=== PATIENT | male | born 1945 | race African-American/Black ===

== ENCOUNTER → 2016-07-25 | Outpatient (CLI) | payer OTHER ==
[~2016-07-25] MED LIST: ALBU0.5N2 INH; ASCO500T3 PO; ASPI-435 PO; ASPI81TA28 PO; DOXY-300 PO; FERR1TAB13 PO; FERR325T5 PO; FLV1 PO; FOLI1TAB7 PO; HYDC25 PO; HYDR-5688 PO; HYDR25TA4 PO; IPRA1AER2 INH; LISI-725 PO; LISI20TA3 PO; LISI40TA PO; METO25TA56 PO; MOME100A INH; MOME200A INH; NF406 PO; NTRGSL/4 UT; NUTR-977 PO; NYSS5 PO; OMEP20CA9 PO; SIMV20TA2 PO; SULF800T23 PO; VNCS125 PO
[2016-07-25 09:13] VITALS: BP 127/69; PULSE 88; TEMP 37.2; O2SAT 94
--- NOTE | 2016-07-25 11:07 | Radiation Oncology Follow-Up ---
Radiation Oncology Follow-Up Date of Visit Jul 25, 2016. Reason For Visit Annual follow-up Radiation Completion Date Seed implant 11/08/09 Diagnosis (1) Prostate cancer Status: Resolved Onset Date: 08/25/2009 Permanent Comment: Rise in PSA to 5.6 clinical stage TIC Status post biopsies biopsy stage T2b [place] grade 3+3 Last Edited By: Liz Geiger on Nov 05, 2014 16:29 Interim History He is been doing well over this past year. He completed an AUA score sheet and gave a score of 6. He also completed and expanded prostate cancer index composite for clinical practice and gave a score of one of 12 and urinary incontinence symptoms. He gave a score of 0 of 12 in urinary irritation symptoms. He gave a score of 0 of 12 and bowel symptoms. He gave a score of 8 of 12 and sexual symptoms. He is sexually active and uses the erectile pump. He gave a score of 212 in hormonal vitality symptoms. His total was 11 of 60. She developed a mass in his left axilla. He was seen by his primary care physician and referred for biopsy. This is revealed non-Hodgkin's lymphoma. B- cell lymphoma. There are features consistent with mantle cell lymphoma. He has been seen by medical oncology and had a bone marrow biopsy. He has for recheck visit today to review his results. He also had a PET scan. Allergies Coded Allergies: No Known Allergies (Unverified , 11/05/14) Home Medications Scheduled Albuterol 0.5% Soln (Ventolin 0.5% Soln), 1 APPL INH DAILY Ascorbic Acid (Vitamin C), 1 TAB PO DAILY Aspirin (Aspirin 81), 1 TAB PO DAILY Ferrous Sulfate (Kp Ferrous Sulfate), 1 TAB PO DAILY Folic Acid (Folvite *), 1 MG PO DAILY Lisinopril (Zestril), 20 MG PO DAILY Metoprolol Tartrate (Lopressor) (Lopressor), 12.5 MG PO DAILY Omeprazole (Prilosec), 20 MG OR DAILY Simvastatin (Zocor), 20 MG PO DAILY Scheduled PRN Mometasone Furoate-Formoterol (Dulera 100/5 Mcg), 2 PUFFS INH BID PRN for SOB/ Wheezing Miscellaneous Medications Hydrochlorothiazide (Hctz *), 25 MG PO Review of Systems Gastrointestinal: Symptoms: Rectal Bleeding GI Comments: Pt reports "black" on toilet tissue w/wiping;no bright red blood; Oral: Symptoms: No Problems Respiratory: Symptoms: SOB With Exertion, Productive Cough Sputum Character: Clear sputum;states cough is new because he's getting a cold; Urinary: Symptoms: WNL Comments: Occass. drip at the end of his void; Skin: Symptoms: No Problems Physical Exam Vital Signs Date Time Temp Pulse Resp B/P Pulse Ox O2 Delivery O2 Flow Rate FiO2 07/25/16 09:13 37.2 88 24 127/69 94 Fatigue: None General Appearance: no apparent distress Eyes: normal inspection, EOMI ENT: normal ENT inspection, hearing grossly normal Respiratory/Chest: lungs clear, no respiratory distress, no accessory muscle use Cardiovascular: regular rate, rhythm, no gallop, no murmur Anal / Rectum: Rectal examination reveals normal sphincter tone. Prostate reveals no nodules. No rectal masses no rectal bleeding. Extremities: no pedal edema, + pertinent finding (examination of the left axilla reveals a well-healed incision. There is mild seroma. Slight nodularity inferior to the incision.) Neurologic/Psychiatric: no motor/sensory deficits, alert, normal mood/affect Skin: warm/dry Lymphatic: no adenopathy Laboratory Studies Test 07/10/16 09:15 07/25/16 10:15 Myelodysplastic Syndrome (FISH) See Comment Bone Marrow Chromosome Analysis See Comment Flow Cytometry Comment See Comment Additional Studies His last PSA was one year ago and was 0.080. Assessment & Plan Plan: PSA was drawn today prior to examination. He is being seen in medical oncology for the results of his studies. We did briefly discuss that there is possibility of need for radiation to the axilla. We will await the final determination by medical oncology. He should continue to have PSAs yearly. He will need to continue to have annual digital rectal examinations. I've asked him to continue these evaluations through his family physician. A follow-up appointment with our office was not given. He may call if he has any questions or concerns would be happy to see him. Total Time In Follow-Up I spent 15 minutes speaking to the patient performing examination. He has been 15 minutes reviewing information in completing this note. Copy To Maurizio Aceves D.O.; Sulaiman Coughlin M.D.
== END | disposition home or self-care (01) ==
LOC: C.ONC 08:59
PROVIDERS: ATTEND Radiology Radiation Oncology
DX: Z08 Encounter for follow-up examination after completed treatment for malignant neoplasm (principal); Z92.3 Personal history of irradiation; Z85.46 Personal history of malignant neoplasm of prostate

== ENCOUNTER 2016-08-02 08:18 | Day surgery (SDC) | payer OTHER ==
[2016-08-01 09:23] VITALS: BMI 19.0
[~2016-08-02] VITALS: Ht 170.2 cm; Wt 56.4 kg
--- NOTE | 2016-08-02 08:05 | History and Physical ---
History & Physical Date Aug 02, 2016. History of Present Illness The patient is a 70 year old male with h/o nonhodgkins lymphoma for access port Past Medical/Surgical History Medical Problems: (1) Prostate cancer Allergies Coded Allergies: Levofloxacin (Verified Allergy, Mild, VOMITTING, 08/01/16) Penicillins (Verified Allergy, Mild, RASH, 08/01/16) Home Medications Scheduled Albuterol 0.5% Soln (Ventolin 0.5% Soln), 1 APPL INH Q4H Ascorbic Acid (Vitamin C), 1 TAB PO QAM Aspirin (Aspirin 81), 1 TAB PO QAM Ferrous Sulfate (Kp Ferrous Sulfate), 1 TAB PO QAM Folic Acid (Folvite *), 1 MG PO QAM Hydrochlorothiazide (Hctz *), 25 MG PO QAM Lisinopril (Zestril), 40 MG PO QAM Metoprolol Tartrate (Lopressor) (Lopressor), 12.5 MG PO QAM Omeprazole (Prilosec), 20 MG PO QAM Simvastatin (Zocor), 20 MG PO QAM Scheduled PRN Mometasone Furoate-Formoterol (Dulera 100/5 Mcg), 2 PUFFS INH BID PRN for SOB/ Wheezing Physical Examination Skin: warm/dry Eyes: sclerae normal Head: atraumatic Neck: supple Respiratory/Chest: no respiratory distress Cardiovascular: regular rate, rhythm Abdomen / GI: non tender Extremities: normal inspection Neurologic/Psych: alert Diagnosis nonhodgkins lymphoma Plan of Treatment for access port placement
[~2016-08-02 08:18] MED LIST changes: -ASCO500T3 PO; -ASPI81TA28 PO; +ATROPINE SULFATE 0.1 MG/ML 5ML SYR IV PRN; -DOXY-300 PO; +FENTANYL CITRATE INJ 50 MCG/1 ML 2 ML VIAL IV PRN; -FERR325T5 PO; -FOLI1TAB7 PO; -HYDR-5688 PO; -HYDR25TA4 PO; -IPRA1AER2 INH; +KETOROLAC TROMETHAMINE 30 MG/ML VIAL IV. PRN; +LABETALOL HCL IV 5 MG/ML 20ML IV PRN; +LACTATED RINGER'S 1000ML 1,000 ML IV SCH; -LISI-725 PO; -LISI20TA3 PO; -METO25TA56 PO; +MIDAZOLAM HCL 1 MG/ML 2ML VIAL ONE; -MOME200A INH; -NF406 PO; -NTRGSL/4 UT; -NUTR-977 PO; -NYSS5 PO; -OMEP20CA9 PO; +ONDANSETRON INJ 2 MG/ML 2 ML VIAL IV PRN; -SIMV20TA2 PO; -SULF800T23 PO; -VNCS125 PO
[2016-08-02 08:59] VITALS: BP 131/78; PULSE 85; TEMP 37; O2SAT 94; Ht 170.2 cm; Wt 56.4 kg
[2016-08-02] MEDS ORDERED: HYDR-5688 PO (11:03)
--- NOTE | 2016-08-02 11:05 | Discharge Instructions ---
Discharge Instructions Visit Reason for Visit: Non-Hodgkins Lymphoma Discharge Discharge Diagnosis / Problem: A-port placement Activity Recommendations Activity Limitations: as noted below Shower/Bathe: tomorrow Anesthesia . Post Anesthesia Instructions: If you have had General Anesthesia or IV Sedation: * Do not drive today. * Resume driving when surgeon permits. * Do not make important decisions or sign legal documents today. * Call surgeon for: 1. Temperature elevations greater than 101 degrees F. 2. Uncontrollable pain. 3. Excessive bleeding. 4. Persistent nausea and vomiting. 5. Medication intolerance (nausea, vomiting or rash). * For nausea and vomiting use only clear liquids such as: tea, soda, bouillon until nausea subsides, then gradually increase diet as tolerated. * If you have any concerns or questions, call your surgeon's office. If physician is unavailable and it is an emergency, call 911 or go to the nearest emergency room. . Instructions / Follow-Up Instructions / Follow-Up Dr. Jhaveri's office in 2 weeks for suture removal, call [phone] if you do not already have an appt Diet Recommendations Recommended Home Diet: no limitations Pending Studies Studies pending at discharge: no Medical Emergencies . Who to Call and When: Medical Emergencies: If at any time you feel your situation is an emergency, please call 911 immediately. . Non-Emergent Contact Non-Emergency issues call your: Surgeon Call Non-Emergent contact if: you have a fever, temperature is above 101.5, your pain is not controlled, wound has increased redness, wound has increased pain . . "Provider Documentation" section prepared by Eduardo Dobson.
[2016-08-02] MEDS ORDERED: FENTANYL CITRATE INJ 50 MCG/1 ML 2 ML VIAL ONE (11:12)
[2016-08-02] MEDS ORDERED: MIDAZOLAM HCL 1 MG/ML 2ML VIAL ONE (11:12)
[2016-08-02] MEDS ORDERED: PROPOFOL IV EMULSION 10 MG/ML 20 ML VIAL IV ONE (11:26)
[2016-08-02] MEDS ORDERED: LIDOCAINE HCL 2% 2 ML VIAL (20MG/ML) ONE (11:26)
[2016-08-02] MEDS ORDERED: LACTATED RINGER'S 1000ML 1,000 ML IV SCH (11:41)
[2016-08-02] MEDS ORDERED: HYDROCODONE/ACETAMOPHEN 5/325MG TAB PO PRN ×3 (11:45→12:00)
[2016-08-02] MEDS ORDERED: ONDANSETRON INJ 2 MG/ML 2 ML VIAL IV PRN (11:45)
[2016-08-02] MEDS ORDERED: MoRPHine SULFATE 2 MG/ML CARP IV PRN (11:45)
--- NOTE | 2016-08-02 11:59 | [facility] Operative Report ---
Operative Report Operative Date Aug 02, 2016. Pre-Operative Diagnosis h/o nonhodgkins lymphoma for access port Post-Operative Diagnosis same Procedure(s) Performed port Surgeon Dr. Wang Jhaveri Clay Preparation Supervisor Surgeon(s) none Estimated Blood Loss 5 Findings placed via Lt subclavian vein Specimens none per surgeon Anesthesia local / sedation Complication(s) None Disposition Recovery Room / PACU I attest to the content of the Intraoperative Record and any orders documented therein. Any exceptions are noted below.
[2016-08-02] MEDS ORDERED: LIDOCAINE HCL 1% 20 ML VIAL INJ ONE (12:05)
[2016-08-02] MEDS ORDERED: CEFAZOLIN SOD 1 GM VIAL IRRIG ONE (12:05)
[2016-08-02] MEDS ORDERED: HEPARIN SOD (PORCINE) 1000 UNIT/ML 10 ML VIAL FLUSH ONE (12:05)
--- NOTE | 2016-08-02 12:12 | OPERATIVE REPORT ---
DATE OF OPERATION: 08/02/2016 NAME OF OPERATION: Access port placement. PREOPERATIVE DIAGNOSIS: Non-Hodgkin's lymphoma. POSTOPERATIVE DIAGNOSIS: Same. STAFF SURGEON: Dr. Jhaveri. ANESTHESIA: 1% plain lidocaine with sedation. PROCEDURE: The patient was brought in the operating room and placed on the operating table in a supine position. After appropriate sedation, his chest was prepped and draped in usual fashion. 1% plain lidocaine was used to anesthetize the skin and subcutaneous tissue over the left deltopectoral groove. Incision was made carrying dissection down identifying the cephalic vein. I attempted to pass the catheter and a wire. I could not do through this vein. It was ligated. The patient was placed in Trendelenburg position. Then using a puncture technique, the left subclavian vein was localized, a wire passed under fluoroscopy and then the dilator and introducer passed over the wire. The dilator and wire removed. The catheter passed through the introducer, positioned appropriately under fluoroscopy. It was secured using 2-0 chromic catgut suture. A pocket was fashioned in the chest wall. The catheter was attached to the port. Port placed into the pocket. The port was aspirated and flushed with heparinized solution. The port was secured to the muscle using 3-0 Prolene suture. Subcutaneous tissue was reapproximated using 2-0 chromic and plain catgut suture, then the skin reapproximated using 4-0 nylon suture. Dressing applied and patient transferred to recovery room in stable condition. I attest to the content of the Intraoperative Record and any orders documented therein. Any exceptio ns are noted below.
--- NOTE | 2016-08-02 12:18 | Anesthesiology Progress Note ---
Anesthesia Post Op Note Date & Time Aug 02, 2016 at 12:18 Vital Signs Pain Intensity: 0 Vital Signs Past 12 Hours Date Time Temp Pulse Resp B/P Pulse Ox O2 Delivery O2 Flow Rate FiO2 08/02/16 12:00 36.8 88 12 107/63 100 Mask 10 08/02/16 08:59 37 85 20 131/78 94 Room Air Notes Mental Status: alert / awake / arousable, participated in evaluation Pt Amnestic to Procedure: Yes Nausea / Vomiting: adequately controlled Pain: adequately controlled Airway Patency, RR, SpO2: stable & adequate BP & HR: stable & adequate Hydration State: stable & adequate Anesthetic Complications: no major complications apparent
--- NOTE | 2016-08-02 12:21 | DIAGNOSTIC IMAGING REPORT ---
CHEST ONE VIEW PORTABLE CLINICAL HISTORY: Port placement. COMPARISON STUDY: PET/CT July 19, 2016. FINDINGS: The tip of the left subclavian [id number] projects over the distal SVC. There is no pneumothorax. Bibasilar opacities are present. There is mild interstitial thickening. Cardiac size is normal. IMPRESSION: 1. No pneumothorax following placement of a left subclavian [id number]. 2. Bibasilar opacities which could reflect atelectasis or consolidation. Possible trace bilateral pleural effusions. Electronically signed by: Remberto Grimes M.D. 08/02/2016 12:19 PM Dictated Date/Time: 08/02/2016 12:18 PM
[2016-08-02 12:36] VITALS: BP 111/69; PULSE 88; TEMP 37; O2SAT 98
[2016-08-02 13:02] VITALS: BP 117/74; PULSE 89; TEMP 36.9; O2SAT 98
[2016-09-16] MEDS ORDERED: NYSS5 PO (10:36)
[2016-09-16] MEDS ORDERED: SULF800T23 PO (10:36)
[2016-09-16] MEDS ORDERED: VNCS125 PO (10:36)
[2016-12-04] MEDS ORDERED: ASCO500T3 PO (09:39)
[2016-12-04] MEDS ORDERED: METO25TA56 PO (13:52)
[2016-12-04] MEDS ORDERED: SIMV20TA2 PO (13:52)
[2016-12-04] MEDS ORDERED: FOLI1TAB7 PO (13:56)
[2016-12-04] MEDS ORDERED: HYDR25TA4 PO (13:56)
[2016-12-04] MEDS ORDERED: OMEP20CA9 PO (15:12)
== END 2016-08-02 13:11 | disposition home or self-care (01) ==
LOC: C.ACU 08:18
PROVIDERS: ATTEND Surgery
DX: C85.90 Non-Hodgkin lymphoma, unspecified, unspecified site (principal); C61 Malignant neoplasm of prostate; Z88.0 Allergy status to penicillin; Z88.1 Allergy status to other antibiotic agents

== ENCOUNTER 2016-09-13 13:08 | Inpatient (IN) | payer OTHER ==
[~2016-09-13] VITALS: Ht 167.6 cm; Wt 54.3 kg
[~2016-09-13 13:08] MED LIST changes: -ATROPINE SULFATE 0.1 MG/ML 5ML SYR IV PRN; -FENTANYL CITRATE INJ 50 MCG/1 ML 2 ML VIAL IV PRN; +HYDR-5688 PO; -KETOROLAC TROMETHAMINE 30 MG/ML VIAL IV. PRN; -LABETALOL HCL IV 5 MG/ML 20ML IV PRN; -LACTATED RINGER'S 1000ML 1,000 ML IV SCH; -MIDAZOLAM HCL 1 MG/ML 2ML VIAL ONE; -ONDANSETRON INJ 2 MG/ML 2 ML VIAL IV PRN
[2016-09-13] MEDS ORDERED: LISI20TA3 PO (13:52)
[2016-09-13] MEDS ORDERED: SODIUM CHLORIDE 0.9% 1000ML 1,000 ML IV STA (14:03)
[2016-09-13] MEDS ORDERED: MAGNESIUM SULFATE 1GM / D5W 1 GM BAG IV STA (14:03)
[2016-09-13] MEDS ORDERED: CEFEPIME IV 1,000 MG in DEXTROSE 5% 100ML 100 ML IV STA (14:03)
--- NOTE | 2016-09-13 15:17 | Medical Student: [facility] ---
Med Student History & Physical Date & Time of Service: Sep 13, 2016 at 15:03 Chief Complaint: Neutropenic Fever Primary Care Physician: Maurizio Aceves D.O. History of Present Illness Source: patient, family 70 y/o male with a history of lymphoma, diagnosed in June (three months ago) , currently being treated with chemotherapy (last treatment nine days ago) presents with a three day history of diarrhea, weakness, fever/chills, and decreased appetite. The patient states that the symptoms started all of sudden three days ago. He has had diarrhea every 2-3 hours. The color of the diarrhea started dark and has now transitioned to lav crewman than normal. He has been eating less and has had alternating bouts of feeling hot and then chilled. The patient has also had three total episodes of vomiting over the past three days. He states that the vomit has consisted of partially digested food. The patient went to see his oncologist today due to his symptoms. The patient was found to have a fever and neutropenia at the office and was sent to the emergency department. The patient also states he has had a runny nose for the past month. He has chronic SOB from COPD. The patient also has been getting Chest pain that "feels like indigestion". He occasionally gets swelling in his legs, usually after chemo treatments. He has had two total chemo treatments to this point. Past Medical/Surgical History 1. Non-Hodgkin Lymphoma 2. Prostate Cancer 3. COPD 4. HTN 5. Reflux 6. High cholesterol Surgical History 1. Lymph node removed in June 2. Seed implant for prostate cancer Family History denies, Mother at age 101 from PNA Social History Smoking Status: Former Smoker (1/2 pack a day for 52 years, quit three months ago) Alcohol Use: none Marital Status: Housing status: lives with family Allergies Coded Allergies: Penicillins (Verified Allergy, Mild, RASH, 09/13/16) Levofloxacin (Verified Adverse Reaction, Mild, VOMITTING, 09/13/16) Medications Ascorbic Acid (Vitamin C), 1 TAB PO QAM Aspirin (Aspirin 81), 1 TAB PO QAM Ferrous Sulfate (Kp Ferrous Sulfate), 1 TAB PO QAM Folic Acid (Folvite), 1 TAB PO DAILY Hydrochlorothiazide (Hctz), 1 TAB PO DAILY Lisinopril (Prinivil), 1 TAB PO DAILY Metoprolol Tartrate (Lopressor) (Lopressor), 12.5 MG PO QAM Mometasone Furoate-Formoterol (Dulera 100/5 Mcg), 2 PUFFS INH BID PRN for SOB/ Wheezing Omeprazole (Prilosec), 20 MG PO QAM Simvastatin (Zocor), 20 MG PO QAM Review of Systems Constitutional: + chills, + fever, + weakness Eyes: No discharge, No redness, No worsening of vision ENT: + nasal symptoms, No hearing loss, No sore throat, No trouble swallowing Respiratory: + shortness of breath, No cough, No sputum, No wheezing Cardiovascular: + chest pain ("indigestion"), No edema, No palpitations Abdomen: + diarrhea, + nausea, + vomiting, No constipation, No pain Musculoskeletal: No joint pain, No muscle pain Genitourinary - Male: No dysuria, No urinary incontinence, No urinary urgency Neurologic: No memory loss, No numbness/tingling, No paralysis, No weakness Psychiatric: No anxiety, No depression symptoms Integumentary: No itch, No new/changing skin lesions, No rash Physical Exam Vital Signs (24 Hours) Date Time Temp Pulse Resp B/P Pulse Ox O2 Delivery O2 Flow Rate FiO2 09/13/16 14:37 105 09/13/16 13:54 108 18 133/72 97 Room Air 09/13/16 13:25 36.4 119 20 102/66 97 Room Air General Appearance: no apparent distress, + thin Head: normocephalic, atraumatic Eyes: normal inspection, EOMI ENT: normal ENT inspection, hearing grossly normal, + pertinent finding ( thrush on tongue) Neck: supple, no adenopathy, trachea midline Respiratory/Chest: chest non-tender, no respiratory distress, no accessory muscle use, + decreased breath sounds (more prominant at the bases) Cardiovascular: regular rate, rhythm, no edema, no gallop, no murmur Abdomen/GI: normal bowel sounds, non tender, no organomegaly, + distended Back: normal inspection, no CVA tenderness Extremities/Musculoskelatal: normal inspection, no calf tenderness, no pedal edema Neurologic/Psych: alert, normal mood/affect, oriented x 3 Skin: normal color, warm/dry, no rash Diagnostics Laboratory Results Test 07/10/16 09:15 07/25/16 10:15 07/25/16 11:17 07/31/16 15:11 Myelodysplastic Syndrome (FISH) See Comment Bone Marrow Chromosome Analysis See Comment Flow Cytometry Comment See Comment Prostate Specific Antigen 0.040 Hepatitis A IgM Antibody NON-REACTIVE Hepatitis B Surface Antigen NEG Hepatitis B Core IgM Antibody NON-REACTIVE Hepatitis C Antibody NEG Immature Granulocyte % (Auto) 0.1 White Blood Count 8.27 Red Blood Count 5.28 Hemoglobin 14.3 Hematocrit 44.4 Mean Corpuscular Volume 84.1 Mean Corpuscular Hemoglobin 27.1 Mean Corpuscular Hemoglobin Concent 32.2 Platelet Count 187 Mean Platelet Volume 10.8 H Neutrophils (%) (Auto) 66.2 Lymphocytes (%) (Auto) 20.2 Monocytes (%) (Auto) 8.5 Eosinophils (%) (Auto) 4.8 Basophils (%) (Auto) 0.2 Neutrophils # (Auto) 5.47 Lymphocytes # (Auto) 1.67 Monocytes # (Auto) 0.70 H Eosinophils # (Auto) 0.40 Basophils # (Auto) 0.02 Immature Granulocyte # (Auto) 0.01 Test 08/28/16 08:40 09/04/16 08:33 09/13/16 11:25 09/13/16 15:15 White Blood Count 27.13 H 17.33 H 1.66 L Red Blood Count 4.09 L 3.75 L 3.51 L Hemoglobin 10.9 L 10.1 L 9.3 L Hematocrit 33.1 L 30.9 L 28.4 L Mean Corpuscular Volume 80.9 82.4 80.9 Mean Corpuscular Hemoglobin 26.7 26.9 26.5 Mean Corpuscular Hemoglobin Concent 32.9 32.7 32.7 Platelet Count 541 H 467 H 186 Mean Platelet Volume 9.5 9.0 10.4 Neutrophils (%) (Auto) 90.1 71.5 Lymphocytes (%) (Auto) 4.8 8.8 Monocytes (%) (Auto) 4.3 12.9 Eosinophils (%) (Auto) 0.0 4.3 Basophils (%) (Auto) 0.1 0.2 Neutrophils # (Auto) 24.43 H 12.39 H Lymphocytes # (Auto) 1.29 1.53 Monocytes # (Auto) 1.18 H 2.23 H Eosinophils # (Auto) 0.00 0.75 H Basophils # (Auto) 0.03 0.04 RDW Standard Deviation 40.2 43.6 42.3 RDW Coefficient of Variation 13.6 14.8 H 14.3 Immature Granulocyte % (Auto) 0.7 2.3 Immature Granulocyte # (Auto) 0.20 H 0.39 H Sodium Level 135 L 141 139 Potassium Level 4.6 4.4 4.8 Chloride Level 97 L 104 110 H Carbon Dioxide Level 25 23 21 Anion Gap 13.0 H 14.0 H 8.0 Blood Urea Nitrogen 55 H 17 28 H Creatinine 2.70 H 1.30 1.30 Estimated GFR () 26.1 63.2 63.2 Estimated GFR (Non- 22.5 54.5 54.5 BUN/Creatinine Ratio 20.3 H 12.8 21.4 H Random Glucose 190 H 147 H 111 H Calcium Level 9.5 9.2 8.8 Total Bilirubin 0.3 0.2 0.2 Aspartate Amino Transferase (AST) 51 H 28 20 Alanine Aminotransferase (ALT) 50 41 29 Alkaline Phosphatase 166 H 124 H 101 Lactate Dehydrogenase 194 149 152 Total Protein 7.3 6.4 6.9 Albumin 2.0 L 2.1 L 2.5 L Globulin 5.3 H 4.3 H 4.4 H Albumin/Globulin Ratio 0.4 L 0.5 L 0.6 L Neutrophils % (Manual) 22.3 Lymphocytes % (Manual) 46.4 Monocytes % (Manual) 16.1 Eosinophils % (Manual) 12.5 Basophils % (Manual) 1.8 Promyelocytes % 0.9 Neutrophils # (Manual) 0.37 L Total Absolute Neutrophils 0.37 *L Lymphocytes # (Manual) 0.77 L Total Absolute Lymphocytes 0.77 L Monocytes # (Manual) 0.27 Eosinophils # (Manual) 0.21 Basophils # (Manual) 0.03 Promyelocytes # 0.01 H Blood Smear Review Toxic Granulation 1+ Dohle Bodies 1+ Magnesium Level 1.5 L Influenza Type A (RT-PCR) Pending Influenza Type B (RT-PCR) Pending Test 09/13/16 15:25 Urine Color YELLOW Urine Appearance CLEAR Urine pH 5.0 Urine Specific [place] 1.011 Urine Protein NEG Urine Glucose (UA) NEG Urine Ketones NEG Urine Occult Blood NEG Urine Nitrite NEG Urine Bilirubin NEG Urine Urobilinogen NEG Urine Leukocyte Esterase NEG Last 24 Hours Test 09/13/16 15:15 09/13/16 15:25 Urine Color YELLOW Urine Appearance CLEAR Urine pH 5.0 Urine Specific [place] 1.011 Urine Protein NEG Urine Glucose (UA) NEG Urine Ketones NEG Urine Occult Blood NEG Urine Nitrite NEG Urine Bilirubin NEG Urine Urobilinogen NEG Urine Leukocyte Esterase NEG Microbiology Results 09/13/16 Blood Culture, Received Pending 09/13/16 Blood Culture, Received Pending Impression Assessment and Plan 70y/o male being treated for non-hodgkin lymphoma with chemo presents with a 3 day history of diarrhea and weakness, with neutrophil count of 270 and fever in oncologist office today. The patient meets the criteria for neutropenic fever and will be treated with Cefepime. In terms of finding a source for the neutropenic fever, the patient has been complaining of diarrhea, so a C-diff toxin test has been ordered. CXR, UA, MRSA DNA nasal swab have also been ordered to look for potential sources of infection. Neutropenic Fever- Administer Cefepime HCl 1000mg IV. Administer Neupogen 300mcg SQ. The patient has a low magnesium at 1.5. He has received magnesium supplementation in the ED and will continue to Magnesium levels. Continue to monitor blood counts, including WBC and neutrophil count. Await results of CXR, MRSA nasal swab, UA, and C-diff toxin test. Blood cultures pending. Ondansetron 4mg IV as needed for nausea. The patient's BUN/creatinine level is slightly elevated. Administer 1/2 NS IV as maintenance fluid at 100ml per hour. Oral Thrush- Administer Nystatin 10ml QID. COPD- Administer Mometasone 2puffs INH BID as needed for symptoms. HTN- Administer Metoprolol 12.5mg PO QAM and ASA 81mg PO QAM Reflux- Administer Omeprazole 20mg PO QAM GRACY. High cholesterol- Administer Simvastatin 20mg PO QAM. Supplementation- Administer Ascorbic acid 500mg PO QAM, Folic acid 1mg PO daily , and Ferrous sulfate 1 tab PO QAM. DVT prophylaxis- Administer Enoxaparin 40mg SQ [id number]. Level of Care Med/Surg DVT Prophylaxis enoxaparin (Lovenox) SQ, T.E.D. stockings, SCDs
--- NOTE | 2016-09-13 15:41 | DIAGNOSTIC IMAGING REPORT ---
CHEST ONE VIEW PORTABLE CLINICAL HISTORY: fever, cough COMPARISON STUDY: 08/02/2016 FINDINGS: Bibasilar parenchymal infiltrates. Central catheter in superior vena cava. Mid and upper lungs are clear. IMPRESSION: Bibasilar parenchymal infiltrates slightly progressive compared to the prior exam. Electronically signed by: Jose Purcell M.D. 09/13/2016 3:40 PM Dictated Date/Time: 09/13/2016 3:39 PM
[2016-09-13 15:42] LABS: URINE APPEARANCE CLEAR (CLEAR); URINE BILIRUBIN NEG (NEG); URINE COLOR YELLOW; URINE NITRITE NEG (NEG); URINE SPECIFIC GRAVITY 1.011 (1.000-1.030); UROBILINOGEN NEG (NEG)
[2016-09-13 15:44] LABS: MANUAL MICROSCOPIC REQUIRED? NO; REVIEW REQ? NO
--- NOTE | 2016-09-13 15:53 | EMERGENCY ROOM VISIT NOTE ---
History Report prepared by Juliette: Chad Ennis Under the Supervision of: Dr. Vipul Brewer M.D. First contact with patient: 13:51 Chief Complaint: FEVER Stated Complaint: WHITE CELLS DOWN, FEVER, IMMUNE SYSTEM IS DOWN History of Present Illness The patient is a 70 year old male who presents to the Emergency Room with complaints of a persistent fever starting 3 days ago. He also complains of runny nose, nausea, vomiting, and diarrhea. He also has increased thirst and a loss of appetite for the past few days. He has been taking Tylenol and Pedialyte without relief. He denies cough, urinary symptoms, rash, or any other complaints. He reports chronic abdominal pain. The patient was diagnosed with Lymphoma in July. He has been receiving chemotherapy and denies any radiation treatment. His last chemo session was on September 04. He was noted to by Neutropenic today at the Cancer Center. Source of History: patient Onset: 3 days ago Position: other (global) Quality: other (fever) Timing: other (persistent) Modifying Factors (Relieving): tylenol (without relief), other (Pedialyte without relief) Associated Symptoms: + abdominal pain (chronic), + diarrhea, + nausea, + vomiting, No cough, No urinary symptoms Review of Systems See HPI for pertinent positives & negatives. A total of 10 systems reviewed and were otherwise negative. Past Medical & Surgical Medical Problems: (1) Neutropenic fever (2) Prostate cancer Family History Patient reports no known family medical history. Social History Smoking Status: Former Smoker Marital Status: Occupation Status: retired Current/Historical Medications Scheduled Ascorbic Acid (Vitamin C), 1 TAB PO QAM Aspirin (Aspirin 81), 1 TAB PO QAM Ferrous Sulfate (Kp Ferrous Sulfate), 1 TAB PO QAM Folic Acid (Folvite), 1 TAB PO DAILY Hydrochlorothiazide (Hctz), 1 TAB PO DAILY Lisinopril (Prinivil), 1 TAB PO DAILY Metoprolol Tartrate (Lopressor) (Lopressor), 12.5 MG PO QAM Omeprazole (Prilosec), 20 MG PO QAM Simvastatin (Zocor), 20 MG PO QAM Scheduled PRN Mometasone Furoate-Formoterol (Dulera 100/5 Mcg), 2 PUFFS INH BID PRN for SOB/ Wheezing Allergies Coded Allergies: Penicillins (Verified Allergy, Mild, RASH, 09/13/16) Levofloxacin (Verified Adverse Reaction, Mild, VOMITTING, 09/13/16) Physical Exam Vital Signs Date Time Temp Pulse Resp B/P Pulse Ox O2 Delivery O2 Flow Rate FiO2 09/13/16 17:47 105 29 129/65 98 Room Air 09/13/16 15:23 111 25 118/73 99 Nasal Cannula 1.0 09/13/16 14:37 105 09/13/16 13:54 108 18 133/72 97 Room Air 09/13/16 13:25 36.4 119 20 102/66 97 Room Air Physical Exam GENERAL: Patient is in no acute distress. HEENT: No acute trauma, normocephalic atraumatic, mucous membranes dry, no nasal congestion, no scleral icterus. Possible oral thrush. NECK: No stridor, no adenopathy, no meningismus, trachea is midline. LUNGS: Clear to auscultation bilaterally, no wheeze, no rhonchi, breath sounds equal. HEART: Tachycardic and slightly irregular, no murmurs. ABDOMEN: Soft, nontender, bowel sounds positive, no hernias, no peritonitis. EXTREMITIES: No cyanosis or edema, full range of motion of all the joints without pain or difficulty, no signs for acute trauma. NEUROLOGIC: Oriented x 3, no acute motor or sensory deficits, no focal weakness. SKIN: No rash, no jaundice, no diaphoresis. Medical Decision & Procedures ER Provider Diagnostic Interpretation: X-ray results as stated below per interpretation by me and the radiologist: CHEST ONE VIEW PORTABLE CLINICAL HISTORY: fever, cough COMPARISON STUDY: 08/02/2016 FINDINGS: Bibasilar parenchymal infiltrates. Central catheter in superior vena cava. Mid and upper lungs are clear. IMPRESSION: Bibasilar parenchymal infiltrates slightly progressive compared to the prior exam. Electronically signed by: Jose Purcell M.D. 09/13/2016 3:40 PM Dictated Date/Time: 09/13/2016 3:39 PM Laboratory Results 09/13/16 14:17 09/13/16 14:17 Test 09/13/16 14:17 09/13/16 15:15 09/13/16 15:25 Red Blood Count 3.29 M/uL (4.7-6.1) Mean Corpuscular Volume 79.3 fL (80-100) Mean Corpuscular Hemoglobin 26.1 pg (25-34) Mean Corpuscular Hemoglobin Concent 33.0 g/dl (32-36) RDW Standard Deviation 40.6 fL (36.4-46.3) RDW Coefficient of Variation 14.3 % (11.5-14.5) Mean Platelet Volume 10.2 fL (7.4-10.4) Prothrombin Time 11.4 SECONDS (9.0-12.0) Prothromb Time International Ratio 1.1 (0.9-1.1) Activated Partial Thromboplast Time 36.6 SECONDS (21.0-31.0) Partial Thromboplastin Ratio 1.4 Est Creatinine Clear Calc Drug Dose 42.7 ml/min Estimated GFR () 69.6 Estimated GFR (Non- 60.1 Influenza Type A (RT-PCR) Neg for Influ A (NEG) Influenza Type B (RT-PCR) Neg for Influ B (NEG) Urine Color YELLOW Urine Appearance CLEAR (CLEAR) Urine pH 5.0 (4.5-7.5) Urine Specific [place] 1.011 (1.000-1.030) Urine Protein NEG (NEG) Urine Glucose (UA) NEG (NEG) Urine Ketones NEG (NEG) Urine Occult Blood NEG (NEG) Urine Nitrite NEG (NEG) Urine Bilirubin NEG (NEG) Urine Urobilinogen NEG (NEG) Urine Leukocyte Esterase NEG (NEG) Laboratory results reviewed by me. Medications Administered Medications (Trade) Dose Ordered Sig/Sigrid Route Start Time Stop Time Status Last Admin Dose Admin Sodium Chloride (Nss 1000ml) 1,000 ml @ 125 mls/hr Q8H STAT IV 09/13/16 14:03 09/13/16 22:02 09/13/16 14:30 125 MLS/HR Magnesium Sulfate 1 gm 1 gm NOW STAT IV 09/13/16 14:03 09/13/16 14:06 DC 09/13/16 15:18 1 GM Cefepime HCl/ Dextrose (Maxipime IV/D5 100ml) 111.3 ml @ 200 mls/hr NOW STAT IV 09/13/16 14:03 09/13/16 14:36 DC 09/13/16 14:29 200 MLS/HR Procedure Labs obtained from earlier today showed white blood cell count of 1.6, hemoglobin of 9.3, platelet count of 186, he was neutropenic with neutrophil count of 270, magnesium of 1.5, and potassium of 4.8. ECG Indication: nausea, vomiting, other (fever) Rate (beats per minute): 109 Rhythm: sinus tachycardia Findings: PVC, no acute ischemic change, other (Old septal infarct) ED Course 1351: The patient was evaluated in room A09B. A complete history and physical exam was performed. 1403: Cefepime HCl 1000 mg/Dextrose 111.3 ml @ 200 mls/hr IV, Magnesium Sulfate 1 gm IV, Sodium Chloride 1000 ml @ 125 mls/hr IV 1405: I discussed results and treatment plan with the patient. He verbalizes agreement and understanding. The patient will be evaluated for further management. 1408: I discussed the patient's case with Dr. Cotton, from [facility]. Medical Decision Differential diagnosis includes but is not limited to bacteremia, sepsis, dehydration, electrolyte imbalance, UTI, cellulitis, pneumonia, viral illness. The patient was found to be neutropenic earlier today at his cancer center visit. He complains of a fever for a few days. He was also noted to be hypomagnesemic earlier today by laboratory testing. He was referred to the emergency room. Patient had blood cultures ordered, these results are pending. Urinalysis does not show evidence for infection. Chest x-ray does show a possible bilateral lower lobe pneumonia. Influenza testing was negative. The patient received IV saline, IV magnesium and IV cefepime. The cefepime was given for antibiotic coverage given the neutropenia. The patient presents with fever, he is neutropenic and hypomagnesemic. He is undergoing treatment for lymphoma. Admission/observation is warranted. It appears that the fever is from pneumonia. I spoke to the patient and case management. The on-call hospitalist was consulted. Consults Time Called: 1407 Consulting Physician: Dr. Cotton, from [facility] Returned Call: 1408 I discussed the patient's case with Dr. Cotton, from [facility]. Impression Primary Impression: Neutropenia Additional Impressions: Fever Dehydration Hypomagnesemia Lymphoma Pneumonia Scribe Attestation The scribe's documentation has been prepared under my direction and personally reviewed by me in its entirety. I confirm that the note above accurately reflects all work, treatment, procedures, and medical decision making performed by me. Departure Information Dispostion Being Evaluated By Hospitalist Referrals Maurizio Aceves D.O. (PCP) Patient Instructions My [facility] Problem Qualifiers
[2016-09-13] MEDS ORDERED: MAGNESIUM HYDROXIDE SUSP 30 ML UDC PO PRN (16:00)
[2016-09-13] MEDS ORDERED: ACETAMINOPHEN 325 MG TAB PO PRN (16:00)
[2016-09-13] MEDS ORDERED: ONDANSETRON INJ 2 MG/ML 2 ML VIAL IV PRN (16:00)
[2016-09-13] MEDS ORDERED: POLYETHYLENE (MIRALAX) 17 GM PACK PO PRN (16:00)
[2016-09-13 17:06] LABS: INFLUENZA A PCR Neg for Influ A (NEG); INFLUENZA B PCR Neg for Influ B (NEG)
--- NOTE | 2016-09-13 17:13 | History and Physical ---
History & Physical Date of Service Sep 13, 2016. History & Physical admit #[id number]
[2016-09-13 17:38] LABS: INR 1.1 (0.9-1.1); PARTIAL THROMBOPLASTIN RATIO 1.4; PROTHROMBIN TIME (PATIENT) 11.4 SECONDS (9.0-12.0)
[2016-09-13 17:39] LABS: CREATININE 1.2 mg/dl (0.60-1.40)
[2016-09-13 17:42] LABS: HEMATOCRIT 26.1 % (42-52); MEAN CELL VOLUME 79.3 fL (80-100); MEAN CORPUSCULAR HEMOGLOBIN 26.1 pg (25-34); MEAN PLATELET VOLUME 10.2 fL (7.4-10.4); PLATELET COUNT 174 K/uL (130-400); RED BLOOD COUNT 3.29 M/uL (4.7-6.1); WHITE BLOOD COUNT 1.61 K/uL (4.8-10.8)
--- NOTE | 2016-09-13 18:07 | HISTORY & PHYSICAL EXAMINATION ---
DATE OF ADMISSION: 09/13/2016 CHIEF COMPLAINT: Neutropenic fever. HISTORY OF PRESENT ILLNESS: The patient is a very pleasant 70-year-old male who presents at the direction of the cancer center for a neutropenic fever. He has lymphoma that was just diagnosed in June. He has been treated with chemo, his last treatment was 9 days ago and he has had 3-4 days of diarrhea he notes up to every 2 hours [id number] waking or sleeping, weakness, fevers, chills, decreased appetite and shortness of breath. The shortness of breath precedes all of the other symptoms by quite a while, but the rest of his symptoms started about 3 days ago. He notes that the diarrhea started dark and now it has transitioned to helmet hat brim cutter, but basically he is just feeling miserable, losing lots of fluid through the diarrhea, not eating very well and having hot and chill. The patient has also had a little bit of vomiting, went to see his oncologist today, was found to have a fever at the appointment, was checked and found to be neutropenic so he was sent to the ER for further evaluation. REVIEW OF SYSTEMS: Essentially only positive for runny nose and congestion. Review of systems is otherwise negative except for as above. PAST MEDICAL HISTORY: Includes non-Hodgkin's lymphoma, prostate cancer, COPD, hypertension, GERD, hyperlipidemia. PAST SURGICAL HISTORY: Includes seed implant for prostate cancer and a lymph node resection in June. FAMILY HISTORY: Mom at 101 from pneumonia. SOCIAL HISTORY: He quit smoking about 3 months ago, but smoked half pack a day for 52 years. No alcohol. He is . He lives with his . ALLERGIES: PENICILLIN AND LEVAQUIN. CURRENT HOME MEDICATIONS: Vitamin C daily, aspirin 81 mg daily, iron sulfate daily, folate daily, hydrochlorothiazide, lisinopril and metoprolol all daily, Dulera 100/5 two puffs b.i.d., Prilosec 20 mg daily. PHYSICAL EXAMINATION: VITAL SIGNS: Temp 36.4, temperature 119, respiratory rate 20, blood pressure 102/66, 97% on room air. He was febrile over at the cancer center, although I do not have those vitals in front of me, it was documented. GENERAL: He is awake, alert, oriented x3, fatigued appearing but otherwise in no acute distress. HEENT: Normocephalic, atraumatic. Mucous membranes are moist. He does have white plaques on his tongue. NECK: Supple. CARDIOVASCULAR: Regular without rubs, murmurs, or gallops. He is slightly tachycardic. LUNGS: Overall clear; however, he does have bibasilar rales. No rhonchi, no wheezes. Good effort. No accessory muscle use. ABDOMEN: Soft, nondistended, nontender, no masses or organomegaly. EXTREMITIES: Without cyanosis, clubbing or edema. No calf tenderness. SKIN: Shows no rashes, no pallor or icterus. NEUROLOGIC: Shows cranial nerves II through XII to be grossly intact. Gross motor and sensory are intact. MENTAL STATE: Shows good recent and remote recall. Normal mood and affect. Good judgment and insight. LABS AND DIAGNOSTICS: Urinalysis specific gravity 1.011, otherwise negative. Flu is negative. His CBC showed a white count of 1.66, hemoglobin 9.3, platelets 186 with 71.5% neutrophils, but an absolute neutrophil count of 0.37. Sodium 139, potassium 4.8, chloride 110, CO2 of 21, BUN 28, creatinine 1.3, calcium 8.8, glucose 111, mag 1.5, total bili 0.2 with an AST of 20, ALT 29, alkaline phosphatase 101. LDH 152, total protein 6.9 with an albumin of 2.5. Chest x-ray shows bibasilar parenchymal infiltrates progressed compared to prior exam of 08/02/2016. Blood cultures are pending. Urine culture and MRSA nares has been ordered. ASSESSMENT AND PLAN: 1. Neutropenic fever. It appears 2 possible nidus is for infection between Healthcare-associated pneumonia and possible Clostridium difficile diarrhea. We will check stool for Clostridium difficile and start oral vancomycin if positive. He has already been started on cefepime for his possible pneumonia, we will definitely continue this and if his methicillin-resistant Staphylococcus aureus nares is positive start him on vancomycin. Follow closely, follow his white count, give him a dose of colony stimulating factor. He is fairly small, so will start a lower dose. Follow his CBC daily and follow up on his cultures. 2. Diarrhea, see above. Treat for possible C. diff. 3. Bibasilar pneumonia. See above, treat with cefepime and add vancomycin if he is methicillin-resistant Staphylococcus aureus nares positive. 4. Mild tachycardia, follow. 5. Mild dehydration. IV fluids, follow up with basic metabolic panel, follow his clinical status. 6. Thrush, Nystatin swish and swallow. 7. Hypertension. Continue his home meds. 8. Hyperlipidemia. Continue home meds. 9. Deep venous thrombosis prophylaxis, Lovenox.
[2016-09-13 18:58] VITALS: BP 135/73; PULSE 115; TEMP 37.2; O2SAT 95
[2016-09-13] MEDS ORDERED: FILGRASTIM 300 MCG/ML 1 ML VIAL SQ ONE (19:04)
[2016-09-13] MEDS: SODIUM CHLOR 0.45% + 20MEQ KCL 1,000 ML IV SCH (19:59)
[2016-09-13] MEDS ORDERED: CEFEPIME CONSULT ACTIVE PRN ×2 (20:00)
[2016-09-13] MEDS: ENOXAPARIN 40 MG/0.4 ML SYR SQ SCH (20:21)
--- NOTE | 2016-09-13 20:24 | Progress Note ---
Progress Note Date of Service Sep 13, 2016. Progress Note I was phone regarding patient not having code status documented. I went to the bedside. - Patient would like CPR and Defibrillation/Cardioversion in emergent situation - Patient would like to be intubated if required to support breathing in an emergent situation - Patient designates , Rachelle Pink, as substitute decision maker, if he cannot make decisions for himself. Level I Code status was ordered in the EMR
[2016-09-13 20:38] VITALS: BP 135/73; PULSE 98; TEMP 37.2; O2SAT 95; Ht 167.6 cm; Wt 54.3 kg
[2016-09-13] MEDS: NYSTATIN SUSP 500,000 U/5 ML UDC PO SCH ×2 (20:57→20:58)
[2016-09-13 23:39] VITALS: BP 137/78; PULSE 109; TEMP 36.8; O2SAT 98
[2016-09-14] MEDS: CEFEPIME IV 2,000 MG in DEXTROSE 5% 100ML 100 ML IV SCH ×2 (02:24→13:30)
[2016-09-14] MEDS: SODIUM CHLOR 0.45% + 20MEQ KCL 1,000 ML IV SCH ×2 (02:24→15:48)
[2016-09-14 06:01] LABS: HEMATOCRIT 25.8 % (42-52); MEAN CELL VOLUME 79.6 fL (80-100); MEAN CORPUSCULAR HEMOGLOBIN 26.2 pg (25-34); MEAN CORPUSCULAR HGB CONC 32.9 g/dl (32-36); MEAN PLATELET VOLUME 10.1 fL (7.4-10.4); PLATELET COUNT 158 K/uL (130-400); RED BLOOD COUNT 3.24 M/uL (4.7-6.1); WHITE BLOOD COUNT 3.14 K/uL (4.8-10.8)
[2016-09-14 06:32] LABS: BUN/CREATININE RATIO 18.5 (10-20); CALCIUM 8.7 mg/dl (8.5-10.1); CREATININE 1.1 mg/dl (0.60-1.40); MAGNESIUM 1.6 mg/dl (1.8-2.4); POTASSIUM 5.4 mmol/L (3.5-5.1)
[2016-09-14 06:33] LABS: BASO ABS # 0.03 K/uL (0-0.2); BASOPHIL % 0.9 % (0-2); COMPLETE YES; ECHINOCYTES 1+; EOSINOPHIL % 4.5 %; LYMPH ABS # 1.18 K/uL (1.2-3.4); LYMPHOCYTE % 37.5 %; META ABS # 0.03 K/uL (0-0); METAMYELOCYTE % 0.9 %
[2016-09-14 07:03] VITALS: BP 130/82; PULSE 108; TEMP 37.1; O2SAT 97
[2016-09-14] MEDS: PANTOprazole SOD 40 MG TAB PO SCH (08:00)
[2016-09-14] MEDS: ASPIRIN 81 MG ECTAB PO SCH (08:00)
[2016-09-14] MEDS: METOPROLOL TARTRATE 25 MG TAB PO SCH (08:00)
[2016-09-14] MEDS: NYSTATIN SUSP 500,000 U/5 ML UDC PO SCH ×4 (08:00→21:28)
[2016-09-14] MEDS: ASCORBIC ACID 500 MG TAB PO SCH (08:00)
[2016-09-14] MEDS: FERROUS SULFATE 325 MG TAB PO SCH (08:00)
[2016-09-14] MEDS: SIMVASTATIN 20 MG TAB PO SCH (08:01)
--- NOTE | 2016-09-14 08:44 | ONCOLOGY CONSULTATION ---
DATE OF CONSULTATION: 09/14/2016 DATE OF CONSULTATION: 09/14/2016. REASON FOR CONSULTATION: Neutropenic fever. HISTORY OF PRESENT ILLNESS: is a very pleasant 70-year-old -Wel[place] gentleman with recent diagnosis of mantle cell lymphoma. He was recommended and received 2 courses of R-CHOP chemotherapy, last administered about a week ago. The patient returned to clinic for follow-up visit yesterday complaining of 3-4 days of watery diarrhea with low grade fever. He also admits to decreased appetite and loss of weight. Because of his fever and absolute neutrophil count he was recommended to go directly to the Emergency Room for further evaluation. was diagnosed again in late 2015 after being in otherwise good health and noted some fullness in the left axillary region. He underwent a left axillary lymphadenopathy on 06/06/2016 and pathology confirmed features consistent with mantle cell lymphoma. Staging PET revealed multiple small lymph nodes in the precarinal and perihilar region. There is no evidence of disease below the diaphragm. Bone marrow biopsy and aspiration was also negative. Nonetheless, because of the aggressive nature of this type of lymphoma he was recommended to receive R-CHOP chemotherapy. PAST MEDICAL HISTORY: Significant for mantle cell lymphoma and prostate cancer. PAST SURGICAL HISTORY: Lymphadenectomy for biopsy, fracture bilateral arms and requiring operative fixation and rotator cuff repair. HOME MEDICATIONS: Include Compazine 10 mg p.o. q. 6-8 hours p.r.n., Zofran 8 mg p.o. q. 8 hours as needed for nausea, aspirin 81 mg p.o. q. daily, ferrous sulfate 325 mg p.o. q. daily, folic acid 1 mg p.o. q. daily, hydrochlorothiazide 25 mg p.o. q. daily, lisinopril 40 mg p.o. q. daily, metoprolol 25 mg p.o. q. daily, Nitrostat 0.4 mg p.r.n. sublingual, omeprazole 20 mg p.o. q. daily p.r.n., vitamin C 500 mg p.o. q. daily, and Zocor 20 mg p.o. q. daily. ALLERGIES: PENICILLINS. 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 Negative for ETOH. FAMILY HISTORY: Mother living at 102 years of age. Father from aneurysm. REVIEW OF SYSTEMS: Most notably for anorexia, weight loss, low grade fever and diarrhea. SKIN: No rashes or lesions. No history of dermatoses. HEAD, EYES, EARS, NOSE, AND THROAT: Negative for headaches, lightheadedness or dizziness. He denies any visual or hearing deficits. No sinus symptoms, sore throat or dysphagia presently. LYMPH: Positive for lymphadenopathy, establishing a diagnosis of mantle cell lymphoma. No current adenopathy described. CARDIAC: Negative for coronary artery disease. No current angina or palpitations. PULMONARY: Negative for COPD. No shortness of breath, dyspnea or orthopnea. No cough or hemoptysis. GASTROINTESTINAL: As per HPI. GENITOURINARY: Positive history of prostate cancer. No hematuria, dysuria, urinary incontinence. PSYCHIATRIC: No history of anxiety, depression or psychoses. ENDOCRINE: Negative for diabetes or thyroid disease. NEUROLOGIC: Negative for seizure, stroke, or migraine headache. HEMATOLOGIC: Positive for microcytic anemia and neutropenia. PHYSICAL EXAMINATION: GENERAL: Very pleasant, cachectic appearing 70-year-old -Wel[place] gentleman in no acute distress. VITAL SIGNS: Temperature 37.1, pulse 108, respirations 18, blood pressure 130/82. SKIN: Warm, dry, noncyanotic without petechia, rash or ecchymosis. HEAD, EYES, EARS, NOSE, AND THROAT: Head is atraumatic, normocephalic. Eyes PERRLA, EOMI. Sclerae nonicteric. No conjunctival injection. Nares are patent without rhinorrhea or discharge. Throat clear. Tongue midline. Mucous membranes are moist. NECK: Supple without JVD or thyromegaly. LYMPH: No cervical, supraclavicular, axillary or inguinal palpable nodes. HEART: Regular rate and rhythm. No clicks, rubs, murmurs or gallops. LUNGS: Clear to auscultation bilaterally. ABDOMEN: Soft, nontender, nondistended, without palpable hepatosplenomegaly. EXTREMITIES: No calf tenderness or swelling. No clubbing, cyanosis or edema. MUSCULOSKELETAL: Strength and pulses are equal. NEUROLOGICALLY: He is awake, alert, oriented x3. Cranial nerves II-XII are grossly intact. LABORATORY DATA: WBC count 3,140, hemoglobin 8.5, platelet count 158,000. Sodium 143, potassium 5.4, chloride 115, carbon dioxide 18, creatinine 1.1, BUN 20. Chest x-ray done on admission bibasilar parenchymal infiltrates, slightly progressive compared to prior examination. IMPRESSION: 1. Neutropenic fever. 2. Diarrhea. 3. Bibasilar pneumonia. 4. Mantle cell lymphoma. PLAN: is a pleasant 70-year-old -[place]el[place] gentleman with recent diagnosis of mantle cell lymphoma localized disease. He received his last course of R-CHOP chemotherapy about 9 days ago. He returned to the office for a brief followup yesterday complaining of low grade fever, received IV hydration. Because his ANC was 300 at the time he was recommended admission to the hospital. Appropriately he has been worked up with artis cultures including stool for C. diff toxin. All are pending. MRSA swab was also negative on admission. Clinically, seems to be feeling better. His neutrophils have dramatically improved over the past 24 hours and therefore we will hold off on further granulocyte colony stimulating growth factor. If his cultures remain negative as well as stool negative for C. diff toxin proceed with discharge home unless there is another medical reason to keep him. Will plan on resumption of chemotherapy in about 2 weeks. I will continue to follow along with you during his hospital stay. More importantly ensure that appropriate outpatient followup is scheduled. I have nothing further to add. Thank you again for assisting us in the care of this very pleasant gentleman.
--- NOTE | 2016-09-14 09:06 | Clinical Documentation Query ---
RILEY Loepz : CLINICAL DOCUMENTATION QUERIES QUERY 1 OF 2 Patient is a 70 year old male admitted for treatment of HAP and possible C.Difficile associated diarrhea. He was started on Cefepime IV. Consider clarification as suggested below as clinically appropriate. Thank you. In your clinical opinion is this patient being managed for: (XXX ) (Possible) Gram-negative pneumonia ( ) Other explanation of clinical findings (Please Explain) ( ) Unable to determine (Please Define) ( ) Need to Discuss ( ) Not Agree The medical record reflects the following clinical findings, treatment, and risk factors. Clinical Indicators: As above Treatment: Cefepime IV Risk Factors: Lymphoma, recent hospitalization, recent antibiotics, weakened immune state QUERY 2 OF 2 Documentation includes "thrush". He is being treated with Nystatin swish and swallow. Although implicit, this cannot be assumed by the professional assessment coordinator to be oral candidiasis. Please clarify explicitly in your documentation as this directly impacts DRG assignment. Thank you. In your clinical opinion is this patient being managed for: ( XXX ) Candidal stomatitis ( ) Other explanation of clinical findings (Please Explain) ( ) Unable to determine (Please Define) ( ) Need to Discuss ( ) Not Agree The medical record reflects the following clinical findings, treatment, and risk factors. Clinical Indicators: As above Treatment: Nystatin swish and swallow Risk Factors: Lymphoma, chemotherapy, recent antibiotics, recent hospitalization Please clarify and document your clinical opinion in the progress notes and discharge summary. Terms such as "probable", "suspected", "likely", "questionable", "possible", or "still to be ruled out" are acceptable. IF IN AGREEMENT, YOU MUST DOCUMENT ABOVE DIAGNOSTIC STATEMENT IN DAILY PROGRESS NOTES AND DISCHARGE SUMMARY. This document is not part of the patient's record. Thank You, Dylon Salvador, RN [phone]
--- NOTE | 2016-09-14 09:16 | Discharge Instructions ---
Discharge Instructions Admission Reason for Admission: Neutropenic Fever Discharge Discharge Diagnosis / Problem: neutropenic fever Discharge Goals Goal(s): Diagnostic testing, Therapeutic intervention Activity Recommendations Activity Limitations: resume your previous activity . Instructions / Follow-Up Instructions / Follow-Up Your potassium is slightly elevated which maybe from your lisinopril, we will recommend you to hold this medication at discharge and have your potassium checked next week, with further instructions on this medication from your pcp or oncologist Current Hospital Diet Patient's current hospital diet: Regular Diet Discharge Diet Recommended Diet: Regular Diet Pending Studies Studies pending at discharge: yes List of pending studies: blood cultures Medical Emergencies . Who to Call and When: Medical Emergencies: If at any time you feel your situation is an emergency, please call 911 immediately. . Non-Emergent Contact Non-Emergency issues call your: Primary Care Provider, Oncologist Call Non-Emergent contact if: temperature is above 101 . . "Provider Documentation" section prepared by Andrea Rubio. VTE Core Measure Inpt VTE Proph given/why not?: Contraindicated
--- NOTE | 2016-09-14 14:03 | Progress Note ---
Subjective Date of Service: Sep 14, 2016. Subjective pt states he feels better but is still weak and having diarrhea, has improvement from neutropenia Problem List Medical Problems: (1) Dehydration Status: Acute (2) Fever Status: Acute (3) Hypomagnesemia Status: Acute (4) Lymphoma Status: Acute (5) Neutropenia Status: Acute (6) Pneumonia Status: Acute Review of Systems Constitutional: + fatigue, + weakness, No chills, No fever Respiratory: No cough, No shortness of breath Cardiac: No chest pain, No edema Abdomen: + diarrhea, No nausea, No pain, No vomiting Neurologic: + balance problems, + weakness, No paralysis Objective Vital Signs Date Time Temp Pulse Resp B/P Pulse Ox O2 Delivery O2 Flow Rate FiO2 09/14/16 10:42 Nasal Cannula 1.0 09/14/16 07:03 37.1 108 18 130/82 97 Nasal Cannula 1.0 09/13/16 23:39 36.8 109 18 137/78 98 09/13/16 23:30 Nasal Cannula 1.0 09/13/16 20:38 37.2 98 18 135/73 95 Nasal Cannula 1.0 09/13/16 18:58 37.2 115 18 135/73 95 Nasal Cannula 1.0 09/13/16 18:35 109 23 122/70 100 09/13/16 17:47 105 29 129/65 98 Room Air 09/13/16 15:23 111 25 118/73 99 Nasal Cannula 1.0 09/13/16 14:37 105 Physical Exam General Appearance: + mild distress, + thin Neck: supple, no JVD Respiratory/Chest: chest non-tender, lungs clear, normal breath sounds Cardiovascular: regular rate, rhythm, no murmur Abdomen: normal bowel sounds, non tender, soft Extremities: no pedal edema, no calf tenderness Neurologic/Psychiatric: alert, oriented x 3 Laboratory Results Last 24 Hours Test 09/13/16 14:17 09/13/16 15:15 09/13/16 15:25 09/14/16 05:20 White Blood Count 1.61 K/uL 3.14 K/uL Red Blood Count 3.29 M/uL 3.24 M/uL Hemoglobin 8.6 g/dL 8.5 g/dL Hematocrit 26.1 % 25.8 % Mean Corpuscular Volume 79.3 fL 79.6 fL Mean Corpuscular Hemoglobin 26.1 pg 26.2 pg Mean Corpuscular Hemoglobin Concent 33.0 g/dl 32.9 g/dl RDW Standard Deviation 40.6 fL 41.0 fL RDW Coefficient of Variation 14.3 % 14.3 % Platelet Count 174 K/uL 158 K/uL Mean Platelet Volume 10.2 fL 10.1 fL Prothrombin Time 11.4 SECONDS Prothromb Time International Ratio 1.1 Activated Partial Thromboplast Time 36.6 SECONDS Partial Thromboplastin Ratio 1.4 Creatinine 1.20 mg/dl 1.10 mg/dl Est Creatinine Clear Calc Drug Dose 42.7 ml/min 46.6 ml/min Estimated GFR () 69.6 77.3 Estimated GFR (Non- 60.1 66.7 Influenza Type A (RT-PCR) Neg for Influ A Influenza Type B (RT-PCR) Neg for Influ B Urine Color YELLOW Urine Appearance CLEAR Urine pH 5.0 Urine Specific [place] 1.011 Urine Protein NEG Urine Glucose (UA) NEG Urine Ketones NEG Urine Occult Blood NEG Urine Nitrite NEG Urine Bilirubin NEG Urine Urobilinogen NEG Urine Leukocyte Esterase NEG Neutrophils % (Manual) 41.0 % Lymphocytes % (Manual) 37.5 % Monocytes % (Manual) 15.2 % Eosinophils % (Manual) 4.5 % Basophils % (Manual) 0.9 % Metamyelocytes % 0.9 % Neutrophils # (Manual) 1.29 K/uL Total Absolute Neutrophils 1.29 K/uL Lymphocytes # (Manual) 1.18 K/uL Total Absolute Lymphocytes 1.18 K/uL Monocytes # (Manual) 0.48 K/uL Eosinophils # (Manual) 0.14 K/uL Basophils # (Manual) 0.03 K/uL Metamyelocytes # 0.03 K/uL Echinocytes 1+ Sodium Level 143 mmol/L Potassium Level 5.4 mmol/L Chloride Level 115 mmol/L Carbon Dioxide Level 18 mmol/L Anion Gap 10.0 mmol/L Blood Urea Nitrogen 20 mg/dl BUN/Creatinine Ratio 18.5 Random Glucose 78 mg/dl Calcium Level 8.7 mg/dl Magnesium Level 1.6 mg/dl Assessment and Plan 70 M with fever and neutropeina after treatment for mantle cell lymphoma, found to have C Diff C diff start vancomycin po, cholestid and probiotics . Mild dehydration. IV fluids, follow electrolytes Thrush, Nystatin swish and swallow. Hypertension. metoprolol Deep venous thrombosis prophylaxis, Lovenox.
[2016-09-14 15:38] VITALS: BP 128/78; PULSE 104; TEMP 36.8; O2SAT 98
[2016-09-14] MEDS: VANCOMYCIN HCL 125 MG/2.5ML SOLN PO SCH ×3 (15:48→21:27)
[2016-09-14] MEDS: RASPBERRY SYRUP 5 ML UDP PO SCH ×3 (15:49→21:28)
[2016-09-14 16:01] VITALS: O2SAT 98
[2016-09-14] MEDS: SACCHAROMYCES BOUL (FLORASTOR) 250 MG CAP PO SCH (18:01)
[2016-09-14] MEDS ORDERED: CEFEPIME IV 1,000 MG in DEXTROSE 5% 100ML 100 ML IV SCH (21:00)
[2016-09-14] MEDS: BOOST VANILLA PO SCH ×2 (21:28)
[2016-09-14] MEDS: ENOXAPARIN 40 MG/0.4 ML SYR SQ SCH (21:30)
[2016-09-14] MEDS: COLESTIPOL HCL 5 GM POWDER PACK PO SCH (21:30)
[2016-09-14] MEDS: ALUMINUM/MAGNESIUM/SIMETH (MAALOX MAX) 30 ML UDC PO PRN (21:52)
[2016-09-14] MEDS: SODIUM CHLORIDE 0.45% 1000ML 1,000 ML IV SCH (23:47)
[2016-09-15] VITALS: O2SAT 95
[2016-09-15 00:39] VITALS: BP 137/77; PULSE 105; TEMP 37.2; O2SAT 95
[2016-09-15] MEDS: CEFEPIME IV 2000 MG in DEXTROSE 5% 100ML IV SCH ×2 (02:29→14:01)
[2016-09-15 06:45] LABS: DOHLE BODIES 2+; TOXIC GRANULATION 1+
[2016-09-15] MEDS: FERROUS SULFATE 325 MG TAB PO SCH (07:51)
[2016-09-15] MEDS: ASPIRIN 81 MG ECTAB PO SCH (07:51)
[2016-09-15] MEDS: METOPROLOL TARTRATE 25 MG TAB PO SCH (07:52)
[2016-09-15] MEDS: SACCHAROMYCES BOUL (FLORASTOR) 250 MG CAP PO SCH (07:52)
[2016-09-15] MEDS: VANCOMYCIN HCL 125 MG/2.5ML SOLN PO SCH ×4 (07:53→21:33)
[2016-09-15] MEDS: RASPBERRY SYRUP 5 ML UDP PO SCH ×4 (07:53→21:34)
[2016-09-15] MEDS: PANTOprazole SOD 40 MG TAB PO SCH (07:53)
[2016-09-15] MEDS: SIMVASTATIN 20 MG TAB PO SCH (07:53)
[2016-09-15] MEDS: NYSTATIN SUSP 500,000 U/5 ML UDC PO SCH ×4 (07:53→21:28)
[2016-09-15] MEDS: ASCORBIC ACID 500 MG TAB PO SCH (07:53)
--- NOTE | 2016-09-15 07:53 | Progress Note ---
Subjective Date of Service: Sep 15, 2016. Subjective pt looks much better still with some stools little pain Problem List Medical Problems: (1) Dehydration Status: Acute (2) Fever Status: Acute (3) Hypomagnesemia Status: Acute (4) Lymphoma Status: Acute (5) Neutropenia Status: Acute (6) Pneumonia Status: Acute Review of Systems Constitutional: + weakness, No chills, No fever Respiratory: No cough, No shortness of breath Cardiac: No chest pain, No edema Abdomen: + diarrhea, No nausea, No pain, No vomiting Musculoskeletal: No joint pain, No muscle pain Objective Vital Signs Date Time Temp Pulse Resp B/P Pulse Ox O2 Delivery O2 Flow Rate FiO2 09/15/16 00:39 37.2 105 18 137/77 95 Room Air 09/15/16 00:00 95 Room Air 09/14/16 16:01 98 Nasal Cannula 1.0 09/14/16 15:38 36.8 104 20 128/78 98 Nasal Cannula 1.0 09/14/16 10:42 Nasal Cannula 1.0 Physical Exam General Appearance: WD/WN, + mild distress Neck: supple, no JVD Respiratory/Chest: chest non-tender, lungs clear, normal breath sounds Cardiovascular: regular rate, rhythm, no murmur Abdomen: normal bowel sounds, non tender, soft Extremities: no pedal edema, no calf tenderness Laboratory Results Last 24 Hours Test 09/15/16 07:50 Assessment and Plan 70 M with fever and neutropenia after treatment for mantle cell lymphoma, found to have C Diff I reviewed VSS and labs on 09/15, less bowel movements overnight C diff started vancomycin po 09/14, Colestid and probiotics good reduction in diarrhea small infiltrate on CXR initially treated for pneumonia while neutropenic, repeat cxr 09/15 shows it persists will have on doxycycline when discharged . Mild dehydration. resolved, replete electrolytes, still slightly tachy 09/15 oral Thrush, candidial stomatitis Nystatin swish and swallow is improving. Hypertension. metoprolol Deep venous thrombosis prophylaxis, Lovenox.
[2016-09-15] MEDS: SODIUM CHLORIDE 0.45% 1000ML 1,000 ML IV SCH ×2 (07:54→19:37)
[2016-09-15] MEDS: ALUMINUM/MAGNESIUM/SIMETH (MAALOX MAX) 30 ML UDC PO PRN ×2 (07:54→12:48)
[2016-09-15 08:00] VITALS: BP 144/84; PULSE 92; TEMP 36.7; O2SAT 96
--- NOTE | 2016-09-15 08:29 | HEME/ONC PROGRESS NOTE ---
DATE: 09/15/2016 DATE: 09/15/2016. DIAGNOSES: 1. Clostridium difficile colitis. 2. Neutropenic fever. 3. Diarrhea. 4. Bibasilar pneumonia. HOSPITAL COURSE: is a very pleasant 70-year-old -[place] gentleman who was admitted yesterday with fever of unknown origin. He had also reported 3-4 days of watery diarrhea and low grade fever. Stool was positive for C. diff toxin. He has been subsequently started on oral vancomycin. Clinically, he feels somewhat better. He is sitting at bedside eating breakfast. He does not report nausea or pain at this time. Nursing reports no overnight issues. PHYSICAL EXAMINATION: GENERAL: He is in no acute distress. VITAL SIGNS: Temperature 36.7, pulse 92, respirations 18, blood pressure 144/84. SKIN: Without rash or lesion. HEAD, EYES, EARS, NOSE, AND THROAT: Oral mucosa without erythema or ulceration. NECK: Supple without JVD or thyromegaly. LYMPH: No cervical or supraclavicular palpable nodes. HEART: Regular rate and rhythm. No clicks, rubs, murmurs or gallops. LUNGS: Bibasilar crackles bilaterally. ABDOMEN: Soft, nontender, nondistended. EXTREMITIES: No clubbing, cyanosis or edema. NEUROLOGIC: Grossly intact. LABORATORY DATA: Peripheral blood counts pending. Serum chemistries pending. IMPRESSION: 1. Clostridium difficile colitis. 2. Diarrhea. 3. Bibasilar pneumonia. 4. Neutropenic fever. 5. Mantle cell lymphoma. PLAN: is now on hospital day 2. Stool confirmed positive for Clostridium and was subsequently started on vancomycin. His peripheral blood counts seem to be improving and he no longer requires neutropenic precaution. Will trust medical team. Will carry out appropriate course of antibiotics as they head towards discharge. He is asymptomatic otherwise and reports 3 diarrheal stools overnight. Would continue IV hydration as ordered. I will make arrangements to have seen prior to his next cycle of chemotherapy. Thank you very much for allowing me to participate in his care.
[2016-09-15 09:05] LABS: HEMATOCRIT 29.6 % (42-52); MEAN CELL VOLUME 80.7 fL (80-100); MEAN CORPUSCULAR HEMOGLOBIN 26.4 pg (25-34); MEAN CORPUSCULAR HGB CONC 32.8 g/dl (32-36); MEAN PLATELET VOLUME 10.2 fL (7.4-10.4); PLATELET COUNT 202 K/uL (130-400); RED BLOOD COUNT 3.67 M/uL (4.7-6.1); WHITE BLOOD COUNT 13.51 K/uL (4.8-10.8)
[2016-09-15 09:06] LABS: BASO ABS # 0.12 K/uL (0-0.2); BASOPHIL % 0.9 % (0-2); COMPLETE YES; DOHLE BODIES 2+; EOSINOPHIL % 1.7 %; LYMPH ABS # 2.12 K/uL (1.2-3.4); LYMPHOCYTE % 15.7 %; META ABS # 0.12 K/uL (0-0); METAMYELOCYTE % 0.9 %; NEUTROPHILS % 75.6 %; TOXIC GRANULATION 2+
[2016-09-15 09:12] LABS: BUN/CREATININE RATIO 13.3 (10-20); CALCIUM 9.6 mg/dl (8.5-10.1); CREATININE 1.1 mg/dl (0.60-1.40); MAGNESIUM 1.3 mg/dl (1.8-2.4); POTASSIUM 5.4 mmol/L (3.5-5.1)
[2016-09-15 10:04] VITALS: O2SAT 93; O2SAT 96
--- NOTE | 2016-09-15 10:24 | DIAGNOSTIC IMAGING REPORT ---
CHEST 2 VIEWS ROUTINE HISTORY: Short of breath. COMPARISON: Chest 09/13/2016. FINDINGS: Left Port-A-Cath terminates in the SVC. No pneumothorax. No pleural effusions. The heart is stable in size. Left greater than right patchy mid to lower lung zone densities. This remains unchanged. IMPRESSION: No change in the bilateral mid to lower lung zone patchy airspace opacities. This likely represents a pneumonia. Recommend follow-up to resolution. Electronically signed by: Handy Mims M.D. 09/15/2016 10:22 AM Dictated Date/Time: 09/15/2016 10:21 AM
[2016-09-15] MEDS: MAGNESIUM SULFATE 1GM / D5W 1 GM in PREMIXED IN D5W 100 ML IV SCH ×2 (11:37→12:47)
[2016-09-15] MEDS: COLESTIPOL HCL 5 GM POWDER PACK PO SCH ×2 (11:37→22:27)
[2016-09-15] MEDS: BOOST VANILLA PO SCH ×4 (11:38→21:27)
[2016-09-15 14:50] VITALS: BP 142/80; PULSE 79; TEMP 36.6; O2SAT 95
[2016-09-15] MEDS ORDERED: MOMETASONE FUROATE-FORMOTEROL (DULERA) 200mcg/5mcg per inh INH PRN (17:45)
[2016-09-15] MEDS: ENOXAPARIN 40 MG/0.4 ML SYR SQ SCH (21:28)
[2016-09-16] VITALS: BP 128/74; PULSE 111; TEMP 37.2; O2SAT 95; O2SAT 96
[2016-09-16] MEDS: CEFEPIME IV 2000 MG in DEXTROSE 5% 100ML IV SCH (02:27)
[2016-09-16] MEDS: SODIUM CHLORIDE 0.45% 1000ML 1,000 ML IV SCH (05:30)
[2016-09-16 07:52] VITALS: BP 128/76; PULSE 92; TEMP 37.2; O2SAT 94
[2016-09-16 08:06] VITALS: O2SAT 94
[2016-09-16] MEDS: BOOST VANILLA PO SCH ×2 (09:05)
[2016-09-16] MEDS: FERROUS SULFATE 325 MG TAB PO SCH (09:07)
[2016-09-16] MEDS: METOPROLOL TARTRATE 25 MG TAB PO SCH (09:07)
[2016-09-16] MEDS: SIMVASTATIN 20 MG TAB PO SCH (09:07)
[2016-09-16] MEDS: ASCORBIC ACID 500 MG TAB PO SCH (09:07)
[2016-09-16] MEDS: PANTOprazole SOD 40 MG TAB PO SCH (09:07)
[2016-09-16] MEDS: ASPIRIN 81 MG ECTAB PO SCH (09:07)
[2016-09-16] MEDS: NYSTATIN SUSP 500,000 U/5 ML UDC PO SCH (09:08)
[2016-09-16] MEDS: SACCHAROMYCES BOUL (FLORASTOR) 250 MG CAP PO SCH (09:08)
[2016-09-16] MEDS: COLESTIPOL HCL 5 GM POWDER PACK PO SCH (09:08)
[2016-09-16] MEDS: RASPBERRY SYRUP 5 ML UDP PO SCH (09:08)
[2016-09-16] MEDS: VANCOMYCIN HCL 125 MG/2.5ML SOLN PO SCH (09:17)
[2016-09-16 09:49] LABS: HEMATOCRIT 28.4 % (42-52); MEAN CELL VOLUME 78.7 fL (80-100); MEAN CORPUSCULAR HEMOGLOBIN 26.3 pg (25-34); MEAN CORPUSCULAR HGB CONC 33.5 g/dl (32-36); MEAN PLATELET VOLUME 10.3 fL (7.4-10.4); PLATELET COUNT 229 K/uL (130-400); RED BLOOD COUNT 3.61 M/uL (4.7-6.1); WHITE BLOOD COUNT 24.65 K/uL (4.8-10.8)
[2016-09-16 09:57] LABS: CREATININE 1.3 mg/dl (0.60-1.40)
[2016-09-16] MEDS ORDERED: NYSS5 PO (10:36)
[2016-09-16] MEDS ORDERED: SULF800T23 PO (10:36)
[2016-09-16] MEDS ORDERED: VNCS125 PO (10:36)
[2016-09-16 10:58] VITALS: BP 128/76; PULSE 92; TEMP 37.2; O2SAT 94
--- NOTE | 2016-09-16 15:58 | Discharge Summary ---
Discharge Summary Date of Service Sep 16, 2016. Discharge Summary Admission Date: Sep 13, 2016 at 15:53 Discharge Date: Sep 16, 2016 Discharge Disposition: Home Principal Diagnosis: C diff colitis, gram negative pneumonia, neutropenic fever Medication Reconciliation New Medications: Sulfamethoxazole-Trimethoprim (Bactrim Ds 800MG/160MG) 1 Tab Tab 1 TAB PO BID for 7 Days, #10 TAB Nystatin (Nystatin) 5 Ml Susp 10 ML PO QID, #240 ML Vancomycin HCl (Vancomycin HCl) 125 Mg/2.5 Ml Susp 125 MG PO QID, #44 DOSE may substitute oral form or pills if able to supply Continued Medications: Ascorbic Acid (Vitamin C) 500 Mg Tab 1 TAB PO QAM Aspirin (Aspirin 81) 81 Mg Tab 1 TAB PO QAM Ferrous Sulfate (Kp Ferrous Sulfate) 325 Mg Tab 1 TAB PO QAM for 30 Days, #30 TAB 3 Refills Folic Acid (Folvite) 1 Mg Tab 1 TAB PO DAILY for 90 Days, #90 TAB 1 Refill Hydrochlorothiazide (Hctz) 25 Mg Tab 1 TAB PO DAILY for 30 Days, #30 TAB 5 Refills Metoprolol Tartrate (Lopressor) (Lopressor) 25 Mg Tab 12.5 MG PO QAM, TAB Mometasone Furoate-Formoterol (Dulera 100/5 Mcg) 1 Aer Aer 2 PUFFS INH BID PRN for SOB/Wheezing, GM Omeprazole (Prilosec) 20 Mg Cap 20 MG PO QAM Simvastatin (Zocor) 20 Mg Tab 20 MG PO QAM, TAB Discontinued Medications: Lisinopril (Prinivil) 20 Mg Tab 1 TAB PO DAILY for 30 Days, #30 TAB 5 Refills Hospital Course 70 M with fever and neutropenia after treatment for mantle cell lymphoma, found to have C Diff C diff started vancomycin po 09/14, complete 2 weeks and encourage probiotics small infiltrate on CXR initially treated for pneumonia while neutropenic, repeat cxr 09/15 shows it persists will have on bactrim after d/c . Mild dehydration. resolved oral Thrush, candidal stomatitis Nystatin swish and swallow will continue Hypertension. metoprolol Total Time Spent: Greater than 30 minutes This includes examination of the patient, discharge planning, medication reconciliation, and communication with other providers. Discharge Instructions Please refer to the electronic Patient Visit Report (Discharge Instructions) for additional information.
[2016-12-04] MEDS ORDERED: ASCO500T3 PO (09:39)
[2016-12-04] MEDS ORDERED: METO25TA56 PO (13:52)
[2016-12-04] MEDS ORDERED: SIMV20TA2 PO (13:52)
[2016-12-04] MEDS ORDERED: HYDR25TA4 PO (13:56)
[2016-12-04] MEDS ORDERED: FOLI1TAB7 PO (13:56)
[2016-12-04] MEDS ORDERED: OMEP20CA9 PO (15:12)
[2016-12-09] MEDS ORDERED: DOXY-300 PO (08:02)
[2016-12-09] MEDS ORDERED: OMEP20CA9 PO (16:36)
== END 2016-09-16 13:00 | disposition home health service (06) | DRG 178 ==
LOC: ENRESERVDT → ENRESERVTM → C.EDB 13:11 → C.MS2W 15:53 → UNDOADMIN 15:53
PROVIDERS: ADMIT Family Medicine; ATTEND Internal Medicine
DX: J15.6 Pneumonia due to other Gram-negative bacteria (principal); B37.0 Candidal stomatitis; A04.7 Enterocolitis due to Clostridium difficile; C83.10 Mantle cell lymphoma, unspecified site; C85.90 Non-Hodgkin lymphoma, unspecified, unspecified site; B37.9 Candidiasis, unspecified; D70.9 Neutropenia, unspecified; E86.0 Dehydration; I10 Essential (primary) hypertension; K21.9 Gastro-esophageal reflux disease without esophagitis; E78.5 Hyperlipidemia, unspecified; R00.0 Tachycardia, unspecified; Z79.82 Long term (current) use of aspirin; Z87.891 Personal history of nicotine dependence; Z85.46 Personal history of malignant neoplasm of prostate

== ENCOUNTER 2016-12-04 18:25 | Inpatient (IN) | payer OTHER ==
[~2016-12-04] VITALS: Ht 170.2 cm; Wt 55.6 kg
[~2016-12-04 18:25] MED LIST changes: -ALBU0.5N2 INH; +ASCO500T3 PO; -FLV1 PO; +FOLI1TAB7 PO; -HYDC25 PO; -HYDR-5688 PO; +HYDR25TA4 PO; -LISI40TA PO; +METO25TA56 PO; +NYSS5 PO; +OMEP20CA9 PO; +SIMV20TA2 PO; +VNCS125 PO
[2016-12-04] MEDS ORDERED: ACETAMINOPHEN 500 MG TAB PO STA (18:35)
[2016-12-04] MEDS ORDERED: SODIUM CHLORIDE 0.9% 1000ML 1,000 ML IV ONE (18:35)
[2016-12-04] MEDS ORDERED: ALBUT/IPRATROP 3MG/0.5MG NEB 3 ML VIAL INH STA (18:36)
--- NOTE | 2016-12-04 18:42 | EMERGENCY ROOM VISIT NOTE ---
History Report prepared by Juliette: Rony Kim Under the Supervision of: Dr. Fausto Morgan D.O. First contact with patient: 18:32 Chief Complaint: FLU LIKE SX Stated Complaint: COLD CHILLS, NO APPETITE,BLADDER CONTROL History of Present Illness The patient is a 71 year old male who presents to the Emergency Room with complaints of persistent cold-like symptoms that started today. The patient had his last chemotherapy treatment for lymphoma 6 days ago. Today, he presented to the [facility] because he wasn't feeling well. He complains of fever, shortness of breath, slightly productive cough, and some chest pain. The patient recently received Neupogen. Source of History: patient Onset: today Position: other (global) Timing: other (persistent) Associated Symptoms: + SOB, + chest pain (some), + cough (slightly productive), + fevers Review of Systems See HPI for pertinent positives & negatives. A total of 10 systems reviewed and were otherwise negative. Past Medical & Surgical Medical Problems: (1) Neutropenic fever (2) Pneumonia (3) Prostate cancer (4) Sepsis Family History Patient reports no known family medical history. Social History Smoking Status: Former Smoker Marital Status: Housing Status: lives with significant other Occupation Status: retired Current/Historical Medications Scheduled Ascorbic Acid (Vitamin C), 500 MG PO QAM Aspirin (Aspirin Ec), 81 MG PO QAM Enteral Nutrition Formula (Ensure Plus Vanilla), 1 CAN PO BID Ferrous Sulfate (Ferrous Sulfate), 325 MG PO QAM Folic Acid (Folvite), 1 MG PO QAM Hydrochlorothiazide (Hctz), 25 MG PO QAM Lisinopril (Zestril), 20 MG PO QAM Metoprolol Tartrate (Lopressor) (Lopressor), 25 MG PO BID Omeprazole (Prilosec), 20 MG PO QAM Simvastatin (Zocor), 20 MG PO QAM Scheduled PRN Mometasone Furoate-Formoterol (Dulera 200/5 Mcg), 2 PUFFS INH BID PRN for SOB/ Wheezing Nitroglycerin (Nitrostat), 0.4 MG UT UD PRN for Chest Pain Allergies Coded Allergies: Penicillins (Verified Allergy, Mild, RASH, 09/13/16) Levofloxacin (Verified Adverse Reaction, Mild, VOMITTING, 09/13/16) Physical Exam Vital Signs Date Time Temp Pulse Resp B/P Pulse Ox O2 Delivery O2 Flow Rate FiO2 12/04/16 20:09 37.4 125 19 120/60 95 Nasal Cannula 3.0 12/04/16 20:07 127 12/04/16 18:49 84 Room Air 12/04/16 18:28 38.6 138 18 118/64 85 Room Air Physical Exam GENERAL: Patient is awake, alert, very anxious appearing. EYES: The conjunctivae are clear. The pupils are round and reactive. EARS, NOSE, MOUTH AND THROAT: The nose is without any evidence of any deformity. Mucous membranes are dry tongue is coated. NECK: The neck is nontender and supple. RESPIRATORY: Lung sounds are diminished and near absent in the left lung field, there was scattered rhonchi noted in right lung field, significant conversational dyspnea noted. CARDIOVASCULAR: Tachycardic but regular, no definite murmur noted to oscillation. GASTROINTESTINAL: The abdomen is soft. Bowel sounds are present in all quadrants. Abdomen is nontender MUSCULOSKELETAL/EXTREMITIES: There is no evidence of gross deformity full range of motion is noted in the hips and shoulders SKIN: There is no obvious evidence of any rash. There are no petechiae, pallor or cyanosis noted. NEUROLOGIC: Patient is awake alert and oriented x3 strength is symmetric patellar reflexes are 2+ bilaterally Medical Decision & Procedures ER Provider Diagnostic Interpretation: X-ray results as stated below per interpretation by me and the radiologist. SINGLE VIEW CHEST CLINICAL HISTORY: Sepsis. FINDINGS: An AP, portable, upright chest radiograph is compared to study dated 09/15/2016. Correlation is made with PET CT dated 07/19/2016. The examination is degraded by portable technique, apical lordotic positioning, and patient rotation. A left subclavian central venous infusion port is unchanged in position. The heart is enlarged and there is atherosclerotic calcification of the thoracic aorta. The pulmonary vasculature is noncongested. Advanced emphysema and chronic interstitial thickening are similar to previous. Patchy airspace consolidation is seen at both lung bases, left greater than right. A trace left pleural effusion is suspected. No pneumothorax is seen. The skeletal structures are osteopenic. The bony thorax is grossly intact. IMPRESSION: 1. Cardiomegaly and emphysema. 2. There is patchy airspace consolidation seen at both lung bases, left greater than right. This likely represents an infectious/inflammatory pneumonitis. Radiographic follow-up to resolution is recommended. 3. Suspect a trace left pleural effusion. Electronically signed by: Vipul Mariee M.D. 12/04/2016 7:11 PM Dictated Date/Time: 12/04/2016 7:08 PM Laboratory Results 12/04/16 19:24 Red Blood Count 4.66, Mean Corpuscular Volume 91.0, Mean Corpuscular Hemoglobin 29.6, Mean Corpuscular Hemoglobin Concent 32.5 12/04/16 19:24 Test 12/04/16 19:06 12/04/16 19:24 12/04/16 19:51 Bedside Lactic Acid Venous 0.86 mmol/L (0.90-1.70) White Blood Count 0.27 K/uL (4.8-10.8) Red Blood Count 4.66 M/uL (4.7-6.1) Hemoglobin 13.8 g/dL (14.0-18.0) Hematocrit 42.4 % (42-52) Mean Corpuscular Volume 91.0 fL (80-100) Mean Corpuscular Hemoglobin 29.6 pg (25-34) Mean Corpuscular Hemoglobin Concent 32.5 g/dl (32-36) Platelet Count 38 K/uL (130-400) RDW Standard Deviation 52.5 fL (36.4-46.3) RDW Coefficient of Variation 15.7 % (11.5-14.5) Neutrophils % (Manual) 22.0 % Lymphocytes % (Manual) 60.0 % Monocytes % (Manual) 11.0 % Eosinophils % (Manual) 6.0 % Basophils % (Manual) 1.0 % (0-2) Neutrophils # (Manual) 0.06 K/uL (1.4-6.5) Total Absolute Neutrophils 0.06 K/uL (1.4-6.5) Lymphocytes # (Manual) 0.16 K/uL (1.2-3.4) Total Absolute Lymphocytes 0.16 K/uL (1.2-3.4) Monocytes # (Manual) 0.03 K/uL (0.11-0.59) Eosinophils # (Manual) 0.02 K/uL (0-0.5) Basophils # (Manual) 0.00 K/uL (0-0.2) Giant Platelets 2+ Red Blood Cell Morphology Unremarkable Erythrocyte Sedimentation Rate 59 mm/hr (0-14) Prothrombin Time 10.7 SECONDS (9.0-12.0) Prothromb Time International Ratio 1.0 (0.9-1.1) Activated Partial Thromboplast Time 42.7 SECONDS (21.0-31.0) Partial Thromboplastin Ratio 1.6 Anion Gap 5.0 mmol/L (3-11) Est Creatinine Clear Calc Drug Dose 40.2 ml/min Estimated GFR () 62.7 Estimated GFR (Non- 54.1 BUN/Creatinine Ratio 25.2 (10-20) Calcium Level 8.5 mg/dl (8.5-10.1) Phosphorus Level 2.4 mg/dl (2.5-4.9) Magnesium Level 1.4 mg/dl (1.8-2.4) Total Bilirubin 0.4 mg/dl (0.2-1) Aspartate Amino Transf (AST/SGOT) 19 U/L (15-37) Alanine Aminotransferase (ALT/SGPT) 20 U/L (12-78) Alkaline Phosphatase 85 U/L (45-117) Total Creatine Kinase 24 U/L (39-308) Creatine Kinase MB < 0.5 ng/ml (0.5-3.6) Creatine Kinase MB Ratio (0-3.0) C-Reactive Protein 12.90 mg/dl (0-0.29) Pro-B-Type Natriuretic Peptide 924 pg/ml (0-900) Total Protein 6.3 gm/dl (6.4-8.2) Albumin 2.8 gm/dl (3.4-5.0) Globulin 3.5 gm/dl (2.5-4.0) Albumin/Globulin Ratio 0.8 (0.9-2) Lipase 59 U/L (73-393) Venous Blood pH 7.42 (7.36-7.41) Venous Blood Partial Pressure CO2 46 mmHg (38.0-50.0) Venous Blood Partial Pressure O2 23 mmHg Venous Blood HCO3 29 mmol/L Venous Blood Oxygen Saturation < 60.0 % Venous Blood Base Excess 4.2 mmol/L Laboratory results per my review. Medications Administered Medications (Trade) Dose Ordered Sig/Sigrid Route Start Time Stop Time Status Last Admin Dose Admin Sodium Chloride (Nss 1000ml) 1,000 ml @ 999 mls/hr Q1H1M ONCE IV 12/04/16 18:35 12/04/16 19:35 DC 12/04/16 18:35 999 MLS/HR Acetaminophen (Tylenol Tab) 1,000 mg NOW STAT PO 12/04/16 18:35 12/04/16 18:37 DC 12/04/16 19:35 1,000 MG Albuterol/ Ipratropium 3 ml 3 ml NOW STAT INH 12/04/16 18:36 12/04/16 18:37 DC 12/04/16 18:36 3 ML Cefepime HCl/ Dextrose (Maxipime IV/D5 100ml) 122.6 ml @ 200 mls/hr NOW STAT IV 12/04/16 19:20 12/04/16 19:56 DC 12/04/16 20:06 200 MLS/HR Magnesium Sulfate 1 gm 1 gm NOW STAT IV 12/04/16 19:59 12/04/16 20:00 DC 12/04/16 20:45 1 GM Sodium Chloride (Nss 1000ml) 1,000 ml @ 999 mls/hr Q1H1M STAT IV 12/04/16 20:28 12/04/16 21:28 DC 12/04/16 20:28 999 MLS/HR ECG Indication: other Rate (beats per minute): 128 Rhythm: sinus tachycardia Findings: no acute ischemic change, other (no acute ST segment abnormality) Comparison ECG Date: increased rate otherwise no change when compared to EKG from September 13, 2016 ED Course 1828: The patient was evaluated in room B5. A complete history and physical examination were performed. 1834: Ordered Tylenol Tab 1000 mg PO, NSS 1000 ml @ 999 mls/hr IV, Duoneb 3 ml INH. 1919: Ordered Cefepime HCl 2000 mg/ Dextrose 122.6 ml @ 2000 mls/hr IV. 1934: At this time, I reevaluated the patient and he was starting to feel a little better. 1949: At this time, I discussed the patient's case with Dr. Escalona / Dr. Sal - Hospitalist [facility] [place] and he agreed to accept the patient for further evaluation. 1958: Ordered Magnesium Sulfate 1 gm IV. 2027: Ordered NSS 1000 ml @ 999 mls/hr IV. Medical Decision Differential diagnosis: Etiologies such as viral syndrome, otitis, pharyngitis, pneumonia, influenza, meningitis, urinary tract infection, sepsis, bacteremia, as well as others were entertained. Nursing notes reviewed. The patient is a 71-year-old male who has a history of cancer who presented to the emergency department for evaluation of fever and difficulty breathing. The patient was found have tachycardia as well as hypoxia. Chest x-ray did reveal signs of pneumonia. The patient was treated with IV fluids and IV antibiotic. I discussed his case with the on-call [facility] hospitalist group. They have agreed to evaluate the patient in the emergency department for further management and disposition. The patient was found have some degree of neutropenia as well. I discussed the patient's laboratory and radiographic studies with him. Consults Time Called: 1944 Consulting Phys[facility]: [facility] At this time, I discussed the patient's case with Dr. Escalona / Dr. Sal and he agreed to accept the patient for further evaluation. Impression Primary Impression: Pneumonia Additional Impressions: Hypoxia Tachycardia Hypomagnesemia Neutropenic fever Scribe Attestation The scribe's documentation has been prepared under my direction and personally reviewed by me in its entirety. I confirm that the note above accurately reflects all work, treatment, procedures, and medical decision making performed by me. Departure Information Dispostion Being Evaluated By Hospitalist Referrals Maurizio Aceves D.O. (PCP) Problem Qualifiers
--- NOTE | 2016-12-04 19:13 | DIAGNOSTIC IMAGING REPORT ---
SINGLE VIEW CHEST CLINICAL HISTORY: Sepsis. FINDINGS: An AP, portable, upright chest radiograph is compared to study dated 09/15/2016. Correlation is made with PET CT dated 07/19/2016. The examination is degraded by portable technique, apical lordotic positioning, and patient rotation. A left subclavian central venous infusion port is unchanged in position. The heart is enlarged and there is atherosclerotic calcification of the thoracic aorta. The pulmonary vasculature is noncongested. Advanced emphysema and chronic interstitial thickening are similar to previous. Patchy airspace consolidation is seen at both lung bases, left greater than right. A trace left pleural effusion is suspected. No pneumothorax is seen. The skeletal structures are osteopenic. The bony thorax is grossly intact. IMPRESSION: 1. Cardiomegaly and emphysema. 2. There is patchy airspace consolidation seen at both lung bases, left greater than right. This likely represents an infectious/inflammatory pneumonitis. Radiographic follow-up to resolution is recommended. 3. Suspect a trace left pleural effusion. Electronically signed by: Vipul Mariee M.D. 12/04/2016 7:11 PM Dictated Date/Time: 12/04/2016 7:08 PM
[2016-12-04] MEDS ORDERED: CEFEPIME IV 2,000 MG in DEXTROSE 5% 100ML 100 ML IV STA (19:20)
[2016-12-04] MEDS ORDERED: FERR325T5 PO (19:38)
[2016-12-04] MEDS ORDERED: NTRGSL/4 UT (19:38)
[2016-12-04] MEDS ORDERED: LISI-725 PO (19:38)
[2016-12-04] MEDS ORDERED: MOME200A INH (19:38)
[2016-12-04] MEDS ORDERED: NUTR-977 PO (19:38)
[2016-12-04] MEDS ORDERED: ASPI81TA28 PO (19:38)
[2016-12-04 19:49] LABS: PARTIAL THROMBOPLASTIN RATIO 1.6; PROTHROMBIN TIME (PATIENT) 10.7 SECONDS (9.0-12.0)
[2016-12-04 19:57] LABS: ALT/SGPT 20 U/L (12-78); AST/SGOT 19 U/L (15-37); BLOOD UREA NITROGEN 33 mg/dl (7-18); BUN/CREATININE RATIO 25.2 (10-20); CALCIUM 8.5 mg/dl (8.5-10.1); CARBON DIOXIDE 32 mmol/L (21-32); CHLORIDE 102 mmol/L (98-107); GLUCOSE 125 mg/dl (70-99); MAGNESIUM 1.4 mg/dl (1.8-2.4); POTASSIUM 4.3 mmol/L (3.5-5.1); SODIUM 139 mmol/L (136-145)
[2016-12-04] MEDS ORDERED: MAGNESIUM SULFATE 1GM / D5W 1 GM BAG IV STA (19:59)
[2016-12-04 20:15] LABS: HEMATOCRIT 42.4 % (42-52); MEAN CORPUSCULAR HEMOGLOBIN 29.6 pg (25-34); MEAN CORPUSCULAR HGB CONC 32.5 g/dl (32-36); RED BLOOD COUNT 4.66 M/uL (4.7-6.1); WHITE BLOOD COUNT 0.27 K/uL (4.8-10.8)
[2016-12-04] MEDS ORDERED: SODIUM CHLORIDE 0.9% 1000ML 1,000 ML IV STA (20:28)
[2016-12-04 20:40] LABS: VEN BLOOD GAS BASE EXCESS 4.2 mmol/L; VENOUS BLOOD GAS PCO2 46 mmHg (38.0-50.0); VENOUS BLOOD GAS PO2 23 mmHg
[2016-12-04 20:41] LABS: VEN BLD GAS O2 SATURATION < 60.0 %
[2016-12-04 20:45] LABS: ALB/GLOB RATIO 0.8 (0.9-2); ALKALINE PHOSPHATASE 85 U/L (45-117); PHOSPHORUS 2.4 mg/dl (2.5-4.9)
[2016-12-04] MEDS ORDERED: ONDANSETRON INJ 2 MG/ML 2 ML VIAL IV PRN (20:45)
[2016-12-04] MEDS ORDERED: [UNRECOGNIZED DRUG - OTHER] PRN (20:45)
[2016-12-04 20:52] LABS: PLATELET COUNT 38 K/uL (130-400)
[2016-12-04 20:58] LABS: COMPLETE YES; GIANT PLATELETS 2+; LYMPH ABS # 0.16 K/uL (1.2-3.4)
[2016-12-04] MEDS ORDERED: NYSTATIN SUSP 500,000 U/5 ML UDC PO ONE (21:52)
[2016-12-04] MEDS ORDERED: ALBUT/IPRATROP 3MG/0.5MG NEB 3 ML VIAL INH ONE (21:54)
[2016-12-04 21:57] VITALS: BP 113/67; PULSE 118; TEMP 36.9; O2SAT 96; Ht 170.2 cm; Wt 55.6 kg
[2016-12-04] MEDS ORDERED: NITROGLYCERIN 0.4 MG SL PER TAB CHARGE UT PRN (22:00)
[2016-12-04 22:03] LABS: URINE APPEARANCE CLEAR (CLEAR); URINE BILIRUBIN NEG (NEG); URINE COLOR YELLOW; URINE NITRITE NEG (NEG); URINE SPECIFIC GRAVITY 1.016 (1.000-1.030); UROBILINOGEN NEG (NEG); ZZUR CULT IF INDIC CLEAN CATCH NO
[2016-12-04 22:07] LABS: MANUAL MICROSCOPIC REQUIRED? NO; REVIEW REQ? NO
--- NOTE | 2016-12-04 22:14 | History and Physical ---
History & Physical Date & Time of Service: December 04, 2016 at 21:44 Chief Complaint: Cold Chills, No Appetite,Bladder Control Primary Care Physician: Maurizio Aceves D.O. History of Present Illness Source: patient, hospital records Mr Pink is a 71 year old male on chemotherapy since June for NHL with recent Hx of c.diff colitis. Presents to the ER brought in by his with fever, shortness of breath and productive cough for the past 3 days. In the ER he had a chest XR consistent with pneumonia and is neutropenic on labs. He is tachycardic and hypoxic on room air with frequent cough. His troponin is elevated. He does mention he has chest pain but this comes on each time he gets G-CSF and he gets overall bone pain. No pain in the last 24 hours. It is not worse on exertion. Past Medical/Surgical History Medical Problems: (1) Prostate cancer Permanent Comment: Rise in PSA to 5.6 clinical stage TIC Status post biopsies biopsy stage T2b [place] grade 3+3 Status: Resolved (2) Non Hodgkin's lymphoma (3) COPD Family History Patient reports no known family medical history. Social History Smoking Status: Former Smoker Marital Status: Housing status: lives with family Occupational Status: retired Allergies Coded Allergies: Penicillins (Verified Allergy, Mild, RASH, 12/06/16) tolerate cefepime 11/2016 admission Levofloxacin (Verified Adverse Reaction, Mild, VOMITTING, 09/13/16) Home Medications Scheduled Ascorbic Acid (Vitamin C), 500 MG PO QAM Aspirin (Aspirin Ec), 81 MG PO QAM Enteral Nutrition Formula (Ensure Plus Vanilla), 1 CAN PO BID Ferrous Sulfate (Ferrous Sulfate), 325 MG PO QAM Folic Acid (Folvite), 1 MG PO QAM Hydrochlorothiazide (Hctz), 25 MG PO QAM Lisinopril (Zestril), 20 MG PO QAM Metoprolol Tartrate (Lopressor) (Lopressor), 25 MG PO BID Omeprazole (Prilosec), 20 MG PO QAM Simvastatin (Zocor), 20 MG PO QAM Scheduled PRN Mometasone Furoate-Formoterol (Dulera 200/5 Mcg), 2 PUFFS INH BID PRN for SOB/ Wheezing Nitroglycerin (Nitrostat), 0.4 MG UT UD PRN for Chest Pain Review of Systems Constitutional: + chills, + fever Eyes: No worsening of vision ENT: No hearing loss Respiratory: + cough, + dyspnea on exertion, + shortness of breath, + sputum, No dyspnea at rest, No wheezing Cardiovascular: + chest pain (see HPI comes on with overal body aches), No PND , No claudication, No edema, No orthopnea Abdomen: No GI bleeding, No constipation, No diarrhea, No nausea, No pain, No vomiting Musculoskeletal: No calf pain, No joint pain, No muscle pain, No swelling Genitourinary - Male: No dysuria, No hematuria, No urinary frequency, No urinary urgency Neurologic: No numbness/tingling, No weakness Endocrine: No excessive thirst, No excessive urination, No fatigue Hematologic / Lymphatic: No abnormal bleeding/bruising Integumentary: No itch, No rash Physical Exam Vital Signs Date Time Temp Pulse Resp B/P Pulse Ox O2 Delivery O2 Flow Rate FiO2 12/04/16 20:09 37.4 125 19 120/60 95 Nasal Cannula 3.0 12/04/16 20:07 127 12/04/16 18:49 84 Room Air 12/04/16 18:28 38.6 138 18 118/64 85 Room Air General Appearance: WD/WN, no apparent distress Head: normocephalic, atraumatic Eyes: PERRL, EOMI Neck: supple, trachea midline Respiratory/Chest: chest non-tender, + crackles (posteriorly to basal mid zone bilaterally coarse crackles) Cardiovascular: no edema, no murmur, normal peripheral pulses, + tachycardia Abdomen/GI: normal bowel sounds, non tender, soft Back: no CVA tenderness Extremities/Musculoskelatal: no calf tenderness, normal capillary refill, no pedal edema Neurologic/Psych: shot man II-XII nml as tested, no motor/sensory deficits, alert, normal mood/affect, oriented x 3 Skin: normal color, warm/dry, no rash Diagnostics Laboratory Results Results Past 24 Hours Test 12/04/16 19:06 12/04/16 19:24 12/04/16 19:51 Range/Units Bedside Lactic Acid Venous 0.86 0.90-1.70 mmol/L White Blood Count 0.27 4.8-10.8 K/uL Red Blood Count 4.66 4.7-6.1 M/uL Hemoglobin 13.8 14.0-18.0 g/dL Hematocrit 42.4 42-52 % Mean Corpuscular Volume 91.0 80-100 fL Mean Corpuscular Hemoglobin 29.6 25-34 pg Mean Corpuscular Hemoglobin Concent 32.5 32-36 g/dl Platelet Count 38 130-400 K/uL RDW Standard Deviation 52.5 36.4-46.3 fL RDW Coefficient of Variation 15.7 11.5-14.5 % Neutrophils % (Manual) 22.0 % Lymphocytes % (Manual) 60.0 % Monocytes % (Manual) 11.0 % Eosinophils % (Manual) 6.0 % Basophils % (Manual) 1.0 0-2 % Neutrophils # (Manual) 0.06 1.4-6.5 K/uL Total Absolute Neutrophils 0.06 1.4-6.5 K/uL Lymphocytes # (Manual) 0.16 1.2-3.4 K/uL Total Absolute Lymphocytes 0.16 1.2-3.4 K/uL Monocytes # (Manual) 0.03 0.11-0.59 K/uL Eosinophils # (Manual) 0.02 0-0.5 K/uL Basophils # (Manual) 0.00 0-0.2 K/uL Giant Platelets 2+ Red Blood Cell Morphology Unremarkable Erythrocyte Sedimentation Rate 59 0-14 mm/hr Prothrombin Time 10.7 9.0-12.0 SECONDS Prothromb Time International Ratio 1.0 0.9-1.1 Activated Partial Thromboplast Time 42.7 21.0-31.0 SECONDS Partial Thromboplastin Ratio 1.6 Sodium Level 139 136-145 mmol/L Potassium Level 4.3 3.5-5.1 mmol/L Chloride Level 102 98-107 mmol/L Carbon Dioxide Level 32 21-32 mmol/L Anion Gap 5.0 3-11 mmol/L Blood Urea Nitrogen 33 7-18 mg/dl Creatinine 1.30 0.60-1.40 mg/dl Est Creatinine Clear Calc Drug Dose 40.2 ml/min Estimated GFR () 62.7 Estimated GFR (Non- 54.1 BUN/Creatinine Ratio 25.2 10-20 Random Glucose 125 70-99 mg/dl Calcium Level 8.5 8.5-10.1 mg/dl Phosphorus Level 2.4 2.5-4.9 mg/dl Magnesium Level 1.4 1.8-2.4 mg/dl Total Bilirubin 0.4 0.2-1 mg/dl Aspartate Amino Transf (AST/SGOT) 19 15-37 U/L Alanine Aminotransferase (ALT/SGPT) 20 12-78 U/L Alkaline Phosphatase 85 45-117 U/L Total Creatine Kinase 24 39-308 U/L Creatine Kinase MB < 0.5 0.5-3.6 ng/ml Creatine Kinase MB Ratio 0-3.0 Troponin I 0.292 0-0.045 ng/ml C-Reactive Protein 12.90 0-0.29 mg/dl Pro-B-Type Natriuretic Peptide 924 0-900 pg/ml Total Protein 6.3 6.4-8.2 gm/dl Albumin 2.8 3.4-5.0 gm/dl Globulin 3.5 2.5-4.0 gm/dl Albumin/Globulin Ratio 0.8 0.9-2 Lipase 59 73-393 U/L Venous Blood pH 7.42 7.36-7.41 Venous Blood Partial Pressure CO2 46 38.0-50.0 mmHg Venous Blood Partial Pressure O2 23 mmHg Venous Blood HCO3 29 mmol/L Venous Blood Oxygen Saturation < 60.0 % Venous Blood Base Excess 4.2 mmol/L Microbiology Results 12/04/16 Blood Culture, Received Pending 12/04/16 Blood Culture, Received Pending Diagnostic Radiology SINGLE VIEW CHEST CLINICAL HISTORY: Sepsis. FINDINGS: An AP, portable, upright chest radiograph is compared to study dated 09/15/2016. Correlation is made with PET CT dated 07/19/2016. The examination is degraded by portable technique, apical lordotic positioning, and patient rotation. A left subclavian central venous infusion port is unchanged in position. The heart is enlarged and there is atherosclerotic calcification of the thoracic aorta. The pulmonary vasculature is noncongested. Advanced emphysema and chronic interstitial thickening are similar to previous. Patchy airspace consolidation is seen at both lung bases, left greater than right. A trace left pleural effusion is suspected. No pneumothorax is seen. The skeletal structures are osteopenic. The bony thorax is grossly intact. IMPRESSION: 1. Cardiomegaly and emphysema. 2. There is patchy airspace consolidation seen at both lung bases, left greater than right. This likely represents an infectious/inflammatory pneumonitis. Radiographic follow-up to resolution is recommended. 3. Suspect a trace left pleural effusion. Electronically signed by: Vipul Mariee M.D. 12/04/2016 7:11 PM Dictated Date/Time: 12/04/2016 7:08 PM EKG No ischemic changes, sinus tachycardia Impression Assessment and Plan 71 year old male 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 Last received G-CSF on Sunday Neutropenic sepsis (source pneumonia) - neutropenia secondary to chemotherapy - repeat lactic acid at 22:30 - Continue IVF resuscitation due to ongoing tachycardia - Continue cefepime IV + add vancomycin for gram positive resistance coverage - MRSA nasal swab - Blood cultures - taken from left subclavian line and peripherally - UA + culture - Consult his oncologist Dr Aceves Pneumonia - antibiotics as above - flutter valve + incentive spirometry Thrombocytopenia - secondary to chemotherapy - chemotherapy induced COPD - not in exacerbation but has pneumonia - duonebs QID + Q2H PRN - hold off on steroids as no wheezing currently but may have to be started pending clinical course Oral thrush - nystatin swish and swallow 5ml QID Elevated troponin - in setting of tachycardia, no ischemic changes on EKG - serial troponin Hypertension - Cr at baseline and BP stable therefore will continue home meds (HCZT, lisinopril, metoprolol) VTE Prophylaxis - chemical contraindicated given thrombocytopenia - Hold off SCDs given limited benefit and not yet confirmed for no DVT in his legs Code - discussed at length with the patient and he decided he does not wish to be intubated and no resuscitation efforts. He reports previously informing his of these decisions who acts as POA if he doesn't have capacity. Disposition - admit to telemetry with neutropenic precautions. Level of Care Telemetry Advanced Directives Existing Advance Directive: Yes Existing Living Will: Yes Existing Power of Emery Wheel Worker: Yes () Resuscitation Status DO NOT RESUSCITATE VTE Prophylaxis VTE Risk Assessment Done? Y/N: Yes Risk Level: Moderate Given or contraindicated: Contraindicated (Thrombocytopenia) Additional Copies To Maurizio Aceves D.O. Resident Tracking Resident Involvement: Resident Care Provided Care Provided: Adult Hospital Medicine Assessment and Plan Attending Addendum: I have physically seen and examined this patient, have directed their medical care, have supervised the medical residents activities, and agree with the H&P as noted above, with the following changes: NONE
[2016-12-04] MEDS ORDERED: SODIUM CHLORIDE 0.9% 1000ML 1,000 ML IV SCH (22:15)
[2016-12-04] MEDS ORDERED: VANCOMYCIN INJ 1,450 MG in SODIUM CHLORIDE 0.9% 500ML 500 ML IV ONE (22:30)
[2016-12-04] MEDS ORDERED: VANCOMYCIN CONSULT ACTIVE PRN (22:30)
[2016-12-04 23:35] VITALS: BP 120/71; PULSE 132; TEMP 37.2; O2SAT 96
[2016-12-04 23:59] VITALS: O2SAT 96
[2016-12-05] VITALS (18 sets, daily range): BP systolic 106–129; BP diastolic 63–76; PULSE 92–120; TEMP 36.9–38.3; O2SAT 90–100
[2016-12-05] MEDS ORDERED: METOPROLOL TARTRATE 25 MG TAB PO STA (01:28)
[2016-12-05] MEDS ORDERED: OPTIRAY 320 IV PRN (01:30)
[2016-12-05] MEDS: SODIUM CHLORIDE 0.9% 1000ML 1,000 ML IV SCH ×3 (01:35→20:18)
[2016-12-05] MEDS: ACETAMINOPHEN 325 MG TAB PO PRN ×3 (01:40→23:50)
[2016-12-05] MEDS ORDERED: NURSING VERBAL MED ORDER ONE (03:00)
[2016-12-05] MEDS ORDERED: KETOROLAC TROMETHAMINE 15 MG/ML VIAL IV. STA (03:06)
[2016-12-05 06:03] LABS: PARTIAL THROMBOPLASTIN RATIO 1.5
[2016-12-05 06:37] LABS: BUN/CREATININE RATIO 23.5 (10-20); CALCIUM 7.9 mg/dl (8.5-10.1); CREATININE 1.2 mg/dl (0.60-1.40); MAGNESIUM 1.8 mg/dl (1.8-2.4); POTASSIUM 4.6 mmol/L (3.5-5.1)
[2016-12-05 06:53] LABS: HEMATOCRIT 23.5 % (42-52); MEAN CELL VOLUME 92.2 fL (80-100); MEAN CORPUSCULAR HEMOGLOBIN 30.6 pg (25-34); MEAN CORPUSCULAR HGB CONC 33.2 g/dl (32-36); MEAN PLATELET VOLUME 12.3 fL (7.4-10.4); PLATELET COUNT 63 K/uL (130-400); RED BLOOD COUNT 2.55 M/uL (4.7-6.1); WHITE BLOOD COUNT 0.32 K/uL (4.8-10.8)
[2016-12-05 07:03] LABS: BASO % 3.1 %; BASO ABS # 0.01 K/uL (0-0.2); COMPLETE YES; EOS % 18.8 %; LYMPH % 68.8 %; LYMPH ABS # 0.22 K/uL (1.2-3.4); MONO % 6.3 %
[2016-12-05] MEDS: ALBUT/IPRATROP 3MG/0.5MG NEB 3 ML VIAL INH SCH ×4 (07:06→19:45)
[2016-12-05 07:25] LABS: GIANT PLATELETS 1+; TEAR DROP CELLS 1+; TOXIC GRANULATION 1+
[2016-12-05 07:30] LABS: ALB/GLOB RATIO 0.7 (0.9-2)
[2016-12-05] MEDS: CEFEPIME IV SCH ×2 (08:27→20:18)
[2016-12-05] MEDS: DEXTROSE 5% IV SCH ×2 (08:27→20:18)
[2016-12-05] MEDS: NYSTATIN SUSP 500,000 U/5 ML UDC PO SCH ×4 (08:28→20:18)
[2016-12-05] MEDS: FERROUS SULFATE 325 MG TAB PO SCH (08:28)
[2016-12-05] MEDS: LISINOPRIL 20 MG TAB PO SCH (08:29)
[2016-12-05] MEDS: SIMVASTATIN 20 MG TAB PO SCH ×2 (08:29→20:18)
[2016-12-05] MEDS: PANTOprazole SOD 40 MG TAB PO SCH (08:29)
[2016-12-05] MEDS: ASCORBIC ACID 500 MG TAB PO SCH (08:29)
[2016-12-05] MEDS: METOPROLOL TARTRATE 25 MG TAB PO SCH ×2 (08:30→20:19)
[2016-12-05] MEDS: HYDROCHLOROTHIAZIDE 25 MG TAB PO SCH (08:30)
--- NOTE | 2016-12-05 08:41 | Oncology Consultation ---
Oncology/Heme Consultation Date of Consultation: December 05, 2016. Attending Physician: Nathanael Sal M.D. Reason for Consultation: Mantle cell lymphoma Neutropenic fever History of Present Illness Mr. Pink is a 71 year old gentleman who recently completed 6 cycles of R-CHOP for mantle cell lymphoma. His last cycle was 11/28 and he received Neulasta the following day. He reports having a poor appetite yesterday, along with subjective fevers and chills (he doesn't recall a temperature). He presented to the ER, where he was found to be neutropenic and febrile (T max 38.3). His only symptom is a modest cough intermittently productive of yellow sputum. He denies any dysuria, hematuria, diarrhea, abdominal pain, or rash. He is mildly nauseated, but that is typical for this point in his cycle. Past Medical/Surgical History Medical Problems: (1) Dehydration Status: Acute (2) Fever Status: Acute (3) Hypomagnesemia Status: Acute (4) Hypomagnesemia Status: Acute (5) Hypoxia Status: Acute (6) Lymphoma Status: Acute (7) Neutropenia Status: Acute (8) Pneumonia Status: Acute (9) Tachycardia Status: Acute Family History Patient reports no known family medical history. Social History Smoking Status: Former Smoker Marital Status: Housing Status: lives with significant other Occupation Status: retired Allergies Coded Allergies: Penicillins (Verified Allergy, Mild, RASH, 09/13/16) Levofloxacin (Verified Adverse Reaction, Mild, VOMITTING, 09/13/16) Home Medications Scheduled Ascorbic Acid (Vitamin C), 500 MG PO QAM Aspirin (Aspirin Ec), 81 MG PO QAM Enteral Nutrition Formula (Ensure Plus Vanilla), 1 CAN PO BID Ferrous Sulfate (Ferrous Sulfate), 325 MG PO QAM Folic Acid (Folvite), 1 MG PO QAM Hydrochlorothiazide (Hctz), 25 MG PO QAM Lisinopril (Zestril), 20 MG PO QAM Metoprolol Tartrate (Lopressor) (Lopressor), 25 MG PO BID Omeprazole (Prilosec), 20 MG PO QAM Simvastatin (Zocor), 20 MG PO QAM Scheduled PRN Mometasone Furoate-Formoterol (Dulera 200/5 Mcg), 2 PUFFS INH BID PRN for SOB/ Wheezing Nitroglycerin (Nitrostat), 0.4 MG UT UD PRN for Chest Pain Current Inpatient Medications Current Inpatient Medications Medications (Trade) Dose Ordered Sig/Sigrid Route Start Time Stop Time Status Last Admin Dose Admin Cefepime HCl/ Dextrose (Maxipime IV/D5 50ml) 62.5 ml @ 100 mls/hr Q12@0800,2000 IV 12/05/16 08:00 12/11/16 19:59 12/05/16 08:27 100 MLS/HR Miscellaneous Information (Pharmacy Consult) 1 ea UD PRN N/A 12/04/16 20:45 01/03/17 20:44 Acetaminophen (Tylenol Tab) 650 mg Q4H PRN PO 12/04/16 20:45 01/03/17 20:44 12/05/16 01:40 650 MG Ondansetron HCl (Zofran Inj) 4 mg Q6H PRN IV 12/04/16 20:45 01/03/17 20:44 Ascorbic Acid (Vitamin C Tab) 500 mg QAM PO 12/05/16 09:00 01/04/17 08:59 12/05/16 08:29 500 MG Ferrous Sulfate (Feosol Tab) 325 mg QAM PO 12/05/16 09:00 01/04/17 08:59 12/05/16 08:28 325 MG Folic Acid (Folvite Tab) 1 mg QAM PO 12/05/16 09:00 01/04/17 08:59 12/05/16 08:28 1 MG Hydrochlorothiazide (Hydrochlorothiazide Tab) 25 mg QAM PO 12/05/16 09:00 01/04/17 08:59 12/05/16 08:30 25 MG Lisinopril (Zestril Tab) 20 mg QAM PO 12/05/16 09:00 01/04/17 08:59 12/05/16 08:29 20 MG Metoprolol Tartrate (Lopressor Tab) 25 mg BID PO 12/05/16 09:00 01/04/17 08:59 12/05/16 08:30 25 MG Nitroglycerin (Nitrostat Tab) 0.4 mg UD PRN UT 12/04/16 22:00 01/03/17 21:59 Simvastatin (Zocor Tab) 20 mg QAM PO 12/05/16 09:00 01/04/17 08:59 12/05/16 08:29 20 MG Pantoprazole Sodium (Protonix Tab) 40 mg QAM PO 12/05/16 09:00 01/04/17 08:59 12/05/16 08:29 40 MG Nystatin (Mycostatin Susp) 5 ml QID PO 12/05/16 09:00 12/15/16 08:59 12/05/16 08:28 5 ML Albuterol/ Ipratropium (Duoneb) 3 ml QIDR INH 12/05/16 08:00 01/04/17 07:59 12/05/16 07:06 3 ML Vancomycin HCl 1 ea 1 ea UD PRN N/A 12/04/16 22:30 01/03/17 22:29 Sodium Chloride (Nss 1000ml) 1,000 ml @ 100 mls/hr Q10H IV 12/04/16 23:45 01/03/17 23:44 12/05/16 08:31 100 MLS/HR Heparin Sodium (Porcine) 5 ml 5 ml PRN PRN IV 12/05/16 01:45 01/04/17 01:44 Vancomycin HCl/ Sodium Chloride (Vancomycin Inj/ Nss 250ml) 265 ml @ 125 mls/hr Q18H IV 12/05/16 16:30 12/12/16 16:29 Review of Systems Constitutional: + chills, + fatigue, + fever Eyes: No worsening of vision ENT: No nasal symptoms, No unusual epistaxis Respiratory: + cough, + sputum, No shortness of breath Cardiovascular: No chest pain Abdomen: + nausea, No diarrhea, No pain Musculoskeletal: No joint pain, No muscle pain Genitourinary - Male: No dysuria, No hematuria Integumentary: No rash Physical Exam Date Time Temp Pulse Resp B/P Pulse Ox O2 Delivery O2 Flow Rate FiO2 12/05/16 07:12 37.2 103 18 115/74 100 3.0 12/05/16 04:51 36.9 12/05/16 04:00 96 Nasal Cannula 3.0 12/05/16 03:30 37.8 109 18 112/65 97 Nasal Cannula 12/05/16 02:43 38.3 12/05/16 01:38 37.5 12/04/16 23:59 96 Nasal Cannula 3.0 12/04/16 23:35 37.2 132 18 120/71 96 Nasal Cannula 3.0 12/04/16 21:57 36.9 118 22 113/67 96 Nasal Cannula 3.0 12/04/16 20:09 37.4 125 19 120/60 95 Nasal Cannula 3.0 12/04/16 20:07 127 12/04/16 18:49 84 Room Air 12/04/16 18:28 38.6 138 18 118/64 85 Room Air General Appearance: no apparent distress, + pertinent finding (thin, chronically-ill appearing, but comfortable) Eyes: EOMI ENT: pharynx normal Respiratory/Chest: lungs clear, no respiratory distress Cardiovascular: regular rate, rhythm Abdomen/GI: non tender, soft Extremities/Musculoskelatal: no calf tenderness, no pedal edema Neurologic/Psych: alert, oriented x 3 Skin: warm/dry, no rash Lymphatic: no adenopathy Laboratory Results Last 24 Hours Test 12/04/16 19:06 12/04/16 19:24 12/04/16 19:51 12/04/16 21:43 Bedside Lactic Acid Venous 0.86 mmol/L White Blood Count 0.27 K/uL Red Blood Count 4.66 M/uL Hemoglobin 13.8 g/dL Hematocrit 42.4 % Mean Corpuscular Volume 91.0 fL Mean Corpuscular Hemoglobin 29.6 pg Mean Corpuscular Hemoglobin Concent 32.5 g/dl Platelet Count 38 K/uL RDW Standard Deviation 52.5 fL RDW Coefficient of Variation 15.7 % Neutrophils % (Manual) 22.0 % Lymphocytes % (Manual) 60.0 % Monocytes % (Manual) 11.0 % Eosinophils % (Manual) 6.0 % Basophils % (Manual) 1.0 % Neutrophils # (Manual) 0.06 K/uL Total Absolute Neutrophils 0.06 K/uL Lymphocytes # (Manual) 0.16 K/uL Total Absolute Lymphocytes 0.16 K/uL Monocytes # (Manual) 0.03 K/uL Eosinophils # (Manual) 0.02 K/uL Basophils # (Manual) 0.00 K/uL Giant Platelets 2+ Red Blood Cell Morphology Unremarkable Erythrocyte Sedimentation Rate 59 mm/hr Prothrombin Time 10.7 SECONDS Prothromb Time International Ratio 1.0 Activated Partial Thromboplast Time 42.7 SECONDS Partial Thromboplastin Ratio 1.6 Sodium Level 139 mmol/L Potassium Level 4.3 mmol/L Chloride Level 102 mmol/L Carbon Dioxide Level 32 mmol/L Anion Gap 5.0 mmol/L Blood Urea Nitrogen 33 mg/dl Creatinine 1.30 mg/dl Est Creatinine Clear Calc Drug Dose 40.2 ml/min Estimated GFR () 62.7 Estimated GFR (Non- 54.1 BUN/Creatinine Ratio 25.2 Random Glucose 125 mg/dl Calcium Level 8.5 mg/dl Phosphorus Level 2.4 mg/dl Magnesium Level 1.4 mg/dl Total Bilirubin 0.4 mg/dl Aspartate Amino Transf (AST/SGOT) 19 U/L Alanine Aminotransferase (ALT/SGPT) 20 U/L Alkaline Phosphatase 85 U/L Total Creatine Kinase 24 U/L Creatine Kinase MB < 0.5 ng/ml Creatine Kinase MB Ratio Troponin I 0.292 ng/ml C-Reactive Protein 12.90 mg/dl Pro-B-Type Natriuretic Peptide 924 pg/ml Total Protein 6.3 gm/dl Albumin 2.8 gm/dl Globulin 3.5 gm/dl Albumin/Globulin Ratio 0.8 Lipase 59 U/L Venous Blood pH 7.42 Venous Blood Partial Pressure CO2 46 mmHg Venous Blood Partial Pressure O2 23 mmHg Venous Blood HCO3 29 mmol/L Venous Blood Oxygen Saturation < 60.0 % Venous Blood Base Excess 4.2 mmol/L Urine Color YELLOW Urine Appearance CLEAR Urine pH 5.0 Urine Specific Josephine 1.016 Urine Protein NEG Urine Glucose (UA) NEG Urine Ketones NEG Urine Occult Blood NEG Urine Nitrite NEG Urine Bilirubin NEG Urine Urobilinogen NEG Urine Leukocyte Esterase NEG Urine WBC (Auto) 1-5 /hpf Urine RBC (Auto) 0-4 /hpf Urine Hyaline Casts (Auto) 1-5 /lpf Urine Epithelial Cells (Auto) 5-10 /lpf Urine Bacteria (Auto) NEG Test 12/04/16 22:23 12/05/16 05:30 Lactic Acid Level 0.9 mmol/L Troponin I 0.315 ng/ml 0.374 ng/ml White Blood Count 0.32 K/uL Red Blood Count 2.55 M/uL Hemoglobin 7.8 g/dL Hematocrit 23.5 % Mean Corpuscular Volume 92.2 fL Mean Corpuscular Hemoglobin 30.6 pg Mean Corpuscular Hemoglobin Concent 33.2 g/dl Platelet Count 63 K/uL Mean Platelet Volume 12.3 fL Neutrophils (%) (Auto) 3.0 % Lymphocytes (%) (Auto) 68.8 % Monocytes (%) (Auto) 6.3 % Eosinophils (%) (Auto) 18.8 % Basophils (%) (Auto) 3.1 % Neutrophils # (Auto) 0.01 K/uL Lymphocytes # (Auto) 0.22 K/uL Monocytes # (Auto) 0.02 K/uL Eosinophils # (Auto) 0.06 K/uL Basophils # (Auto) 0.01 K/uL RDW Standard Deviation 52.8 fL RDW Coefficient of Variation 15.5 % Immature Granulocyte % (Auto) 0.0 % Immature Granulocyte # (Auto) 0.00 K/uL Toxic Granulation 1+ Giant Platelets 1+ Tear Drop Cells 1+ Activated Partial Thromboplast Time 39.9 SECONDS Partial Thromboplastin Ratio 1.5 Sodium Level 142 mmol/L Potassium Level 4.6 mmol/L Chloride Level 109 mmol/L Carbon Dioxide Level 28 mmol/L Anion Gap 5.0 mmol/L Blood Urea Nitrogen 28 mg/dl Creatinine 1.20 mg/dl Est Creatinine Clear Calc Drug Dose 46.3 ml/min Estimated GFR () 69.1 Estimated GFR (Non- 59.6 BUN/Creatinine Ratio 23.5 Random Glucose 105 mg/dl Calcium Level 7.9 mg/dl Magnesium Level 1.8 mg/dl Total Bilirubin 0.7 mg/dl Aspartate Amino Transf (AST/SGOT) 14 U/L Alanine Aminotransferase (ALT/SGPT) 17 U/L Alkaline Phosphatase 70 U/L Total Protein 5.5 gm/dl Albumin 2.3 gm/dl Globulin 3.2 gm/dl Albumin/Globulin Ratio 0.7 Assessment & Plan Mr. Pink is feeling better this morning. He presented with febrile neutropenia secondary to chemotherapy. His only localizing sign is a cough with some purulent sputum. He also has a chest x-ray that reveals some patchy bilateral infiltrates. In addition to broad spectrum gram-negative and HAP coverage, I would consider adding coverage for atypical pneumonias, given the appearance of his x-ray. Otherwise, supportive care as per primary team. He already received Neulasta last week, which is supposed to last for 2 weeks, so I would hold off on additional Neupogen unless his counts do not start to recover.
[2016-12-05] MEDS ORDERED: VANCOMYCIN INJ 1,000 MG in SODIUM CHLORIDE 0.9% 250ML 250 ML IV SCH (09:00)
[2016-12-05] MEDS ORDERED: ASPIRIN 81 MG ECTAB PO SCH (09:00)
--- NOTE | 2016-12-05 10:26 | Clinical Documentation Query ---
RILEY Lopez : CLINICAL DOCUMENTATION QUERY Patient is a 71 year old male admitted for evaluation and treatment of sepsis secondary to pneumonia in the setting of neutropenia. After IV repletion of intravascular volume (patient reported poor appetite/intake secondary to nausea), labs this a.m. demonstrated a WBC of 0.32, a hemoglobin and hematocrit of 7.8 g/dl and 23.5%, and platelets of 63,000. He has recently (11/28) completed 6 cycles of R-CHOP for mantle cell lymphoma. He has recieved Neulasta and is being monitored with serial hematology. In your clinical opinion is this patient being managed for: ( xx ) Antineoplastic chemotherapy induced pancytopenia ( ) Other explanation of clinical findings (Please Explain) ( ) Unable to determine (Please Define) ( ) Need to Discuss ( ) Not Agree The medical record reflects the following clinical findings, treatment, and risk factors. Clinical Indicators: As above Treatment:He has recieved Neulasta and is being monitored with serial hematology. Risk Factors: Chemotherapy administration Please clarify and document your clinical opinion in the progress notes and discharge summary. Terms such as "probable", "suspected", "likely", "questionable", "possible", or "still to be ruled out" are acceptable. IF IN AGREEMENT, YOU MUST DOCUMENT ABOVE DIAGNOSTIC STATEMENT IN DAILY PROGRESS NOTES AND DISCHARGE SUMMARY. This document is not part of the patient's record. Thank You, Dylon Salvador, JIMBO [phone]
--- NOTE | 2016-12-05 11:27 | Hospitalist Progress Note ---
Hospitalist Progress Note Date of Service December 05, 2016. (Jyoti Lucia ., PA-C) Subjective Pt evaluation today including: conversation w/ patient, physical exam, chart review, lab review, review of studies, conversation w/ market intelligence consultant (Dr. Nikos Faye ), review of inpatient medication list Voiding: no voiding problems, no incontinence Patient states he is feeling well. Admits to productive cough; yellow/green sputum. +decreased appetite. He denies any chest pain. Patient denies any fever , chills, sweats, lightheadedness, dizziness, vision changes, CP, palpitations, edema, SOB, wheezing, abdominal pain, nausea, vomiting, diarrhea, urinary symptoms, melena, numbness/tingling, weakness, muscle/joint pain, anxiety/ depression, active bleeding, or new skin discoloration/changes. (Jyoti Lucia ., PA-C) Medications Current Inpatient Medications Medications (Trade) Dose Ordered Sig/Sigrid Route Start Time Stop Time Status Last Admin Dose Admin Cefepime HCl/ Dextrose (Maxipime IV/D5 50ml) 62.5 ml @ 100 mls/hr Q12@0800,2000 IV 12/05/16 08:00 12/11/16 19:59 12/05/16 08:27 100 MLS/HR Miscellaneous Information (Pharmacy Consult) 1 ea UD PRN N/A 12/04/16 20:45 01/03/17 20:44 Acetaminophen (Tylenol Tab) 650 mg Q4H PRN PO 12/04/16 20:45 01/03/17 20:44 12/05/16 01:40 650 MG Ondansetron HCl (Zofran Inj) 4 mg Q6H PRN IV 12/04/16 20:45 01/03/17 20:44 Ascorbic Acid (Vitamin C Tab) 500 mg QAM PO 12/05/16 09:00 01/04/17 08:59 12/05/16 08:29 500 MG Ferrous Sulfate (Feosol Tab) 325 mg QAM PO 12/05/16 09:00 01/04/17 08:59 12/05/16 08:28 325 MG Folic Acid (Folvite Tab) 1 mg QAM PO 12/05/16 09:00 01/04/17 08:59 12/05/16 08:28 1 MG Hydrochlorothiazide (Hydrochlorothiazide Tab) 25 mg QAM PO 12/05/16 09:00 01/04/17 08:59 12/05/16 08:30 25 MG Lisinopril (Zestril Tab) 20 mg QAM PO 12/05/16 09:00 01/04/17 08:59 12/05/16 08:29 20 MG Metoprolol Tartrate (Lopressor Tab) 25 mg BID PO 12/05/16 09:00 01/04/17 08:59 12/05/16 08:30 25 MG Nitroglycerin (Nitrostat Tab) 0.4 mg UD PRN UT 12/04/16 22:00 01/03/17 21:59 Simvastatin (Zocor Tab) 20 mg QAM PO 12/05/16 09:00 01/04/17 08:59 12/05/16 08:29 20 MG Pantoprazole Sodium (Protonix Tab) 40 mg QAM PO 12/05/16 09:00 01/04/17 08:59 12/05/16 08:29 40 MG Nystatin (Mycostatin Susp) 5 ml QID PO 12/05/16 09:00 12/15/16 08:59 12/05/16 08:28 5 ML Albuterol/ Ipratropium (Duoneb) 3 ml QIDR INH 12/05/16 08:00 01/04/17 07:59 12/05/16 07:06 3 ML Vancomycin HCl 1 ea 1 ea UD PRN N/A 12/04/16 22:30 01/03/17 22:29 Sodium Chloride (Nss 1000ml) 1,000 ml @ 100 mls/hr Q10H IV 12/04/16 23:45 01/03/17 23:44 12/05/16 08:31 100 MLS/HR Heparin Sodium (Porcine) 5 ml 5 ml PRN PRN IV 12/05/16 01:45 01/04/17 01:44 Vancomycin HCl/ Sodium Chloride (Vancomycin Inj/ Nss 250ml) 265 ml @ 125 mls/hr Q18H IV 12/05/16 16:30 12/12/16 16:29 (Jyoti Lucia, SEBASTIÁN) Objective Vital Signs Date Time Temp Pulse Resp B/P Pulse Ox O2 Delivery O2 Flow Rate FiO2 12/05/16 10:59 37.2 103 18 129/76 99 3.0 12/05/16 08:00 100 Nasal Cannula 2.0 12/05/16 07:12 37.2 103 18 115/74 100 3.0 12/05/16 07:05 92 20 96 Nasal Cannula 3.0 12/05/16 04:51 36.9 12/05/16 04:00 96 Nasal Cannula 3.0 12/05/16 03:30 37.8 109 18 112/65 97 Nasal Cannula 12/05/16 02:43 38.3 12/05/16 01:38 37.5 12/04/16 23:59 96 Nasal Cannula 3.0 12/04/16 23:35 37.2 132 18 120/71 96 Nasal Cannula 3.0 12/04/16 21:57 36.9 118 22 113/67 96 Nasal Cannula 3.0 12/04/16 20:09 37.4 125 19 120/60 95 Nasal Cannula 3.0 12/04/16 20:07 127 12/04/16 18:49 84 Room Air 12/04/16 18:28 38.6 138 18 118/64 85 Room Air (Jyoti Lucia ., PA-C) Physical Exam General Appearance: no apparent distress Eyes: normal inspection, PERRL ENT: hearing grossly normal Neck: supple Respiratory/Chest: no respiratory distress, no accessory muscle use, + decreased breath sounds (bilateral lung bases ), + crackles (bilateral lung bases, L>R) Cardiovascular: + tachycardia (rhythm regular ) Abdomen: normal bowel sounds, non tender, soft Extremities: no pedal edema, no calf tenderness Neurologic/Psychiatric: alert, normal mood/affect, oriented x 3 (Jyoti Lucia ., PA-C) Laboratory Results Last 24 Hours Test 12/04/16 19:06 12/04/16 19:24 12/04/16 19:51 12/04/16 21:43 Bedside Lactic Acid Venous 0.86 mmol/L White Blood Count 0.27 K/uL Red Blood Count 4.66 M/uL Hemoglobin 13.8 g/dL Hematocrit 42.4 % Mean Corpuscular Volume 91.0 fL Mean Corpuscular Hemoglobin 29.6 pg Mean Corpuscular Hemoglobin Concent 32.5 g/dl Platelet Count 38 K/uL RDW Standard Deviation 52.5 fL RDW Coefficient of Variation 15.7 % Neutrophils % (Manual) 22.0 % Lymphocytes % (Manual) 60.0 % Monocytes % (Manual) 11.0 % Eosinophils % (Manual) 6.0 % Basophils % (Manual) 1.0 % Neutrophils # (Manual) 0.06 K/uL Total Absolute Neutrophils 0.06 K/uL Lymphocytes # (Manual) 0.16 K/uL Total Absolute Lymphocytes 0.16 K/uL Monocytes # (Manual) 0.03 K/uL Eosinophils # (Manual) 0.02 K/uL Basophils # (Manual) 0.00 K/uL Giant Platelets 2+ Red Blood Cell Morphology Unremarkable Erythrocyte Sedimentation Rate 59 mm/hr Prothrombin Time 10.7 SECONDS Prothromb Time International Ratio 1.0 Activated Partial Thromboplast Time 42.7 SECONDS Partial Thromboplastin Ratio 1.6 Sodium Level 139 mmol/L Potassium Level 4.3 mmol/L Chloride Level 102 mmol/L Carbon Dioxide Level 32 mmol/L Anion Gap 5.0 mmol/L Blood Urea Nitrogen 33 mg/dl Creatinine 1.30 mg/dl Est Creatinine Clear Calc Drug Dose 40.2 ml/min Estimated GFR () 62.7 Estimated GFR (Non- 54.1 BUN/Creatinine Ratio 25.2 Random Glucose 125 mg/dl Calcium Level 8.5 mg/dl Phosphorus Level 2.4 mg/dl Magnesium Level 1.4 mg/dl Total Bilirubin 0.4 mg/dl Aspartate Amino Transf (AST/SGOT) 19 U/L Alanine Aminotransferase (ALT/SGPT) 20 U/L Alkaline Phosphatase 85 U/L Total Creatine Kinase 24 U/L Creatine Kinase MB < 0.5 ng/ml Creatine Kinase MB Ratio Troponin I 0.292 ng/ml C-Reactive Protein 12.90 mg/dl Pro-B-Type Natriuretic Peptide 924 pg/ml Total Protein 6.3 gm/dl Albumin 2.8 gm/dl Globulin 3.5 gm/dl Albumin/Globulin Ratio 0.8 Lipase 59 U/L Venous Blood pH 7.42 Venous Blood Partial Pressure CO2 46 mmHg Venous Blood Partial Pressure O2 23 mmHg Venous Blood HCO3 29 mmol/L Venous Blood Oxygen Saturation < 60.0 % Venous Blood Base Excess 4.2 mmol/L Urine Color YELLOW Urine Appearance CLEAR Urine pH 5.0 Urine Specific [place] 1.016 Urine Protein NEG Urine Glucose (UA) NEG Urine Ketones NEG Urine Occult Blood NEG Urine Nitrite NEG Urine Bilirubin NEG Urine Urobilinogen NEG Urine Leukocyte Esterase NEG Urine WBC (Auto) 1-5 /hpf Urine RBC (Auto) 0-4 /hpf Urine Hyaline Casts (Auto) 1-5 /lpf Urine Epithelial Cells (Auto) 5-10 /lpf Urine Bacteria (Auto) NEG Test 12/04/16 22:23 12/05/16 05:30 Lactic Acid Level 0.9 mmol/L Troponin I 0.315 ng/ml 0.374 ng/ml White Blood Count 0.32 K/uL Red Blood Count 2.55 M/uL Hemoglobin 7.8 g/dL Hematocrit 23.5 % Mean Corpuscular Volume 92.2 fL Mean Corpuscular Hemoglobin 30.6 pg Mean Corpuscular Hemoglobin Concent 33.2 g/dl Platelet Count 63 K/uL Mean Platelet Volume 12.3 fL Neutrophils (%) (Auto) 3.0 % Lymphocytes (%) (Auto) 68.8 % Monocytes (%) (Auto) 6.3 % Eosinophils (%) (Auto) 18.8 % Basophils (%) (Auto) 3.1 % Neutrophils # (Auto) 0.01 K/uL Lymphocytes # (Auto) 0.22 K/uL Monocytes # (Auto) 0.02 K/uL Eosinophils # (Auto) 0.06 K/uL Basophils # (Auto) 0.01 K/uL RDW Standard Deviation 52.8 fL RDW Coefficient of Variation 15.5 % Immature Granulocyte % (Auto) 0.0 % Immature Granulocyte # (Auto) 0.00 K/uL Toxic Granulation 1+ Giant Platelets 1+ Tear Drop Cells 1+ Activated Partial Thromboplast Time 39.9 SECONDS Partial Thromboplastin Ratio 1.5 Sodium Level 142 mmol/L Potassium Level 4.6 mmol/L Chloride Level 109 mmol/L Carbon Dioxide Level 28 mmol/L Anion Gap 5.0 mmol/L Blood Urea Nitrogen 28 mg/dl Creatinine 1.20 mg/dl Est Creatinine Clear Calc Drug Dose 46.3 ml/min Estimated GFR () 69.1 Estimated GFR (Non- 59.6 BUN/Creatinine Ratio 23.5 Random Glucose 105 mg/dl Calcium Level 7.9 mg/dl Magnesium Level 1.8 mg/dl Total Bilirubin 0.7 mg/dl Aspartate Amino Transf (AST/SGOT) 14 U/L Alanine Aminotransferase (ALT/SGPT) 17 U/L Alkaline Phosphatase 70 U/L Total Protein 5.5 gm/dl Albumin 2.3 gm/dl Globulin 3.2 gm/dl Albumin/Globulin Ratio 0.7 (Jyoti Lucia PA-C) Assessment and Plan 71 year old male 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 Last received G-CSF on Sunday Neutropenic sepsis (source pneumonia) - neutropenia secondary to chemotherapy: - Admit to tele for cardiac monitoring- sinus tachycardia - Neutropenic precautions - IVF @ 100 ml/hr - Cefepime IV + Vancomycin until remains afebrile and counts improve -- Will consider the addition of atypical coverage (Levaquin or Azithromycin ) pending patient assessment tomorrow - MRSA nasal swab- negative - BCx pending - UA- negative - DuoNebs QID and PRN - Flutter valve + incentive spirometry - Consult hem/oncology, appreciate recommendations -- No Neupogen at this time. Patient received Neulasta on 11/29 Thrombocytopenia, secondary to chemotherapy vs infection- IMPROVING: Follow CBC Anemia: Continue Ferrous Sulfate supplement COPD w/out exacerbation: - DuoNebs QID + Q2H PRN Oral thrush: Nystatin swish and swallow 5ml QID Elevated troponin - in setting of tachycardia, no ischemic changes on EKG: - Trend cardiac enzymes Hypomagnesemia- RESOLVED: - Treated w/ IV mag - Follow mag level Hypertension: Continue HCTZ, Lisinopril, and Metoprolol HDL: Continue Simvastatin GI Prophylaxis: Protonix DVT Prophylaxis: Chemical means contraindicated due to thrombocytopenia, Ambulation Code Status: LEVEL V, DNR Disposition: - From home, lives w/ - PT/OT evaluations (Jyoti Lucia PA-C) PA Physician Supervision Note: I interviewed and examined the patient. Discussed with Jyoti AN and agree with findings and plan as documented in the note. Any exceptions or clarifications are listed here: None Pt is awake and alert has a loose cough, otherwise feels tired vitals stable car is tachycardic and worsens with exertion lungs with coarse rhonchi that clear with cough, no focal loss or egophony abdomen is non tender Neutropenic fever and possible gram negative pneumonia, My read of cxr is not of a significant pneumonia at this time but with low WBC may not seem as such, continue vancomycin and Cefepime to cover, not adding atypical coverage unless clinically dictates Neutropenia, no new GCSF per oncology Documented By: Andrea Rubio (Andrea Rubio M.D.) (Andrea Rubio M.D.)
[2016-12-05] MEDS: GUAIFENESIN/CODEINE 200MG/20MG 10ML UDC PO PRN ×2 (13:43→20:18)
[2016-12-05 13:49] LABS: HEMATOCRIT 24.7 % (42-52)
[2016-12-05] MEDS: VANCOMYCIN INJ 750 MG in SODIUM CHLORIDE 0.9% 250ML 250 ML IV SCH (16:12)
[2016-12-06] VITALS (22 sets, daily range): BP systolic 112–134; BP diastolic 54–85; PULSE 101–114; TEMP 36.7–37.6; O2SAT 91–100
[2016-12-06] MEDS: SODIUM CHLORIDE 0.9% 1000ML 1,000 ML IV SCH (06:14)
[2016-12-06 06:32] LABS: MEAN CELL VOLUME 92.5 fL (80-100); MEAN CORPUSCULAR HEMOGLOBIN 30.4 pg (25-34); MEAN CORPUSCULAR HGB CONC 32.9 g/dl (32-36); MEAN PLATELET VOLUME 10.5 fL (7.4-10.4); PLATELET COUNT 34 K/uL (130-400); RED BLOOD COUNT 2.27 M/uL (4.7-6.1); WHITE BLOOD COUNT 0.42 K/uL (4.8-10.8)
[2016-12-06 06:50] LABS: CALCIUM 7.8 mg/dl (8.5-10.1); CREATININE 1.1 mg/dl (0.60-1.40); MAGNESIUM 1.7 mg/dl (1.8-2.4); POTASSIUM 4.1 mmol/L (3.5-5.1)
[2016-12-06] MEDS: ALBUT/IPRATROP 3MG/0.5MG NEB 3 ML VIAL INH SCH ×4 (07:22→19:00)
[2016-12-06] MEDS: CEFEPIME IV SCH ×2 (08:22→20:44)
[2016-12-06] MEDS: DEXTROSE 5% IV SCH ×2 (08:22→20:44)
[2016-12-06] MEDS: FERROUS SULFATE 325 MG TAB PO SCH (08:23)
[2016-12-06] MEDS: LISINOPRIL 20 MG TAB PO SCH (08:23)
[2016-12-06] MEDS: HYDROCHLOROTHIAZIDE 25 MG TAB PO SCH (08:23)
[2016-12-06] MEDS: PANTOprazole SOD 40 MG TAB PO SCH (08:24)
[2016-12-06] MEDS: METOPROLOL TARTRATE 25 MG TAB PO SCH ×2 (08:24→20:45)
[2016-12-06] MEDS: NYSTATIN SUSP 500,000 U/5 ML UDC PO SCH ×4 (08:24→20:45)
[2016-12-06] MEDS: ASCORBIC ACID 500 MG TAB PO SCH (08:24)
[2016-12-06 08:36] LABS: BASO % 2.6 %; BASO ABS # 0.01 K/uL (0-0.2); COMPLETE YES; EOS % 20.5 %; LARGE PLATELETS 3+; LYMPH % 53.8 %; LYMPH ABS # 0.21 K/uL (1.2-3.4); MONO % 17.9 %; NEUT % 5.2 %
[2016-12-06] MEDS: VANCOMYCIN INJ 750 MG in SODIUM CHLORIDE 0.9% 250ML 250 ML IV SCH (09:32)
--- NOTE | 2016-12-06 11:42 | Hospitalist Progress Note ---
Hospitalist Progress Note Date of Service December 06, 2016. (Jyoti Lucia ., PA-C) Subjective Pt evaluation today including: conversation w/ patient, physical exam, chart review, lab review, review of inpatient medication list Voiding: no voiding problems, no incontinence Patient states he is feeling OK this AM. No significant improvements in symptoms. +SOB on exertion. +productive cough. +melena; admits to dark stools since being on iron supplement, but this AM his stool was darker than normal. He is eating and drinking OK. Patient denies any fever, chills, sweats, lightheadedness, dizziness, vision changes, CP, palpitations, edema, wheezing, cough, abdominal pain, nausea, vomiting, diarrhea, urinary symptoms, numbness/ tingling, weakness, muscle/joint pain, anxiety/depression, active bleeding, or new skin discoloration/changes. (Jyoti Lucia ., PA-C) Medications Current Inpatient Medications Medications (Trade) Dose Ordered Sig/Sigrid Route Start Time Stop Time Status Last Admin Dose Admin Cefepime HCl/ Dextrose (Maxipime IV/D5 50ml) 62.5 ml @ 100 mls/hr Q12@0800,2000 IV 12/05/16 08:00 12/11/16 19:59 12/06/16 08:22 100 MLS/HR Miscellaneous Information (Pharmacy Consult) 1 ea UD PRN N/A 12/04/16 20:45 01/03/17 20:44 Acetaminophen (Tylenol Tab) 650 mg Q4H PRN PO 12/04/16 20:45 01/03/17 20:44 12/05/16 23:50 650 MG Ondansetron HCl (Zofran Inj) 4 mg Q6H PRN IV 12/04/16 20:45 01/03/17 20:44 Ascorbic Acid (Vitamin C Tab) 500 mg QAM PO 12/05/16 09:00 01/04/17 08:59 12/06/16 08:24 500 MG Ferrous Sulfate (Feosol Tab) 325 mg QAM PO 12/05/16 09:00 01/04/17 08:59 12/06/16 08:23 325 MG Folic Acid (Folvite Tab) 1 mg QAM PO 12/05/16 09:00 01/04/17 08:59 12/06/16 08:24 1 MG Hydrochlorothiazide (Hydrochlorothiazide Tab) 25 mg QAM PO 12/05/16 09:00 01/04/17 08:59 12/06/16 08:23 25 MG Lisinopril (Zestril Tab) 20 mg QAM PO 12/05/16 09:00 01/04/17 08:59 12/06/16 08:23 20 MG Metoprolol Tartrate (Lopressor Tab) 25 mg BID PO 12/05/16 09:00 01/04/17 08:59 12/06/16 08:24 25 MG Nitroglycerin (Nitrostat Tab) 0.4 mg UD PRN UT 12/04/16 22:00 01/03/17 21:59 Simvastatin (Zocor Tab) 20 mg QAM PO 12/05/16 09:00 01/04/17 08:59 12/05/16 20:18 20 MG Pantoprazole Sodium (Protonix Tab) 40 mg QAM PO 12/05/16 09:00 01/04/17 08:59 12/06/16 08:24 40 MG Nystatin (Mycostatin Susp) 5 ml QID PO 12/05/16 09:00 12/15/16 08:59 12/06/16 08:24 5 ML Albuterol/ Ipratropium (Duoneb) 3 ml QIDR INH 12/05/16 08:00 01/04/17 07:59 12/06/16 11:13 3 ML Vancomycin HCl 1 ea 1 ea UD PRN N/A 12/04/16 22:30 01/03/17 22:29 Sodium Chloride (Nss 1000ml) 1,000 ml @ 100 mls/hr Q10H IV 12/04/16 23:45 01/03/17 23:44 12/06/16 06:14 100 MLS/HR Heparin Sodium (Porcine) 5 ml 5 ml PRN PRN IV 12/05/16 01:45 01/04/17 01:44 Vancomycin HCl/ Sodium Chloride (Vancomycin Inj/ Nss 250ml) 265 ml @ 125 mls/hr Q18H IV 12/05/16 16:30 12/12/16 16:29 12/06/16 09:32 125 MLS/HR Codeine Phosphate/ Guaifenesin (Robitussin-AC Sugar Free Syrup) 10 ml Q6H PRN PO 12/05/16 13:15 01/04/17 13:14 12/05/16 20:18 10 ML (Jyoti Lucia, JOSELUIS-C) Objective Vital Signs Date Time Temp Pulse Resp B/P Pulse Ox O2 Delivery O2 Flow Rate FiO2 12/06/16 11:25 37.2 101 20 112/65 100 30.0 12/06/16 08:00 Nasal Cannula 2.0 12/06/16 07:22 103 20 96 Nasal Cannula 2.0 12/06/16 07:17 37.2 107 18 125/72 98 Room Air 12/06/16 04:00 Nasal Cannula 2.0 12/06/16 03:38 37.0 103 18 118/65 100 Nasal Cannula 2.0 12/05/16 23:59 Nasal Cannula 2.0 12/05/16 23:30 38.2 109 21 119/67 98 Nasal Cannula 2.0 12/05/16 20:00 98 Nasal Cannula 2.0 12/05/16 19:48 37.5 112 18 106/66 100 Room Air 12/05/16 19:45 109 20 97 Nasal Cannula 2.0 12/05/16 16:19 120 20 98 Nasal Cannula 3.0 12/05/16 16:01 37.8 119 18 106/63 97 Nasal Cannula 12/05/16 16:00 98 Nasal Cannula 2.0 12/05/16 12:16 117 20 90 Nasal Cannula 3.0 12/05/16 12:00 100 Nasal Cannula 3.0 (Jyoti Lucia, JOSELUIS-C) Physical Exam General Appearance: no apparent distress Eyes: normal inspection, PERRL ENT: hearing grossly normal Neck: supple Respiratory/Chest: no respiratory distress, no accessory muscle use, + decreased breath sounds (bilateral lung bases ) Cardiovascular: + tachycardia (rhythm regular ) Abdomen: normal bowel sounds, non tender, soft Extremities: no pedal edema, no calf tenderness Neurologic/Psychiatric: alert, normal mood/affect, oriented x 3 Skin: normal color, warm/dry, no rash (Jyoti Lucia, PA-C) Laboratory Results Last 24 Hours Test 12/05/16 13:10 12/05/16 13:44 12/06/16 05:20 Troponin I 0.246 ng/ml Hemoglobin 7.8 g/dL 6.9 g/dL Hematocrit 24.7 % 21.0 % White Blood Count 0.42 K/uL Red Blood Count 2.27 M/uL Mean Corpuscular Volume 92.5 fL Mean Corpuscular Hemoglobin 30.4 pg Mean Corpuscular Hemoglobin Concent 32.9 g/dl Platelet Count 34 K/uL Mean Platelet Volume 10.5 fL Neutrophils (%) (Auto) 5.2 % Lymphocytes (%) (Auto) 53.8 % Monocytes (%) (Auto) 17.9 % Eosinophils (%) (Auto) 20.5 % Basophils (%) (Auto) 2.6 % Neutrophils # (Auto) 0.02 K/uL Lymphocytes # (Auto) 0.21 K/uL Monocytes # (Auto) 0.07 K/uL Eosinophils # (Auto) 0.08 K/uL Basophils # (Auto) 0.01 K/uL RDW Standard Deviation 53.1 fL RDW Coefficient of Variation 15.7 % Immature Granulocyte % (Auto) 0.0 % Immature Granulocyte # (Auto) 0.00 K/uL Large Platelets 3+ Sodium Level 143 mmol/L Potassium Level 4.1 mmol/L Chloride Level 110 mmol/L Carbon Dioxide Level 25 mmol/L Anion Gap 8.0 mmol/L Blood Urea Nitrogen 18 mg/dl Creatinine 1.10 mg/dl Est Creatinine Clear Calc Drug Dose 52.4 ml/min Estimated GFR () 76.8 Estimated GFR (Non- 66.2 BUN/Creatinine Ratio 16.0 Random Glucose 93 mg/dl Calcium Level 7.8 mg/dl Magnesium Level 1.7 mg/dl (Jyoti Lucia, PA-C) Assessment and Plan 71 year old male 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 Last received G-CSF on Sunday Neutropenic sepsis (source pneumonia) - neutropenia secondary to chemotherapy: - Admit to tele for cardiac monitoring -- Transfer to med/surg on 12/06- no acute events, sinus tachy w/ activity noted, likely due to infectious process - Neutropenic precautions - IVF @ 100 ml/hr x4 bags - Cefepime IV + Vancomycin until remains afebrile and counts improve -- d/c Vancomycin due to MRSA swab negative; start IV Levaquin due to no improvement in symptoms (12/06) - MRSA nasal swab- negative - BCx NGTD - UA- negative - DuoNebs QID and PRN - Robitussin for cough - Flutter valve + incentive spirometry - Consult hem/oncology, appreciate recommendations -- No Neupogen at this time. Patient received Neulasta on 11/29 Melena w/ worsening anemia: - hgb 6.9 on 12/06 -- Consent obtained; type and cross; transfuse 2 u PRBC on 12/06 - Recheck H&H this evening - IV Protonix BID - If hgb continues to worsen, will consult GI for ?scope- no consult at this time due to current PNA and low probability GI will want to proceed procedure with current health state. - Continue Iron supplement Thrombocytopenia, secondary to chemotherapy vs infection- IMPROVING: Follow CBC Pancytopenia due to chemotherapy: - Neulasta on 11/29 - Follow CBC w/ diff COPD w/out exacerbation: - DuoNebs QID + Q2H PRN Oral thrush: Nystatin swish and swallow 5ml QID Elevated troponin - in setting of tachycardia, no ischemic changes on EKG: - Trend cardiac enzymes- peak trop 0.374 Hypomagnesemia: - Treated w/ IV mag at admission due to mag of 1.4 -- On 12/06, mag level of 1.7- start mag-ox supplement BID - Follow mag level Hypertension: Continue HCTZ, Lisinopril, and Metoprolol HDL: Continue Simvastatin GI Prophylaxis: Protonix BID DVT Prophylaxis: Chemical means contraindicated due to thrombocytopenia and worsening anemia; Ambulation Code Status: LEVEL V, DNR Disposition: - From home, lives w/ - PT/OT evaluations pending (Jyoti Lucia ., PA-C) PA Physician Supervision Note: I interviewed and examined the patient. Discussed with Jyoti AN and agree with findings and plan as documented in the note. Any exceptions or clarifications are listed here: None Pt is awake and alert has a feels tired and has some melena vitals stable exertional tachycardia car is tachycardic and worsens with exertion lungs with coarse rhonchi that clear with cough, no focal loss or egophony abdomen is non tender Neutropenic fever and possible gram negative pneumonia, such, continue vancomycin and Cefepime to cover, not adding atypical coverage unless clinically dictates Neutropenia, no new GCSF per oncology anemia, maybe acute blood loss with drastic drop in hgb, will have on bid ppi, cannot endoscope due to pneumonia preventing anesthesia, will only scope if urgent Documented By: Andrea Rubio (Andrea Rubio M.D.)
[2016-12-06] MEDS ORDERED: LEVOFLOXACIN CONSULT ACTIVE PRN (12:45)
[2016-12-06] MEDS: BOOST PLUS VANILLA PO SCH ×2 (16:50)
[2016-12-06] MEDS: LEVOFLOXACIN / D5W 750 MG in PREMIXED IN D5W 150 ML IV SCH (19:33)
[2016-12-06] MEDS ORDERED: MAGNESIUM OXIDE 400 MG TAB PO SCH (20:00)
[2016-12-06] MEDS: PANTOprazole INJ 40 MG in SYRINGE 0 ML IV SCH (20:45)
[2016-12-06 20:52] LABS: HEMATOCRIT 26.3 % (42-52)
[2016-12-07] VITALS (11 sets, daily range): BP systolic 114–138; BP diastolic 68–81; PULSE 95–121; TEMP 36.6–37.1; O2SAT 91–100
[2016-12-07] MEDS ORDERED: VANCOMYCIN TROUGH SCH (04:00)
[2016-12-07] MEDS: VANCOMYCIN INJ 750 MG in SODIUM CHLORIDE 0.9% 250ML 250 ML IV SCH (04:20)
[2016-12-07 05:00] LABS: BUN/CREATININE RATIO 12.7 (10-20); CALCIUM 8.2 mg/dl (8.5-10.1); CREATININE 1.1 mg/dl (0.60-1.40); MAGNESIUM 1.5 mg/dl (1.8-2.4); POTASSIUM 4.1 mmol/L (3.5-5.1)
[2016-12-07 05:12] LABS: HEMATOCRIT 27.4 % (42-52); MEAN CELL VOLUME 89.5 fL (80-100); MEAN CORPUSCULAR HEMOGLOBIN 29.7 pg (25-34); MEAN CORPUSCULAR HGB CONC 33.2 g/dl (32-36); MEAN PLATELET VOLUME 10.4 fL (7.4-10.4); PLATELET COUNT 34 K/uL (130-400); RED BLOOD COUNT 3.06 M/uL (4.7-6.1); WHITE BLOOD COUNT 0.67 K/uL (4.8-10.8)
[2016-12-07 05:16] LABS: BASO ABS # 0.02 K/uL (0-0.2); BASOPHIL % 2.9 % (0-2); COMPLETE YES; DOHLE BODIES 2+; LARGE PLATELETS 2+; LYMPH ABS # 0.35 K/uL (1.2-3.4); NEUTROPHILS % 11.7 %; PLT ESTIMATE SIGNIFIC DECREASED; TOXIC GRANULATION 2+; VACUOLIZATION 2+
[2016-12-07] MEDS ORDERED: MAGNESIUM SULFATE 1GM / D5W 1 GM in PREMIXED IN D5W 100 ML IV ONE (07:30)
[2016-12-07] MEDS: ALBUT/IPRATROP 3MG/0.5MG NEB 3 ML VIAL INH SCH ×3 (07:47→15:21)
[2016-12-07] MEDS: PANTOprazole INJ 40 MG in SYRINGE 0 ML IV SCH ×2 (08:49→20:36)
[2016-12-07] MEDS: SIMVASTATIN 20 MG TAB PO SCH (08:50)
[2016-12-07] MEDS: HYDROCHLOROTHIAZIDE 25 MG TAB PO SCH (08:50)
[2016-12-07] MEDS: BOOST PLUS VANILLA PO SCH ×4 (08:50→17:00)
[2016-12-07] MEDS: DEXTROSE 5% IV SCH ×2 (08:50→21:11)
[2016-12-07] MEDS: CEFEPIME IV SCH ×2 (08:50→21:11)
[2016-12-07] MEDS: METOPROLOL TARTRATE 25 MG TAB PO SCH ×2 (08:50→19:56)
[2016-12-07] MEDS: FERROUS SULFATE 325 MG TAB PO SCH (08:50)
[2016-12-07] MEDS: NYSTATIN SUSP 500,000 U/5 ML UDC PO SCH ×4 (08:51→19:55)
[2016-12-07] MEDS: ASCORBIC ACID 500 MG TAB PO SCH (08:51)
[2016-12-07] MEDS: LISINOPRIL 20 MG TAB PO SCH (08:51)
--- NOTE | 2016-12-07 10:45 | Hospitalist Progress Note ---
Hospitalist Progress Note Date of Service December 07, 2016. (Jyoti Lucia ., SEBASTIÁN) Subjective Pt evaluation today including: conversation w/ patient, physical exam, chart review, lab review, review of inpatient medication list Voiding: no voiding problems, no incontinence Patient states he is feeling well this AM. Cough has improved. Sputum production is now clear. Weakness has improved. Denies melena or obvious blood w / BM this AM. Patient denies any fever, chills, sweats, lightheadedness, dizziness, vision changes, CP, palpitations, edema, SOB, wheezing, abdominal pain, nausea, vomiting, diarrhea, urinary symptoms, melena, numbness/tingling, weakness, muscle/joint pain, anxiety/depression, active bleeding, or new skin discoloration/changes. (Jyoti Lucia ., ANDRADEC) Medications Current Inpatient Medications Medications (Trade) Dose Ordered Sig/Sigrid Route Start Time Stop Time Status Last Admin Dose Admin Cefepime HCl/ Dextrose (Maxipime IV/D5 50ml) 62.5 ml @ 100 mls/hr Q12@0800,2000 IV 12/05/16 08:00 12/11/16 19:59 12/07/16 08:50 100 MLS/HR Miscellaneous Information (Pharmacy Consult) 1 ea UD PRN N/A 12/04/16 20:45 01/03/17 20:44 Acetaminophen (Tylenol Tab) 650 mg Q4H PRN PO 12/04/16 20:45 01/03/17 20:44 12/05/16 23:50 650 MG Ondansetron HCl (Zofran Inj) 4 mg Q6H PRN IV 12/04/16 20:45 01/03/17 20:44 Ascorbic Acid (Vitamin C Tab) 500 mg QAM PO 12/05/16 09:00 01/04/17 08:59 12/07/16 08:51 500 MG Ferrous Sulfate (Feosol Tab) 325 mg QAM PO 12/05/16 09:00 01/04/17 08:59 12/07/16 08:50 325 MG Folic Acid (Folvite Tab) 1 mg QAM PO 12/05/16 09:00 01/04/17 08:59 12/07/16 08:51 1 MG Hydrochlorothiazide (Hydrochlorothiazide Tab) 25 mg QAM PO 12/05/16 09:00 01/04/17 08:59 12/07/16 08:50 25 MG Lisinopril (Zestril Tab) 20 mg QAM PO 12/05/16 09:00 01/04/17 08:59 12/07/16 08:51 20 MG Metoprolol Tartrate (Lopressor Tab) 25 mg BID PO 12/05/16 09:00 01/04/17 08:59 12/07/16 08:50 25 MG Nitroglycerin (Nitrostat Tab) 0.4 mg UD PRN UT 12/04/16 22:00 01/03/17 21:59 Simvastatin (Zocor Tab) 20 mg QAM PO 12/05/16 09:00 01/04/17 08:59 12/07/16 08:50 20 MG Nystatin (Mycostatin Susp) 5 ml QID PO 12/05/16 09:00 12/15/16 08:59 12/07/16 08:51 5 ML Albuterol/ Ipratropium (Duoneb) 3 ml QIDR INH 12/05/16 08:00 01/04/17 07:59 12/07/16 07:47 3 ML Heparin Sodium (Porcine) (Heparin 100 Unit/ml 5ml Flush) 5 ml PRN PRN IV 12/05/16 01:45 01/04/17 01:44 Codeine Phosphate/ Guaifenesin 10 ml 10 ml Q6H PRN PO 12/05/16 13:15 01/04/17 13:14 12/05/16 20:18 10 ML Pantoprazole Sodium 40 mg/ Syringe 10 ml @ 5 mls/min DAILY@09,21 IV 12/06/16 21:00 01/05/17 20:59 12/07/16 08:49 5 MLS/MIN Levofloxacin/Prmx (Levaquin / D5W/ Premixed D5W) 150 ml @ 100 mls/hr Q24H IV 12/06/16 13:00 12/13/16 12:59 12/06/16 19:33 100 MLS/HR Levofloxacin (Consult) 1 ea UD PRN N/A 12/06/16 12:45 01/05/17 12:44 Enteral Nutritional Formula (Boost Plus Vanilla) 1 can BIDM PO 12/06/16 17:00 01/05/17 16:59 12/06/16 16:50 1 CAN (Jyoti Lucia, PAJuliC) Objective Vital Signs Date Time Temp Pulse Resp B/P Pulse Ox O2 Delivery O2 Flow Rate FiO2 12/07/16 10:20 98 96 Nasal Cannula 1.0 12/07/16 08:00 Nasal Cannula 2.0 12/07/16 07:47 106 18 95 Nasal Cannula 2.0 12/07/16 07:42 36.7 95 16 131/71 100 Nasal Cannula 2.0 12/07/16 04:10 37.1 104 20 119/69 99 Nasal Cannula 2.0 12/07/16 00:50 Nasal Cannula 2.0 12/06/16 23:36 37.0 110 16 122/76 99 2.0 12/06/16 19:12 36.9 111 18 132/82 98 2.0 12/06/16 19:01 112 20 98 Nasal Cannula 4.0 12/06/16 18:08 37.1 106 18 132/75 100 2.0 12/06/16 17:40 37.1 112 18 134/85 96 2.0 12/06/16 17:25 36.7 103 18 129/73 97 2.0 12/06/16 17:08 36.9 110 18 122/65 100 2.5 12/06/16 16:46 37.1 109 18 118/73 99 2.0 12/06/16 16:00 37.2 113 18 124/71 99 12/06/16 16:00 Nasal Cannula 2.0 12/06/16 15:45 37.6 111 18 120/65 98 Nasal Cannula 2.0 12/06/16 15:30 108 20 92 Nasal Cannula 2.0 12/06/16 15:30 36.9 114 18 127/54 94 12/06/16 15:00 37.6 111 18 120/65 98 2.0 12/06/16 14:45 37.4 112 18 117/71 12/06/16 14:31 37.1 112 18 129/75 12/06/16 14:30 37.1 112 18 129/75 12/06/16 12:12 113 95 12/06/16 11:31 37.2 101 20 100 2.0 12/06/16 11:25 37.2 101 20 112/65 100 30.0 12/06/16 11:13 112 20 91 Nasal Cannula 2.0 (Jyoti Lucia PA-C) Physical Exam General Appearance: no apparent distress Eyes: normal inspection, PERRL ENT: hearing grossly normal Neck: supple Respiratory/Chest: lungs clear, no respiratory distress, no accessory muscle use Cardiovascular: regular rate, rhythm Abdomen: normal bowel sounds, non tender, soft Extremities: no pedal edema, no calf tenderness Neurologic/Psychiatric: alert, normal mood/affect, oriented x 3 Skin: normal color, warm/dry, no rash (Jyoti Lucia PA-C) Laboratory Results Last 24 Hours Test 12/06/16 20:37 12/07/16 04:14 Hemoglobin 8.8 g/dL 9.1 g/dL Hematocrit 26.3 % 27.4 % White Blood Count 0.67 K/uL Red Blood Count 3.06 M/uL Mean Corpuscular Volume 89.5 fL Mean Corpuscular Hemoglobin 29.7 pg Mean Corpuscular Hemoglobin Concent 33.2 g/dl Platelet Count 34 K/uL Mean Platelet Volume 10.4 fL RDW Standard Deviation 52.1 fL RDW Coefficient of Variation 16.0 % Neutrophils % (Manual) 11.7 % Lymphocytes % (Manual) 52.0 % Monocytes % (Manual) 16.4 % Eosinophils % (Manual) 17.0 % Basophils % (Manual) 2.9 % Neutrophils # (Manual) 0.08 K/uL Total Absolute Neutrophils 0.08 K/uL Lymphocytes # (Manual) 0.35 K/uL Total Absolute Lymphocytes 0.35 K/uL Monocytes # (Manual) 0.11 K/uL Eosinophils # (Manual) 0.11 K/uL Basophils # (Manual) 0.02 K/uL Toxic Granulation 2+ Toxic Vacuolation 2+ Dohle Bodies 2+ Platelet Estimate SIGNIFIC DECREASED Large Platelets 2+ Sodium Level 141 mmol/L Potassium Level 4.1 mmol/L Chloride Level 110 mmol/L Carbon Dioxide Level 26 mmol/L Anion Gap 5.0 mmol/L Blood Urea Nitrogen 14 mg/dl Creatinine 1.10 mg/dl Est Creatinine Clear Calc Drug Dose 47.5 ml/min Estimated GFR () 76.8 Estimated GFR (Non- 66.2 BUN/Creatinine Ratio 12.7 Random Glucose 104 mg/dl Calcium Level 8.2 mg/dl Magnesium Level 1.5 mg/dl Vancomycin Level Trough 10.4 mcg/ml (Jyoti Lucia, ANDRADEC) Assessment and Plan 71 year old male 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 Last received G-CSF on Sunday Neutropenic sepsis (source pneumonia) - neutropenia secondary to chemotherapy: - Admit to tele for cardiac monitoring -- Transfer to med/surg on 12/06- no acute events, sinus tachy w/ activity noted, likely due to infectious process - Neutropenic precautions - IVF @ 100 ml/hr x4 bags - Cefepime IV + Vancomycin until remains afebrile and counts improve -- d/c Vancomycin due to MRSA swab negative; start IV Levaquin due to no improvement in symptoms (12/06) - MRSA nasal swab- negative - BCx NGTD - UA- negative - DuoNebs QID and PRN - Robitussin for cough - Flutter valve + incentive spirometry - Consult hem/oncology, appreciate recommendations -- No Neupogen at this time. Patient received Neulasta on 11/29 Melena w/ worsening anemia: - hgb 6.9 on 12/06 -- Consent obtained; type and cross; transfuse 2 u PRBC on 12/06 - Follow H&H- STABLE - IV Protonix BID - If hgb continues to worsen, will consult GI for ?scope- no consult at this time due to current PNA and low probability GI will want to proceed procedure with current health state. - Continue Iron supplement Thrombocytopenia, secondary to chemotherapy vs infection- IMPROVING: Follow CBC Pancytopenia due to chemotherapy: - Neulasta on 11/29 - Follow CBC w/ diff COPD w/out exacerbation: - DuoNebs QID + Q2H PRN Oral thrush: Nystatin swish and swallow 5ml QID Elevated troponin - in setting of tachycardia, no ischemic changes on EKG: - Trend cardiac enzymes- peak trop 0.374 Hypomagnesemia: - Treated w/ IV mag at admission due to mag of 1.4 -- On 12/06, mag level of 1.7- start mag-ox supplement BID -- d/c PO supplement; IV Mag on 12/07 due to mag level of 1.5 - Follow mag level Hypertension: Continue HCTZ, Lisinopril, and Metoprolol HDL: Continue Simvastatin GI Prophylaxis: Protonix BID DVT Prophylaxis: Chemical means contraindicated due to thrombocytopenia and worsening anemia; Ambulation Code Status: LEVEL V, DNR Disposition: - From home, lives w/ - PT recommendations; OK to return home w/ family support (Jyoti Lucia ., PA-C) PA Physician Supervision Note: I interviewed and examined the patient. Discussed with Jyoti Cervantes PAC and agree with findings and plan as documented in the note. Any exceptions or clarifications are listed here: None Pt feels much better since transfusion, less melena vitals stable car regular lungs clear abdomen is non tender Neutropenic fever and gram negative pneumonia, levaquin Cefepime Neutropenia, no new GCSF per oncology anemia, maybe acute blood loss with drastic drop in hgb, bid ppi, cannot endoscope due to pneumonia preventing anesthesia, will only scope if urgent, hgb seems stable and melena is lessening Documented By: Andrea Rubio (Andrea Rubio M.D.)
[2016-12-07] MEDS: LEVOFLOXACIN / D5W 750 MG in PREMIXED IN D5W 150 ML IV SCH (20:36)
[2016-12-08] VITALS (10 sets, daily range): BP systolic 115–138; BP diastolic 68–81; PULSE 102–123; TEMP 36.7–37; O2SAT 92–95
[2016-12-08 06:19] LABS: BUN/CREATININE RATIO 11.1 (10-20); CALCIUM 8.7 mg/dl (8.5-10.1); CREATININE 1.2 mg/dl (0.60-1.40); MAGNESIUM 1.4 mg/dl (1.8-2.4); POTASSIUM 3.7 mmol/L (3.5-5.1)
[2016-12-08 07:06] LABS: HEMATOCRIT 31.8 % (42-52); MEAN CELL VOLUME 89.1 fL (80-100); MEAN CORPUSCULAR HEMOGLOBIN 28.6 pg (25-34); MEAN CORPUSCULAR HGB CONC 32.1 g/dl (32-36); PLATELET COUNT 50 K/uL (130-400); RED BLOOD COUNT 3.57 M/uL (4.7-6.1); WHITE BLOOD COUNT 1.77 K/uL (4.8-10.8)
[2016-12-08 07:07] LABS: LARGE PLATELETS 1+; PLT ESTIMATE DECREASED; TOXIC GRANULATION 2+
[2016-12-08 07:16] LABS: COMPLETE YES; EOSINOPHIL % 18.6 %; LYMPH ABS # 0.85 K/uL (1.2-3.4); LYMPHOCYTE % 47.8 %
[2016-12-08] MEDS: ALBUT/IPRATROP 3MG/0.5MG NEB 3 ML VIAL INH SCH ×4 (07:32→19:09)
[2016-12-08] MEDS: HYDROCHLOROTHIAZIDE 25 MG TAB PO SCH (07:50)
[2016-12-08] MEDS: METOPROLOL TARTRATE 25 MG TAB PO SCH ×2 (07:50→20:17)
[2016-12-08] MEDS: NYSTATIN SUSP 500,000 U/5 ML UDC PO SCH ×4 (07:51→20:17)
[2016-12-08] MEDS: SIMVASTATIN 20 MG TAB PO SCH (07:51)
[2016-12-08] MEDS: ASCORBIC ACID 500 MG TAB PO SCH (07:51)
[2016-12-08] MEDS: LISINOPRIL 20 MG TAB PO SCH (07:51)
[2016-12-08] MEDS: CEFEPIME IV SCH ×2 (07:51→20:17)
[2016-12-08] MEDS: DEXTROSE 5% IV SCH ×2 (07:51→20:17)
[2016-12-08] MEDS: FERROUS SULFATE 325 MG TAB PO SCH (07:51)
[2016-12-08] MEDS: BOOST PLUS VANILLA PO SCH ×4 (08:29→16:47)
[2016-12-08] MEDS: PANTOprazole INJ 40 MG in SYRINGE 0 ML IV SCH ×2 (08:30→20:17)
[2016-12-08] MEDS: MAGNESIUM SULFATE 1GM / D5W 1 GM in PREMIXED IN D5W 100 ML IV SCH ×3 (08:57→11:00)
--- NOTE | 2016-12-08 10:39 | Hospitalist Progress Note ---
Hospitalist Progress Note Date of Service December 08, 2016. (Jyoti Lucia ., SEBASTIÁN) Subjective Pt evaluation today including: conversation w/ patient, physical exam, chart review, lab review, review of inpatient medication list Voiding: no voiding problems, no incontinence Patient states he is feeling well this AM. Cough continues to improve; sputum clear/white. He is eating and drinking OK. Patient denies any fever, chills, sweats, lightheadedness, dizziness, vision changes, CP, palpitations, edema, SOB , wheezing, cough, abdominal pain, nausea, vomiting, diarrhea, urinary symptoms , melena, numbness/tingling, weakness, muscle/joint pain, anxiety/depression, active bleeding, or new skin discoloration/changes. (Jyoti Lucia ., ANDRADEC) Medications Current Inpatient Medications Medications (Trade) Dose Ordered Sig/Sigrid Route Start Time Stop Time Status Last Admin Dose Admin Cefepime HCl/ Dextrose (Maxipime IV/D5 50ml) 62.5 ml @ 100 mls/hr Q12@0800,2000 IV 12/05/16 08:00 12/11/16 19:59 12/08/16 07:51 100 MLS/HR Miscellaneous Information (Pharmacy Consult) 1 ea UD PRN N/A 12/04/16 20:45 01/03/17 20:44 Acetaminophen (Tylenol Tab) 650 mg Q4H PRN PO 12/04/16 20:45 01/03/17 20:44 12/05/16 23:50 650 MG Ondansetron HCl (Zofran Inj) 4 mg Q6H PRN IV 12/04/16 20:45 01/03/17 20:44 Ascorbic Acid (Vitamin C Tab) 500 mg QAM PO 12/05/16 09:00 01/04/17 08:59 12/08/16 07:51 500 MG Ferrous Sulfate (Feosol Tab) 325 mg QAM PO 12/05/16 09:00 01/04/17 08:59 12/08/16 07:51 325 MG Folic Acid (Folvite Tab) 1 mg QAM PO 12/05/16 09:00 01/04/17 08:59 12/08/16 07:51 1 MG Hydrochlorothiazide (Hydrochlorothiazide Tab) 25 mg QAM PO 12/05/16 09:00 01/04/17 08:59 12/08/16 07:50 25 MG Lisinopril (Zestril Tab) 20 mg QAM PO 12/05/16 09:00 01/04/17 08:59 12/08/16 07:51 20 MG Metoprolol Tartrate (Lopressor Tab) 25 mg BID PO 12/05/16 09:00 01/04/17 08:59 12/08/16 07:50 25 MG Nitroglycerin (Nitrostat Tab) 0.4 mg UD PRN UT 12/04/16 22:00 01/03/17 21:59 Simvastatin (Zocor Tab) 20 mg QAM PO 12/05/16 09:00 01/04/17 08:59 12/08/16 07:51 20 MG Nystatin (Mycostatin Susp) 5 ml QID PO 12/05/16 09:00 12/15/16 08:59 12/08/16 07:51 5 ML Albuterol/ Ipratropium (Duoneb) 3 ml QIDR INH 12/05/16 08:00 01/04/17 07:59 12/08/16 07:32 3 ML Heparin Sodium (Porcine) (Heparin 100 Unit/ml 5ml Flush) 5 ml PRN PRN IV 12/05/16 01:45 01/04/17 01:44 12/08/16 05:25 5 ML Codeine Phosphate/ Guaifenesin 10 ml 10 ml Q6H PRN PO 12/05/16 13:15 01/04/17 13:14 12/05/16 20:18 10 ML Pantoprazole Sodium 40 mg/ Syringe 10 ml @ 5 mls/min DAILY@09,21 IV 12/06/16 21:00 01/05/17 20:59 12/08/16 08:30 5 MLS/MIN Levofloxacin/Prmx (Levaquin / D5W/ Premixed D5W) 150 ml @ 100 mls/hr Q24H IV 12/06/16 13:00 12/13/16 12:59 12/07/16 20:36 100 MLS/HR Levofloxacin (Consult) 1 ea UD PRN N/A 12/06/16 12:45 01/05/17 12:44 Enteral Nutritional Formula (Boost Plus Vanilla) 1 can BIDM PO 12/06/16 17:00 01/05/17 16:59 12/08/16 08:29 1 CAN (Jyoti Lucia PA-C) Objective Vital Signs Date Time Temp Pulse Resp B/P Pulse Ox O2 Delivery O2 Flow Rate FiO2 12/08/16 08:00 Room Air 12/08/16 07:32 102 18 92 Room Air 12/08/16 07:19 36.8 115 20 115/68 95 Room Air 12/08/16 06:17 110 95 Room Air 12/08/16 04:03 37.0 121 20 138/81 92 Room Air 12/08/16 01:00 Room Air 12/07/16 23:54 36.6 116 20 138/77 93 Room Air 12/07/16 20:17 36.8 121 18 120/81 91 Room Air 12/07/16 16:00 93 Room Air 1.0 12/07/16 15:21 96 18 93 Room Air 12/07/16 14:40 36.8 110 18 114/68 92 Room Air 12/07/16 11:30 36.7 98 16 119/71 93 Room Air 12/07/16 11:19 102 18 92 Room Air (Jyoti Lucia, JOSELUIS-C) Physical Exam General Appearance: no apparent distress Eyes: normal inspection, PERRL ENT: hearing grossly normal Neck: supple Respiratory/Chest: no respiratory distress, no accessory muscle use, + crackles (bilateral lung bases ) Cardiovascular: regular rate, rhythm Abdomen: normal bowel sounds, non tender, soft Extremities: no pedal edema, no calf tenderness Neurologic/Psychiatric: alert, normal mood/affect, oriented x 3 Skin: normal color, warm/dry, no rash (Jyoti Lucia, JOSELUIS-C) Laboratory Results Last 24 Hours Test 12/08/16 05:30 White Blood Count 1.77 K/uL Red Blood Count 3.57 M/uL Hemoglobin 10.2 g/dL Hematocrit 31.8 % Mean Corpuscular Volume 89.1 fL Mean Corpuscular Hemoglobin 28.6 pg Mean Corpuscular Hemoglobin Concent 32.1 g/dl Platelet Count 50 K/uL RDW Standard Deviation 50.1 fL RDW Coefficient of Variation 15.5 % Neutrophils % (Manual) 23.0 % Lymphocytes % (Manual) 47.8 % Monocytes % (Manual) 10.6 % Eosinophils % (Manual) 18.6 % Neutrophils # (Manual) 0.41 K/uL Total Absolute Neutrophils 0.41 K/uL Lymphocytes # (Manual) 0.85 K/uL Total Absolute Lymphocytes 0.85 K/uL Monocytes # (Manual) 0.19 K/uL Eosinophils # (Manual) 0.33 K/uL Toxic Granulation 2+ Platelet Estimate DECREASED Large Platelets 1+ Sodium Level 142 mmol/L Potassium Level 3.7 mmol/L Chloride Level 107 mmol/L Carbon Dioxide Level 26 mmol/L Anion Gap 9.0 mmol/L Blood Urea Nitrogen 13 mg/dl Creatinine 1.20 mg/dl Est Creatinine Clear Calc Drug Dose 44.0 ml/min Estimated GFR () 69.1 Estimated GFR (Non- 59.6 BUN/Creatinine Ratio 11.1 Random Glucose 101 mg/dl Calcium Level 8.7 mg/dl Magnesium Level 1.4 mg/dl (Jyoti Lucia, PA-C) Assessment and Plan 71 year old male 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 Last received G-CSF on Sunday Neutropenic sepsis (source pneumonia) - neutropenia secondary to chemotherapy: - Admit to tele for cardiac monitoring -- Transfer to med/surg on 12/06- no acute events, sinus tachy w/ activity noted, likely due to infectious process - Neutropenic precautions - IVF @ 100 ml/hr x4 bags - Cefepime IV + Vancomycin until remains afebrile and counts improve -- d/c Vancomycin due to MRSA swab negative; start IV Levaquin due to no improvement in symptoms (12/06) - MRSA nasal swab- negative - BCx NGTD - UA- negative - DuoNebs QID and PRN - Robitussin for cough - Flutter valve + incentive spirometry - Consult hem/oncology, appreciate recommendations -- No Neupogen at this time. Patient received Neulasta on 11/29 Melena w/ worsening anemia- RESOLVING: - hgb 6.9 on 12/06 -- Consent obtained; type and cross; transfuse 2 u PRBC on 12/06 - Follow H&H- STABLE - IV Protonix BID - If hgb continues to worsen, will consult GI for ?scope- no consult at this time due to current PNA and low probability GI will want to proceed procedure with current health state. - Continue Iron supplement Thrombocytopenia, secondary to chemotherapy vs infection- IMPROVING: Follow CBC Pancytopenia due to chemotherapy: - Neulasta on 11/29 - Follow CBC w/ diff COPD w/out exacerbation: - DuoNebs QID + Q2H PRN Oral thrush: Nystatin swish and swallow 5ml QID Elevated troponin - in setting of tachycardia, no ischemic changes on EKG: - Trend cardiac enzymes- peak trop 0.374 Hypomagnesemia: - Treated w/ IV mag at admission due to mag of 1.4 -- On 12/06, mag level of 1.7- start mag-ox supplement BID -- d/c PO supplement; IV Mag on 12/07 due to mag level of 1.5 -- Mag 1.4 on 12/08; treated w/ IV Mag x2 doses - Follow mag level and replace PRN Hypertension: Continue HCTZ, Lisinopril, and Metoprolol HDL: Continue Simvastatin GI Prophylaxis: Protonix BID DVT Prophylaxis: Chemical means contraindicated due to thrombocytopenia and worsening anemia; Ambulation Code Status: LEVEL V, DNR Disposition: Discharge to home once counts improve and IV antibiotics can be d/c 'd; hopefully within the next few days - From home, lives w/ - PT recommendations; OK to return home w/ family support (Jyoti Lucia ., PA-C) PA Physician Supervision Note: I interviewed and examined the patient. Discussed with Jyoti AN and agree with findings and plan as documented in the note. Any exceptions or clarifications are listed here: None Pt continues to feel better, no melena, less tired vitals stable car regular lungs clear abdomen continues to be non tender Neutropenic fever and gram negative pneumonia, levaquin Cefepime will not completely clear until wbc restores Neutropenia, no new GCSF per oncology anemia, acute blood loss with drastic drop in hgb, bid ppi, cannot endoscope due to pneumonia preventing anesthesia, no need for urgent scope as hgb seems stable and melena is lessening Documented By: Andrea Rubio (Andrea Rubio M.D.)
--- NOTE | 2016-12-08 13:16 | Hematology/Oncology Prog Note ---
Hematology/Onc Progress Note Date of Service December 08, 2016. Diagnoses Mantle cell lymphoma Neutropenic fever Medications Medications Administered Medications (Trade) Dose Ordered Sig/Sigrid Route Start Time Stop Time Status Last Admin Dose Admin Sodium Chloride (Nss 1000ml) 1,000 ml @ 999 mls/hr Q1H1M ONCE IV 12/04/16 18:35 12/04/16 19:35 DC 12/04/16 18:35 999 MLS/HR Acetaminophen (Tylenol Tab) 1,000 mg NOW STAT PO 12/04/16 18:35 12/04/16 18:37 DC 12/04/16 19:35 1,000 MG Albuterol/ Ipratropium 3 ml 3 ml NOW STAT INH 12/04/16 18:36 12/04/16 18:37 DC 12/04/16 18:36 3 ML Cefepime HCl/ Dextrose (Maxipime IV/D5 100ml) 122.6 ml @ 200 mls/hr NOW STAT IV 12/04/16 19:20 12/04/16 19:56 DC 12/04/16 20:06 200 MLS/HR Magnesium Sulfate 1 gm 1 gm NOW STAT IV 12/04/16 19:59 12/04/16 20:00 DC 12/04/16 20:45 1 GM Sodium Chloride 1,000 ml @ 999 mls/hr Q1H1M STAT IV 12/04/16 20:28 12/04/16 21:28 DC 12/04/16 20:28 999 MLS/HR Cefepime HCl/ Dextrose (Maxipime IV/D5 50ml) 62.5 ml @ 100 mls/hr Q12@0800,2000 IV 12/05/16 08:00 12/11/16 19:59 12/08/16 07:51 100 MLS/HR Acetaminophen (Tylenol Tab) 650 mg Q4H PRN PO 12/04/16 20:45 01/03/17 20:44 12/05/16 23:50 650 MG Ascorbic Acid (Vitamin C Tab) 500 mg QAM PO 12/05/16 09:00 01/04/17 08:59 12/08/16 07:51 500 MG Ferrous Sulfate (Feosol Tab) 325 mg QAM PO 12/05/16 09:00 01/04/17 08:59 12/08/16 07:51 325 MG Folic Acid (Folvite Tab) 1 mg QAM PO 12/05/16 09:00 01/04/17 08:59 12/08/16 07:51 1 MG Hydrochlorothiazide (Hydrochlorothiazide Tab) 25 mg QAM PO 12/05/16 09:00 01/04/17 08:59 12/08/16 07:50 25 MG Lisinopril (Zestril Tab) 20 mg QAM PO 12/05/16 09:00 01/04/17 08:59 12/08/16 07:51 20 MG Metoprolol Tartrate (Lopressor Tab) 25 mg BID PO 12/05/16 09:00 01/04/17 08:59 12/08/16 07:50 25 MG Simvastatin (Zocor Tab) 20 mg QAM PO 12/05/16 09:00 01/04/17 08:59 12/08/16 07:51 20 MG Pantoprazole Sodium (Protonix Tab) 40 mg QAM PO 12/05/16 09:00 12/06/16 12:34 DC 12/06/16 08:24 40 MG Nystatin (Mycostatin Susp) 5 ml QID PO 12/05/16 09:00 12/15/16 08:59 12/08/16 12:06 5 ML Nystatin (Mycostatin Susp) 5 ml 2152 ONCE PO 12/04/16 21:52 12/04/16 22:56 DC 12/05/16 00:02 5 ML Albuterol/ Ipratropium 3 ml 3 ml QIDR INH 12/05/16 08:00 01/04/17 07:59 12/08/16 11:24 3 ML Vancomycin HCl 1450 mg/Sodium Chloride 529 ml @ 200 mls/hr 2230 ONCE IV 12/04/16 22:30 12/05/16 01:08 DC 12/04/16 22:40 200 MLS/HR Sodium Chloride (Nss 1000ml) 1,000 ml @ 100 mls/hr Q10H IV 12/04/16 23:45 12/06/16 11:40 DC 12/06/16 06:14 100 MLS/HR Metoprolol Tartrate (Lopressor Tab) 25 mg NOW STAT PO 12/05/16 01:28 12/05/16 01:29 DC 12/05/16 01:35 25 MG Heparin Sodium (Porcine) (Heparin 100 Unit/ml 5ml Flush) 5 ml PRN PRN IV 12/05/16 01:45 01/04/17 01:44 12/08/16 12:26 5 ML Ketorolac Tromethamine 15 mg 15 mg NOW STAT IV. 12/05/16 03:06 12/05/16 03:07 DC 12/05/16 03:11 15 MG Vancomycin HCl/ Sodium Chloride (Vancomycin Inj/ Nss 250ml) 265 ml @ 125 mls/hr Q18H IV 12/05/16 16:30 12/07/16 07:10 DC 12/07/16 04:20 125 MLS/HR Codeine Phosphate/ Guaifenesin (Robitussin-AC Sugar Free Syrup) 10 ml Q6H PRN PO 12/05/16 13:15 01/04/17 13:14 12/05/16 20:18 10 ML Magnesium Oxide 400 mg 400 mg BID PO 12/06/16 20:00 12/07/16 07:36 DC 12/06/16 20:45 400 MG Pantoprazole Sodium 40 mg/ Syringe 10 ml @ 5 mls/min DAILY@09,21 IV 12/06/16 21:00 01/05/17 20:59 12/08/16 08:30 5 MLS/MIN Levofloxacin/Prmx (Levaquin / D5W/ Premixed D5W) 150 ml @ 100 mls/hr Q24H IV 12/06/16 13:00 12/13/16 12:59 12/07/16 20:36 100 MLS/HR Enteral Nutritional Formula 1 can 1 can BIDM PO 12/06/16 17:00 01/05/17 16:59 12/08/16 08:29 1 CAN Magnesium Sulfate 1 gm/Prmx 100 ml @ 100 mls/hr NOW ONCE IV 12/07/16 07:30 12/07/16 08:29 DC 12/07/16 07:46 100 MLS/HR Magnesium Sulfate/ Prmx (Magnesium Sulfate/Premixed D5W) 100 ml @ 100 mls/hr TODAY@0800,0900 IV 12/08/16 08:00 12/08/16 09:59 DC 12/08/16 11:00 100 MLS/HR Subjective Mr. Pink looks and feels better. He remains afebrile and has no localizing signs or symptoms of an infection. Review of Systems: Constitutional: No chills, No fever ENT: No nasal symptoms, No sore throat Respiratory: No cough, No shortness of breath Cardiovascular: No chest pain Abdomen: No diarrhea, No nausea, No pain Male : No dysuria, No urinary frequency Heme: No night sweats Skin: No rash Vital Signs Vital Signs Past 12 Hours Date Time Temp Pulse Resp B/P Pulse Ox O2 Delivery O2 Flow Rate FiO2 12/08/16 11:24 111 18 92 Room Air 12/08/16 11:22 36.7 109 16 122/79 93 Room Air 12/08/16 08:00 Room Air 12/08/16 07:32 102 18 92 Room Air 12/08/16 07:19 36.8 115 20 115/68 95 Room Air 12/08/16 06:17 110 95 Room Air 12/08/16 04:03 37.0 121 20 138/81 92 Room Air Physical Exam Constitutional: Level of Distress: NAD, chronically ill Psychiatric: Mental Status: active & alert Orientation: oriented except where noted Lungs: Respiratory Effort: no dyspnea Auscuitation: breath sounds normal Cardiovascular: Heart Auscultation: RRR, no murmurs Abdomen: Inspection & Palpation: soft, no tenderness, guarding & rebound Extremities: no edema Laboratory Last 24 Hours Test 12/08/16 05:30 White Blood Count 1.77 K/uL Red Blood Count 3.57 M/uL Hemoglobin 10.2 g/dL Hematocrit 31.8 % Mean Corpuscular Volume 89.1 fL Mean Corpuscular Hemoglobin 28.6 pg Mean Corpuscular Hemoglobin Concent 32.1 g/dl Platelet Count 50 K/uL RDW Standard Deviation 50.1 fL RDW Coefficient of Variation 15.5 % Neutrophils % (Manual) 23.0 % Lymphocytes % (Manual) 47.8 % Monocytes % (Manual) 10.6 % Eosinophils % (Manual) 18.6 % Neutrophils # (Manual) 0.41 K/uL Total Absolute Neutrophils 0.41 K/uL Lymphocytes # (Manual) 0.85 K/uL Total Absolute Lymphocytes 0.85 K/uL Monocytes # (Manual) 0.19 K/uL Eosinophils # (Manual) 0.33 K/uL Toxic Granulation 2+ Platelet Estimate DECREASED Large Platelets 1+ Sodium Level 142 mmol/L Potassium Level 3.7 mmol/L Chloride Level 107 mmol/L Carbon Dioxide Level 26 mmol/L Anion Gap 9.0 mmol/L Blood Urea Nitrogen 13 mg/dl Creatinine 1.20 mg/dl Est Creatinine Clear Calc Drug Dose 44.0 ml/min Estimated GFR () 69.1 Estimated GFR (Non- 59.6 BUN/Creatinine Ratio 11.1 Random Glucose 101 mg/dl Calcium Level 8.7 mg/dl Magnesium Level 1.4 mg/dl Assessment & Plan His counts are recovering. His ANC is still low, but given the recovery in his total WBC count, his neutropenia should resolve in the next day or two. He has been afebrile for 48 hours. He remains on antibiotics for a possible pneumonia by CXR. Once his counts recover, he can be discharged to complete a course of oral antibiotics. He is finished with his chemotherapy and has a return visit scheduled in late December. However, I will schedule a shorter-term post-hospital follow up.
[2016-12-08] MEDS: LEVOFLOXACIN / D5W 750 MG in PREMIXED IN D5W 150 ML IV SCH (20:17)
[2016-12-09 00:24] VITALS: BP 130/69; PULSE 118; TEMP 37.1; O2SAT 91
[2016-12-09] MEDS ORDERED: ZOLPIDEM TARTRATE 5 MG TAB PO PRN (02:45)
[2016-12-09 04:06] VITALS: BP 129/79; PULSE 100; TEMP 36.9; O2SAT 90
[2016-12-09 06:30] LABS: HEMATOCRIT 30.8 % (42-52); MEAN CELL VOLUME 89.8 fL (80-100); MEAN CORPUSCULAR HEMOGLOBIN 29.7 pg (25-34); MEAN CORPUSCULAR HGB CONC 33.1 g/dl (32-36); RED BLOOD COUNT 3.43 M/uL (4.7-6.1); WHITE BLOOD COUNT 3.94 K/uL (4.8-10.8)
[2016-12-09 06:40] LABS: MEAN PLATELET VOLUME 10.5 fL (7.4-10.4); PLATELET COUNT 72 K/uL (130-400)
[2016-12-09 07:01] LABS: COMPLETE YES; DOHLE BODIES 2+; EOSINOPHIL % 6.1 %; GIANT PLATELETS 2+; LYMPH ABS # 0.97 K/uL (1.2-3.4); LYMPHOCYTE % 24.6 %; MYELOCYTE % 0.9 %; NEUTROPHILS % 56.1 %; TOXIC GRANULATION 3+
[2016-12-09 07:24] VITALS: BP 126/80; PULSE 109; TEMP 36.8; O2SAT 92
[2016-12-09] MEDS: LISINOPRIL 20 MG TAB PO SCH (07:39)
[2016-12-09] MEDS: HYDROCHLOROTHIAZIDE 25 MG TAB PO SCH (07:39)
[2016-12-09] MEDS: METOPROLOL TARTRATE 25 MG TAB PO SCH (07:39)
[2016-12-09] MEDS: ASCORBIC ACID 500 MG TAB PO SCH (07:39)
[2016-12-09] MEDS: SIMVASTATIN 20 MG TAB PO SCH (07:39)
[2016-12-09] MEDS: NYSTATIN SUSP 500,000 U/5 ML UDC PO SCH ×2 (07:39→12:00)
[2016-12-09] MEDS: FERROUS SULFATE 325 MG TAB PO SCH (07:39)
[2016-12-09] MEDS: DEXTROSE 5% IV SCH (07:47)
[2016-12-09] MEDS: CEFEPIME IV SCH (07:47)
[2016-12-09] MEDS ORDERED: DOXY-300 PO (08:02)
--- NOTE | 2016-12-09 08:03 | Discharge Instructions ---
Discharge Instructions Date of Service December 09, 2016. Admission Reason for Admission: Neutropenic Fever, Pneumonia,Sepsis Discharge Discharge Diagnosis / Problem: chemotherapy induced pancytopenia, pneumonia Discharge Goals Goal(s): Diagnostic testing, Therapeutic intervention Activity Recommendations Activity Limitations: resume your previous activity . Current Hospital Diet Patient's current hospital diet: Regular Diet Discharge Diet Recommended Diet: Regular Diet Pending Studies Studies pending at discharge: no Medical Emergencies . Who to Call and When: Medical Emergencies: If at any time you feel your situation is an emergency, please call 911 immediately. . Non-Emergent Contact Non-Emergency issues call your: Oncologist Call Non-Emergent contact if: temperature is above 101, your pain is unusual for you . . "Provider Documentation" section prepared by Andrea Rubio. . VTE Core Measure Inpt VTE Proph given/why not?: Contraindicated (Thrombocytopenia)
[2016-12-09] MEDS: ALBUT/IPRATROP 3MG/0.5MG NEB 3 ML VIAL INH SCH (08:28)
[2016-12-09 08:29] VITALS: PULSE 108; O2SAT 92
[2016-12-09] MEDS: BOOST PLUS VANILLA PO SCH ×2 (08:40)
[2016-12-09] MEDS: PANTOprazole INJ 40 MG in SYRINGE 0 ML IV SCH (08:40)
[2016-12-09] MEDS: MAGNESIUM SULFATE 1GM / D5W 1 GM in PREMIXED IN D5W 100 ML IV SCH ×2 (08:44→09:52)
[2016-12-09 10:52] VITALS: BP 126/80; PULSE 108; TEMP 36.8; O2SAT 92
[2016-12-09 11:26] VITALS: BP 125/70; PULSE 107; TEMP 36.6; O2SAT 97
[2016-12-09] MEDS ORDERED: OMEP20CA9 PO (16:36)
--- NOTE | 2016-12-09 16:36 | Discharge Summary ---
Discharge Summary Date of Service December 09, 2016. Discharge Summary Admission Date: December 04, 2016 at 20:44 Discharge Date: December 09, 2016 Discharge Disposition: Home Principal Diagnosis: pneumonia, chemotherapy assocated pancytopenia Consultations: Dr Kwong Medication Reconciliation New Medications: Doxycycline (Monohydrate) (Doxycycline) 100 Mg Cap 100 MG PO BID, #18 DOSE Changed Medications: Omeprazole (Prilosec) 20 Mg Cap 20 MG PO BID, #60 DOSE 7 Refills (Changed from: QAM; Refills: ) Continued Medications: Ascorbic Acid (Vitamin C) 500 Mg Tab 500 MG PO QAM Aspirin (Aspirin Ec) 81 Mg Tab 81 MG PO QAM Enteral Nutrition Formula (Ensure Plus Vanilla) 1 Can Liqd 1 CAN PO BID, CAN Ferrous Sulfate (Ferrous Sulfate) 325 Mg Tab 325 MG PO QAM Folic Acid (Folvite) 1 Mg Tab 1 MG PO QAM, TAB Hydrochlorothiazide (Hctz) 25 Mg Tab 25 MG PO QAM, TAB Lisinopril (Zestril) 20 Mg Tab 20 MG PO QAM, TAB Metoprolol Tartrate (Lopressor) (Lopressor) 25 Mg Tab 25 MG PO BID, TAB Mometasone Furoate-Formoterol (Dulera 200/5 Mcg) 1 Aer Aer 2 PUFFS INH BID PRN for SOB/Wheezing, GM Nitroglycerin (Nitrostat) 0.4 Mg Tab 0.4 MG UT UD PRN for Chest Pain, BTL PLACE ONE TABLET UNDER THE TONGUE EVERY 5 MINUTES FOR UP TO 3 DOSES IF NEEDED FOR CHEST PAIN Simvastatin (Zocor) 20 Mg Tab 20 MG PO QAM, TAB Discharge Exam Review of Systems: Constitutional: No chills, No fever, No weakness Respiratory: No cough, No sputum Abdomen: No constipation, No diarrhea, No nausea, No pain, No vomiting Physical Exam: General Appearance: WD/WN, no apparent distress Neck: supple, no JVD Respiratory/Chest: chest non-tender, lungs clear, normal breath sounds Cardiovascular: regular rate, rhythm, no murmur Abdomen / GI: normal bowel sounds, non tender, soft Extremities: no pedal edema, normal range of motion Neurologic/Psychiatric: alert, oriented x 3 Hospital Course 71 M treated for NHL, recent chemo and Neutropenic fever despite Neulasta, has infiltrate and cough Neutropenic fever and gram negative pneumonia, has resolution of symptoms and good anc 5/20 will send out on Doxycycine due to listed drug allergies Neutropenia, resolved anemia, acute blood loss with drastic drop in hgb, bid ppi, cannot endoscope due to pneumonia preventing anesthesia, no need for urgent scope as hgb seems stable and melena is lessening, likely influenced by pancytopenia home on omeprozole Documented By: Andrea Rubio Total Time Spent: Greater than 30 minutes This includes examination of the patient, discharge planning, medication reconciliation, and communication with other providers. Discharge Instructions Please refer to the electronic Patient Visit Report (Discharge Instructions) for additional information.
--- NOTE | 2016-12-13 07:24 | EDITING REQUIRED CODING QUERY ---
CODING QUERY To promote full compliance with coding requirements relating to patient care, provider participation is requested in all cases of freight adjuster uncertainty. Please assist us with the question(s) below: Coding Question(s): Dr. Rubio, Neutropenic sepsis is documented throughout the chart, but is not noted on the discharge summary. Please clarify if sepsis was: ( xx ) present and treated during this admission ( ) ruled out ( ) other, please explain Physician's Response(s): Thank you for your time, RENA Mims, DIE TESTER
== END 2016-12-09 12:43 | disposition home or self-care (01) | DRG 871 ==
LOC: ENRESERVTM → ENRESERVDT → C.EDB 18:26 → UNDOADMIN 20:44 → C.2T 20:44 → C.4E 12-06 13:52
PROVIDERS: ADMIT Hospitalist; ATTEND Hospitalist
DX: A41.9 Sepsis, unspecified organism (principal); J18.9 Pneumonia, unspecified organism; D61.810 Antineoplastic chemotherapy induced pancytopenia; J44.0 Chronic obstructive pulmonary disease with (acute) lower respiratory infection; D62 Acute posthemorrhagic anemia; C83.10 Mantle cell lymphoma, unspecified site; B37.0 Candidal stomatitis; K92.1 Melena; R11.0 Nausea; T45.1X5A Adverse effect of antineoplastic and immunosuppressive drugs, initial encounter; D70.9 Neutropenia, unspecified; R50.81 Fever presenting with conditions classified elsewhere; R77.8 Other specified abnormalities of plasma proteins; E83.42 Hypomagnesemia; I10 Essential (primary) hypertension; E78.5 Hyperlipidemia, unspecified; Z66 Do not resuscitate; Z87.891 Personal history of nicotine dependence; Z79.82 Long term (current) use of aspirin; Z79.899 Other long term (current) drug therapy; Z79.51 Long term (current) use of inhaled steroids

== ENCOUNTER 2020-10-25 12:39 | Inpatient (IN) ==
[2020-10-25] MEDS ORDERED: SODIUM CHLORIDE 0.9% 1000ML 1,000 ML IV SCH (13:15)
--- NOTE | 2020-10-25 13:21 | XRay Report ---
SINGLE VIEW CHEST CLINICAL HISTORY: Sepsis. FINDINGS: 2 AP, portable, upright chest radiographs are compared to study dated 08/28/2019 and correlat ed with chest CT dated 08/06/2020. The examination is degraded by portable technique and apical lordot ic positioning. The a left subclavian central venous infusion port is unchanged in position. The hear t is enlarged noting atherosclerotic calcification of the thoracic aorta. The pulmonary vasculature i s noncongested. Emphysema and chronic interstitial thickening is similar to previous. Trace pleural e ffusions are suspected. No airspace consolidation is seen typical for pneumonia. A calcified granulom a is noted in the right lower lobe. Scarring/atelectasis is present at the lung bases. No pneumothora x is seen. The skeletal structures are osteopenic. The bony thorax is grossly intact. IMPRESSION: 1. Cardiomegaly and emphysema. 2. Suspect trace pleural effusions. ACT 112: Negative or not required by law. Electronically signed by: Vipul Mariee M.D. 10/25/2020 1:20 PM
[2020-10-25 14:00] LABS: Basophils # (auto) 0.01 K/uL (0-0.2); Basophils % (auto) 0.2 %; Eosinophils # (auto) 0.25 K/uL (0-0.5); Eosinophils % (auto) 4.4 %; Hematocrit (blood only) 44.1 % (42-52); Hemoglobin 14.5 g/dL (14.0-18.0); Immature Granulocytes # (auto) 0.01 K/uL (0.00-0.02); Immature Granulocytes % (auto) 0.2 %; Lymphocytes # (auto) 1.19 K/uL (1.2-3.4); Lymphocytes % (auto) 20.9 %; Mean Corpuscular Hemoglobin 27.6 pg (25-34); Mean Corpuscular Hgb Conc 32.9 g/dL (32-36); Mean Platelet Volume 10.2 fL (7.4-10.4); Monocytes # (auto) 0.44 K/uL (0.11-0.59); Monocytes % (auto) 7.7 %; Neutrophils % (auto) 66.6 %; Platelet Count 146 K/uL (130-400); RDW Coefficient of Variation 17.1 % (11.5-14.5); RDW Standard Deviation 52.2 fL (36.4-46.3); Red Blood Count 5.25 M/uL (4.7-6.1)
[2020-10-25 14:01] LABS: Base Excess VBG 0 mEq/L; HCO3 VBG 27 mmol/L; PCO2 VBG 55 mmHg (38-50); PO2 VBG 31 mmHg; pH VBG 7.31 (7.36-7.41)
[2020-10-25 14:03] LABS: Oxygen Saturation VBG < 60.0 %
[2020-10-25 14:15] LABS: Albumin Level 2.7 gm/dl (3.4-5.0); BUN Creatinine Ratio 28.7 (10-20); Calcium 9.5 mg/dl (8.5-10.1); Creatinine Clr Calc Pharmacy 16.1 ml/min; Est GFR (African American) 20.2; Est GFR (Non-African American) 17.4; Magnesium 2.6 mg/dl (1.8-2.4); Potassium 5.4 mmol/L (3.5-5.1)
[2020-10-25 14:26] LABS: INR 1.3 (0.9-1.1); Partial Thromboplastin Time 27.6 Seconds (21.0-31.0); Prothrombin Time 13.1 Seconds (9.0-12.0)
[2020-10-25] MEDS ORDERED: CALCIUM GLUCONATE 10% 1,000 MG in SODIUM CHLORIDE 0.9% 50 ML IV STA (14:28)
[2020-10-25 14:29] LABS: D Dimer 15370 ug/L FEU (0-500)
[2020-10-25 14:35] LABS: Albumin Globulin Ratio 0.7 (0.9-2); Bilirubin,Total 0.7 mg/dl (0.2-1); Globulin 3.8 gm/dl (2.5-4.0); Total Protein 6.5 gm/dl (6.4-8.2); Troponin I 0.602 ng/ml (0-0.045)
--- NOTE | 2020-10-25 15:00 | Electrocardiogram Report ---
Test Reason : Blood Pressure : / mmHG Vent. Rate : 062 BPM Atrial Rate : 062 BPM P-R Int : 196 ms QRS Dur : 096 ms QT Int : 490 ms P-R-T Axes : 024 -72 130 degrees QTc Int : 497 ms Normal sinus rhythm Possible Left atrial enlargement Left anterior fascicular block Septal infarct , age undetermined vs LAFB T wave abnormality, consider lateral ischemia Abnormal ECG When compared with ECG of 06-DEC-2016 06:37, Vent. rate has decreased BY 48 BPM Questionable change in QRS duration Septal infarct is now Present QRS axis has shifted left New LAFB, could explain axis shift, QRS widening and septal NH Confirmed by Gunnar Winchester ([id number]) on 10/25/2020 2:59:59 PM Referred By: Confirmed By:Gunnar Winchester
--- NOTE | 2020-10-25 15:18 | CT Scan Report ---
CT SCAN OF THE ABDOMEN AND PELVIS WITHOUT IV CONTRAST CLINICAL HISTORY: Sepsis. Acute renal insufficiency. Difficulty with urination. COMPARISON STUDY: Abdominal CT dated 08/06/2020. TECHNIQUE: CT scan of the abdomen and pelvis is performed from the lung bases to the proximal femora. Images are reviewed in the axial, sagittal, and coronal planes. IV contrast was not administered for this examination. A dose lowering technique was utilized adhering to the principles of ALARA. CT DOSE: 441.95 mGycm FINDINGS: Lung bases: The heart is enlarged noting trace pericardial effusion. There are coronary artery calcif ications. Advanced emphysematous change is seen at the lung bases. There are small right and trace le ft pleural effusions with associated atelectasis. Mild nodular thickening along the right major fissu re is unchanged. Intralobular septal thickening is noted the lung bases. Liver: The unenhanced liver is cirrhotic in morphology and heterogeneous in attenuation. There is nod ularity of the hepatic surface contour. There is no intrahepatic biliary ductal dilatation. Gallbladder: The gallbladder is contracted. There is nonspecific gallbladder wall thickening and ai a which may be related to cirrhosis and ascites. Spleen: Normal in size and attenuation. Pancreas: The unenhanced pancreas is atrophic and grossly unremarkable. Adrenal glands: Unremarkable. Kidneys: The unenhanced kidneys demonstrate mild cortical atrophy and are without hydronephrosis. The re are no renal calculi identified. A 3.9 cm cyst is noted in the left kidney. Cortical scarring is s een in the lower pole of the right kidney. There is nonspecific perinephric stranding. Abdominal vasculature: The abdominal aorta is normal in course and caliber noting advanced atheroscle rotic calcification. Bowel: There is mild colonic diverticulosis without CT evidence of acute diverticulitis. No bowel obs truction is seen. Residual enteric contrast is seen in the colon. There is nonspecific wall thickenin g of the right colon. The appendix is not identified and reported surgically absent. Peritoneum: There is a small volume of abdominopelvic ascites. No intraperitoneal free air is identif ied. Lymphadenopathy: None. Pelvic viscera: The the prostate gland is diminutive and heterogeneous noting brachytherapy implants in place. The bladder wall is thickened and trabeculated indicating chronic outlet obstruction. Skeletal structures: The skeletal structures are osteopenic. There is moderate lumbosacral spondylosi s. Chronic change is seen involving the posterior elements of L5 and S1. No lytic or blastic lesions are seen. Soft tissues: There is body wall edema. IMPRESSION: 1. Cardiomegaly and advanced emphysema. 2. Intralobular septal thickening is seen at the lung bases. This could represent acute versus chroni c congestive change and clinical correlation will be required. 3. Small right and trace left pleural effusions with associated atelectasis. 4. Cirrhotic liver morphology. 5. Small volume of abdominopelvic ascites. 6. There is nonspecific wall thickening of the right colon which likely represents portal colopathy. Correlate clinically for invasive a superimposed infectious/inflammatory colitis. 7. There is nonspecific bilateral perinephric stranding. Correlate with clinical findings and urinaly sis. 8. Body wall edema. 9. Additional findings as detailed above. ACT 112: Negative or not required by law. Electronically signed by: Vipul Mariee M.D. 10/25/2020 3:16 PM
[2020-10-25 15:33] LABS: Influenza A virus by PCR Negative (Neg); Influenza B virus by PCR Negative (Neg); RSV by PCR Negative (Neg); SARS CoV2 RNA(COVID-19) InHosp NEGATIVE (Negative)
[2020-10-25 16:05] LABS: C Reactive Protein 3.06 mg/dl (0-0.29)
[2020-10-25] MEDS ORDERED: NORMOSOL-R 250 ML IV ONE (16:06)
--- NOTE | 2020-10-25 16:28 | History & Physical Report ---
Date of Service October 25, 2020 Assessment & Plan (1) JOHANNA (acute kidney injury): JOHANNA stage II with 2.5 increase in HIGH VALUE ASSOCIATE baseline 1.5 in June. - Appears pre-renal at this time with 30:1 BUN-HIGH VALUE ASSOCIATE ratio, BUN increased to 93 - Multifactorial in cause with decreased oral intake in the setting of continuing dosing of diuretics, BB, and MATHEUS I - No protein or blood in urine - Hold diuretics, BB and MATHEUS - Evaluate heart function with ECHO - Gently resuscitate patient, challenge with 250 ml Normosol with appropriate rise in BP and MAPS- repeat lactate - Normosol at 80 ml/hr - discontinue when euvolemic (2) Dyspnea: Multifactorial * - has noted pleural effusions with CT scan with atelectasis, this has not changed from CT scan in Jul- no acute need for thora - Patient with decreased nutritional status as well will check po4 level - does not appear fluid overloaded on exam - Will obtain bilateral duplex of the legs to rule out DVT for PE- with elevated D-dimer and BNP - ECHO as above - Continue with mometasone/formoterol inhaler - DuoNeb PRN (3) COPD (chronic obstructive pulmonary disease): As above, does not appear to be a COPD exacerbation - multifactorial with poor nutrition (4) Edema: As above- ECHO evaluate for decompensated heart function multifactorial causes - low albumin level as well - Gently resuscitate to euvolemia (5) Elevated troponin: Last ECG available for review was 4 years ago, now with septal and inferolateral changes with axis shift- No acute ST elevations or hyperacute T w ave changes- Likely demand type II - Troponin I 0.6, will trend out with ECG, dyspnea is current symptom no chest pain with exertion or palpitations. - If continue to rise will place on Heparin Drip; although will need to lower HIGH VALUE ASSOCIATE - ECHO as above - Continue ASA - BB on hold to evaluate heart function in the setting of ? decompensated failure (6) CHF (congestive heart failure): CHF exacerbation vs. Sepsis vs. hypovolemia/malnutrition Again multifactorial, HR 60's NSR with SBP <90, MAPs >65 - this may be associated with his continued bb dosing with his rising renal function - Continue supportive care and r/o sepsis as above - ECHo (7) CAD (coronary artery disease): As above (8) Elevated liver enzymes: Get RUQ ultrasound- elevated LFT's with increasing INR to 1.3--- worsening of Lymphoma? vs cardiogenic hepatic congestion vs. poor nutrition - (9) Elevated d-dimer: Patient not tachypneic, tachycardic, or hypoxic- Duplex studies ordered - relapse of lymphoma/non-hodgkins disease. History of Present Illness Primary Care Provider: Shayy MohsenDarcie Madhav 74 YOM with past medical history of Hodkin's lymphoma (recently in remission, however concerns this may be re-lapsing), prostate cacncer with seed implant 11/08/09, COPD, past smoker, CHF (EF55% 2016), CAD (LAD 40-50% 2013, mid RCA 50% 2013), GERD. Patient received his second dose of COVID vaccine ~October 11, this is when he feels he never got back to baseline. Over the past 2 weeks Mr Pink has been experiencing early saiety with decreased foot intake, "smells food and loses his appetite". He has also experienced some lower quadrant abdominal pain that was sharp in nature, followed with about 2 days of fever and diarrhea. He is still having diarrhea and feels as this is associated with when he drinks water or liquids so his oral intake has been down. The abdominal pain and the fevers have resolved. The diarrhea is small in volume, no blood, and brown in color and "he needs to go right away". He has not taken anything for this and due to his poor food intake has not noticed if it gets better or worse with food. He has also been experiencing leg swelling and cramping with an increase in his dyspnea which his PCP has been following and increased his diuretics with no change to his leg swelling or dyspnea. The patient presented to the emergency room for weakness and not feeling well with the above symptoms. In the ER the patient had a workup performed for sepsis and a D-dimer, troponin I, and VBG for his dyspnea. D- dimer 15,370, Troponin I 0.602, Lactate 2.3, and noted to have a tripling of his BUN/HIGH VALUE ASSOCIATE to 93/3.26. Hospitalist team was notified for admission. Patient will be admitted for continued resuscitation and evaluation of his perfusion and oxygenation and following of his biomarkers. Patient with multifactorial causes for his decompensatory state. Inflamitory markers are elevated so will continue Cefipime while cultures are pending, follow cardiac status with volume resuscitation and continue to follow for acute decompensation and trending of troponin, follow renal function and hemodynamics closely. Allergies Allergy/AdvReac Type Severity Reaction Status Date / Time Penicillins Allergy Mild RASH Verified 10/25/20 14:26 ciprofloxacin Allergy Unknown Verified 10/25/20 14:26 levofloxacin AdvReac Mild VOMITTING Verified 10/18/20 14:04 Home Medications Medication Instructions Recorded Confirmed Type ascorbic acid (vitamin C) 500 mg 500 mg PO DAILY cap 06/09/19 10/25/20 History capsule aspirin 81 mg tablet,delayed 81 mg PO DAILY 06/09/19 10/25/20 History release clotrimazole-betamethasone 1 1 appln TOP BID PRN 06/09/19 10/25/20 History %-0.05 % topical cream folic acid 1 mg tablet 1 mg PO DAILY 06/09/19 10/25/20 History lisinopril 40 mg tablet 40 mg PO DAILY tab 06/09/19 10/25/20 History metoprolol tartrate 25 mg tablet 25 mg PO DAILY tab 06/09/19 10/25/20 History nitroglycerin 0.4 mg sublingual 0.4 mg SL Q5M PRN 06/09/19 10/25/20 History tablet simvastatin 20 mg tablet 20 mg PO DAILY tab 06/09/19 10/25/20 History codeine 10 mg-guaifenesin 100 mg/5 5 ml PO Q6H PRN #236 ml 09/09/19 10/25/20 Rx mL oral liquid ipratropium 0.5 mg-albuterol 3 mg 3 ml INH Q4H PRN #360 ml 12/02/19 10/25/20 Rx (2.5 mg base)/3 mL nebulization soln memantine 5 mg tablet 10 mg PO BID tab 12/02/19 10/25/20 History mometasone-formoterol HFA 100 2 puffs INH BID #13 gm 12/02/19 10/25/20 Rx mcg-5 mcg/actuation aerosol inhaler allopurinol 100 mg tablet 100 mg PO DAILY 10/18/20 10/25/20 History furosemide 40 mg PO DAILY 10/25/20 10/25/20 History Past Med/Surg History Medical History Atypical chest pain COPD (chronic obstructive pulmonary disease) Former cigarette smoker History of chemotherapy HTN (hypertension) Hyperlipidemia Non Hodgkin's lymphoma Prostate cancer (08/25/09) "Rise in PSA to 5.6 clinical stage TIC Status post biopsies biopsy stage T2b Reliance grade 3+3" On 11/05/14 16:29 Liz Geiger wrote "Rise in PSA to 5.6 clinical stage TIC Status post biopsies biopsy stage T2b Valentino grade 3+3" Sinusitis Family History Father Aneurysm Family/Other Prostate cancer Social History Smoking Status: Former smoker Hx Alcohol Use: No Hx Substance Use: No Preferred Language: Irish Communication Ability: Effective Geologist Required: No Beliefs That Will Affect Care: None Current Living Situation: Spouse Other Information That Helps Us Care for You: No Feels Safe at Home: Yes Safety Concerns: Feels Safe At This Time Assistive Devices: Denture - Upper, Glasses and Oxygen - Continuous Review of Systems Review of Systems: REVIEW OF SYSTEMS: Constitutional: (+) fever, sweats, chills ( now resolved except for night sweats) Eyes: No diplopia, no worsening or blurred vision ENT: normal hearing, no trouble swallowing Respiratory: (+) dyspnea at rest or on exertion, No cough, sputum, Cardiovascular: No chest pain, tightness or palpitations Abdomen: (+) pain, nausea, vomiting, diarrhea (-) constipation Musculoskeletal: (+) calf pain, swelling; No joint pain, Neurologic: No weakness, numbness/tingling, or balance problems Psychiatric: No anxiety or depression Skin: No rash or itch Physical Exam Physical Exam: PHYSICAL EXAM: General: awake, alert, no apparent distress Head: Normocephalic, atraumatic ENT: PERRLA, EOMI, no pharyngeal exudate, mucous membranes dry Neuro: AAO x 3, speech clear and appropriate, strength intact bilaterally 5/5, sensation intact and equal all extremities and dermatones, no pronator drift Chest: equal rise and fall of the chest, no accessory muscle use, no heaves or thrills, decreased air movment , on room air, Cardiac: Regular rate and rhythm, telemetry reviewed, skin warm dry, cap refill <3 seconds, peripheral pusles +2 no JVD, no murmur, no JVD, no edema GI: NABS x 4 quadrants, soft, nontender to palpation, no rebound, guarding or tenderness : Spontaneously voiding, no pain, no CVA tenderness, Extremities: Normal inspection, no peripheral edema or erythema, calfs nontender to palpation Psych: Normal mood and affect Skin: no rash or erythema Results & Data Results & Data ([facility]) Vital Signs (Past 12 Hours) Vital Signs Temp Pulse Pulse Resp BP BP Pulse Ox 10/25/20 15:42 84 19 108/65 92 10/25/20 14:27 99 10/25/20 12:45 36.7 C 62 20 97/64 L 100 Laboratory Results Abnormal lab results 10/25/20 10/25/20 10/25/20 Range/Units 13:39 13:39 13:39 RDW Std Deviation (36.4-46.3) fL RDW Coeff of Trini (11.5-14.5) % Lymph # (Auto) (1.2-3.4) K/uL PT (9.0-12.0) Seconds INR (0.9-1.1) D-Dimer (0-500) ug/L FEU VBG pH 7.31 L (7.36-7.41) VBG pCO2 55 H (38-50) mmHg Potassium 5.4 H (3.5-5.1) mmol/L BUN 93 H (7-18) mg/dl Creatinine 3.26 H (0.6-1.4) mg/dl BUN/Creatinine Ratio 28.7 H (10-20) Lactate (0.4-2.0) mmol/L Magnesium 2.6 H (1.8-2.4) mg/dl AST 145 H (15-37) U/L ALT 140 H (12-78) U/L Alkaline Phosphatase 258 H (45-117) U/L Troponin I 0.602 H* (0-0.045) ng/ml C-Reactive Protein (0-0.29) mg/dl Albumin 2.7 L (3.4-5.0) gm/dl Albumin/Globulin Ratio 0.7 L (0.9-2) Procalcitonin 0.68 H (0-0.5) ng/ml 10/25/20 10/25/20 10/25/20 Range/Units 13:39 13:39 13:39 RDW Std Deviation 52.2 H (36.4-46.3) fL RDW Coeff of Trini 17.1 H (11.5-14.5) % Lymph # (Auto) 1.19 L (1.2-3.4) K/uL PT 13.1 H (9.0-12.0) Seconds INR 1.3 H (0.9-1.1) D-Dimer 85140 H* (0-500) ug/L FEU VBG pH (7.36-7.41) VBG pCO2 (38-50) mmHg Potassium (3.5-5.1) mmol/L BUN (7-18) mg/dl Creatinine (0.6-1.4) mg/dl BUN/Creatinine Ratio (10-20) Lactate 2.2 H* (0.4-2.0) mmol/L Magnesium (1.8-2.4) mg/dl AST (15-37) U/L ALT (12-78) U/L Alkaline Phosphatase (45-117) U/L Troponin I (0-0.045) ng/ml C-Reactive Protein (0-0.29) mg/dl Albumin (3.4-5.0) gm/dl Albumin/Globulin Ratio (0.9-2) Procalcitonin (0-0.5) ng/ml 10/25/20 10/25/20 Range/Units 13:39 15:34 RDW Std Deviation (36.4-46.3) fL RDW Coeff of Trini (11.5-14.5) % Lymph # (Auto) (1.2-3.4) K/uL PT (9.0-12.0) Seconds INR (0.9-1.1) D-Dimer (0-500) ug/L FEU VBG pH (7.36-7.41) VBG pCO2 (38-50) mmHg Potassium (3.5-5.1) mmol/L BUN (7-18) mg/dl Creatinine (0.6-1.4) mg/dl BUN/Creatinine Ratio (10-20) Lactate 2.3 H* (0.4-2.0) mmol/L Magnesium (1.8-2.4) mg/dl AST (15-37) U/L ALT (12-78) U/L Alkaline Phosphatase (45-117) U/L Troponin I (0-0.045) ng/ml C-Reactive Protein 3.06 H (0-0.29) mg/dl Albumin (3.4-5.0) gm/dl Albumin/Globulin Ratio (0.9-2) Procalcitonin (0-0.5) ng/ml Diagnostic Findings CT SCAN OF THE ABDOMEN AND PELVIS WITHOUT IV CONTRAST CLINICAL HISTORY: Sepsis. Acute renal insufficiency. Difficulty with urination. COMPARISON STUDY: Abdominal CT dated 08/06/2020. TECHNIQUE: CT scan of the abdomen and pelvis is performed from the lung bases to the proximal femora. Images are reviewed in the axial, sagittal, and coronal planes. IV contrast was not administered for this examination. A dose lowering technique was utilized adhering to the principles of ALARA. CT DOSE: 441.95 mGycm FINDINGS: Lung bases: The heart is enlarged noting trace pericardial effusion. There are coronary artery calcifications. Advanced emphysematous change is seen at the lung bases. There are small right and trace left pleural effusions with associated atelectasis. Mild nodular thickening along the right major fissure is unchanged. Intralobular septal thickening is noted the lung bases. Liver: The unenhanced liver is cirrhotic in morphology and heterogeneous in attenuation. There is nodularity of the hepatic surface contour. There is no intrahepatic biliary ductal dilatation. Gallbladder: The gallbladder is contracted. There is nonspecific gallbladder wall thickening and edema which may be related to cirrhosis and ascites. Spleen: Normal in size and attenuation. Pancreas: The unenhanced pancreas is atrophic and grossly unremarkable. Adrenal glands: Unremarkable. Kidneys: The unenhanced kidneys demonstrate mild cortical atrophy and are without hydronephrosis. There are no renal calculi identified. A 3.9 cm cyst is noted in the left kidney. Cortical scarring is seen in the lower pole of the right kidney. There is nonspecific perinephric stranding. Abdominal vasculature: The abdominal aorta is normal in course and caliber noting advanced atherosclerotic calcification. Bowel: There is mild colonic diverticulosis without CT evidence of acute diverticulitis. No bowel obstruction is seen. Residual enteric contrast is seen in the colon. There is nonspecific wall thickening of the right colon. The appendix is not identified and reported surgically absent. Peritoneum: There is a small volume of abdominopelvic ascites. No intraperitoneal free air is identified. Lymphadenopathy: None. Pelvic viscera: The the prostate gland is diminutive and heterogeneous noting brachytherapy implants in place. The bladder wall is thickened and trabeculated indicating chronic outlet obstruction. Skeletal structures: The skeletal structures are osteopenic. There is moderate lumbosacral spondylosis. Chronic change is seen involving the posterior elements of L5 and S1. No lytic or blastic lesions are seen. Soft tissues: There is body wall edema. SINGLE VIEW CHEST CLINICAL HISTORY: Sepsis. FINDINGS: 2 AP, portable, upright chest radiographs are compared to study dated 08/28/2019 and correlated with chest CT dated 08/06/2020. The examination is degraded by portable technique and apical lordotic positioning. The a left subclavian central venous infusion port is unchanged in position. The heart is enlarged noting atherosclerotic calcification of the thoracic aorta. The pulmonary vasculature is noncongested. Emphysema and chronic interstitial thickening is similar to previous. Trace pleural effusions are suspected. No airspace consolidation is seen typical for pneumonia. A calcified granuloma is noted in the right lower lobe. Scarring/atelectasis is present at the lung bases. No pneumothorax is seen. The skeletal structures are osteopenic. The bony thorax is grossly intact. IMPRESSION: 1. Cardiomegaly and emphysema. 2. Suspect trace pleural effusions. Medications Administered Sodium Chloride (Nss 1000ml) 1,000 mls @ 80 mls/hr IV .[id number] [facility] Stop: 11/24/20 13:14 Last Admin: 10/25/20 13:44 Dose: 80 mls/hr Documented by: [id number] Parenteral Electrolytes (Normosol-R) 250 mls @ 250 mls/hr IV .Q1H ONE Stop: 10/25/20 17:05 Last Admin: 10/25/20 16:20 Dose: 250 mls/hr Documented by: [id number] Discontinued Medications Calcium Gluconate 1,000 mg/ (Sodium Chloride) 60 mls @ 240 mls/hr IV NOW STA Stop: 10/25/20 14:42 Last Infusion: 10/25/20 16:10 Dose: 0 mls/hr Documented by: [id number] Admin: 10/25/20 15:33 Dose: 240 mls/hr Documented by: [id number] ECG Additional Comments: Normal sinus rhythm Possible Left atrial enlargement Left anterior fascicular block Septal infarct , age undetermined vs LAFB T wave abnormality, consider lateral ischemia Abnormal ECG When compared with ECG of 06-DEC-2016 Vent. rate has decreased BY 48 BPM Questionable change in QRS duration Septal changes QRS axis has shifted left Code Status & VTE Plan Code Status VTE: heparin SCD's CODE: DNR/DNI VTE Prophylaxis Plan VTE Prophylaxis will be ordered: Yes Supervising Physician Co-Signing Physician Notes Attending Attestation & Admission Note: Pt seen/examined, chart reviewed, admit care plan d/w JACK Angelo. I agree w/ the cyole components of his documentation. 74yo AA male with reported h/o CHF (he could not give details), Non-Hodgkin's Lymphoma, prior heavy tobacco usage, COPD, h/o prostate ca, HTN - presenting with multiple complaints which started shortly after his 2nd dose of COVID-19 vaccine. Patient states he has chronic, baseline RAMEY but that his sob worsened over the last few weeks. Coinciding with such he has noted worsening b/l LE edema. He reports chronic LLE pain with walking - cramps - that improve w/ rest. He has had lower abdominal pain with diarrhea for several weeks as well. Abd pain is improved but diarrhea has continued. He typically is NOT on oxygen at home. PMH, PSH, allergies, meds, sochx, famhx - reviewed Vitals - no fever, BP low-normal at ER presentation today gen - thin, looks dehydrated, poor historian neck - JVD present mouth - MM dry heart - RRR, s1 s2, 2/6 systolic murmur LLSB lungs - decreased BS bases, no rales abd - mildly tender to palpation LLQ, BS+, ND ext - trace edema, pulses 1+ b/l - a little stronger on right vs left labs reviewed Cr 3.2 LFTs abnormal A/P: 1. acute/chronic dyspnea 2. markedly elevated d-dimer 3. worsening LE edema at home - upon presentation today trace only 4. h/o CHF 5. h/o COPD 6. abnormal LFTs with cirrhotic appearing liver on imaging - heavy etoh use until ~1989 per his recollection but he denies h/o cirrhosis 7. non-Hodgkin's lymphoma 8. diarrhea 9. abdominal pain 10. acute kidney injury 11. suspicion of right-sided CHF/pulmonary HTN 12. LLE pain w/ walking - PAD?? gentle hydrate for #8 and #10 c diff and stool cx RUQ u/s given cirrhosis and LFT abnormalities agree with dopplers of legs given d-dimer elevation to r/o DVT if Cr normalizes then obtain CTA PE protocol; if not -- V/Q scan while awaiting dedicated chest imaging consider empiric heparin drip dimer elevation, if not from VTE, could be from lymphoma echo to assess L & R heart function LLE pain w/ ambulation - suspect PAD; doesn't sound neurogenic; defer w/u for now given the sheer number of other pressing issues at this time complex patient with numerous issues in parallel at this time Kwan Sexton MD PG Care Time/CCT Total # of Minutes Spent Total Time Spent with Patient: Total time spent is greater than 50% in coordination of care (as documented) at patient's floor/unit and/or counseling patient: Coding Level of Care Code 05005 Initial Inpt Care Lvl 3 Diagnoses JOHANNA (acute kidney injury) N17.9 Dyspnea R06.00 Dyspnea type: unspecified COPD (chronic obstructive pulmonary disease) J43.9 COPD type: emphysema Emphysema type: unspecified Edema R60.9 Edema type: unspecified Elevated troponin R77.8 CHF (congestive heart failure) I50.32 Heart failure chronicity: chronic Heart failure type: diastolic CAD (coronary artery disease) I25.10 Associated angina: without angina Coronary Disease-Associated Artery/Lesion type: viejas artery [place] vs. transplanted heart: viejas heart Elevated liver enzymes R74.8 Elevated d-dimer R79.89 (1) CAD (coronary artery disease) Associated angina: without angina Coronary Disease-Associated Artery/Lesion type: viejas artery [place] vs. transplanted heart: viejas heart Qualified Code(s): I25.10 - Atherosclerotic heart disease of viejas coronary artery with out angina pectoris (2) CHF (congestive heart failure) Heart failure chronicity: chronic Heart failure type: diastolic Qualified Code(s): I50.32 - Chronic diastolic (congestive) heart failure (3) Dyspnea Dyspnea type: unspecified Qualified Code(s): R06.00 - Dyspnea, unspecified (4) Edema Edema type: unspecified Qualified Code(s): R60.9 - Edema, unspecified (5) COPD (chronic obstructive pulmonary disease) COPD type: emphysema Emphysema type: unspecified Qualified Code(s): J43.9 - Emphysema, unspecified
[2020-10-25 16:32] LABS: Appearance Urine Clear (Clear); Bilirubin Urine Negative (Negative); Blood Urine Negative (Negative); Color Urine Dark Yellow; Glucose Urine UA Negative (Negative); Ketones Urine Negative (Negative); Leukocyte Esterase Urine Negative (Negative); Nitrite Urine Negative (Negative); Protein Urine Negative (Negative); Urobilinogen Urine Negative (Negative)
[2020-10-25 17:03] LABS: NT Pro B Type Natriuretic Pept > 35000 pg/ml (0-1800)
--- NOTE | 2020-10-25 17:17 | Emergency Department Note ---
History of Present Illness General Chief complaint: Illness Stated complaint: ILLNESS, FEVER, VOMITING, DIARRHEA Time Seen by Provider: 10/25/20 13:02 History of Present Illness Provider complaint: Fever weakness nausea cough Onset (ago): day(s) 3 Maximum Pain Intensity: 0 Associated symptoms: + cough, + fever/chills and + nausea/vomiting; no chest pain, no headaches, no shortness of breath and no syncope 74-year-old male presents emergency department for fever, weakness, cough nausea vomiting for last 3 days. Patient does have a history of non-Hodgkin's lymphoma. 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 He states he follows up with Dr. Arenas but has not started any active chemotherapy at this time. Patient denies any dysuria or hematuria. He reports no cough. No chest pain or difficulty breathing. Home Medications Medication Instructions Recorded Confirmed Type ascorbic acid (vitamin C) 500 mg 500 mg PO DAILY cap 06/09/19 10/25/20 History capsule aspirin 81 mg tablet,delayed 81 mg PO DAILY 06/09/19 10/25/20 History release clotrimazole-betamethasone 1 1 appln TOP BID PRN 06/09/19 10/25/20 History %-0.05 % topical cream folic acid 1 mg tablet 1 mg PO DAILY 06/09/19 10/25/20 History lisinopril 40 mg tablet 40 mg PO DAILY tab 06/09/19 10/25/20 History metoprolol tartrate 25 mg tablet 25 mg PO DAILY tab 06/09/19 10/25/20 History nitroglycerin 0.4 mg sublingual 0.4 mg SL Q5M PRN 06/09/19 10/25/20 History tablet simvastatin 20 mg tablet 20 mg PO DAILY tab 06/09/19 10/25/20 History codeine 10 mg-guaifenesin 100 mg/5 5 ml PO Q6H PRN #236 ml 09/09/19 10/25/20 Rx mL oral liquid ipratropium 0.5 mg-albuterol 3 mg 3 ml INH Q4H PRN #360 ml 12/02/19 10/25/20 Rx (2.5 mg base)/3 mL nebulization soln memantine 5 mg tablet 10 mg PO BID tab 12/02/19 10/25/20 History mometasone-formoterol HFA 100 2 puffs INH BID #13 gm 12/02/19 10/25/20 Rx mcg-5 mcg/actuation aerosol inhaler allopurinol 100 mg tablet 100 mg PO DAILY 10/18/20 10/25/20 History furosemide 40 mg PO DAILY 10/25/20 10/25/20 History Allergies Allergy/AdvReac Type Severity Reaction Status Date / Time Penicillins Allergy Mild RASH Verified 10/25/20 14:26 ciprofloxacin Allergy Unknown Verified 10/25/20 14:26 levofloxacin AdvReac Mild VOMITTING Verified 10/18/20 14:04 Past Med/Surg History Medical History Atypical chest pain COPD (chronic obstructive pulmonary disease) Former cigarette smoker History of chemotherapy HTN (hypertension) Hyperlipidemia Non Hodgkin's lymphoma Prostate cancer (08/25/09) "Rise in PSA to 5.6 clinical stage TIC Status post biopsies biopsy stage T2b [place] grade 3+3" On 11/05/14 16:29 Liz Geiger wrote "Rise in PSA to 5.6 clinical stage TIC Status post biopsies biopsy stage T2b [place] grade 3+3" Sinusitis Family History Father Aneurysm Family/Other Prostate cancer Social History Smoking Status: Former smoker Hx Alcohol Use: No Hx Substance Use: No (former smoker) Preferred Language: Turkmen Communication Ability: Effective Beliefs That Will Affect Care: None Current Living Situation: Spouse Feels Safe at Home: Yes Assistive Devices: Denture - Upper, Glasses and Nebulizer Review of Systems A total of 10 systems reviewed and were otherwise negative Physical Exam Vital Signs Vital Signs - 24 hr 10/25/20 12:45 10/25/20 13:10 10/25/20 13:18 Temperature 36.7 C Temperature Source Temporal Artery Scan Pulse Rate 62 63 Pulse Rate [Right Finger] Pulse Rate from SpO2 Sensor 63 Respiratory Rate 20 23 Respiratory Effort / Characteristics Short of Breath Non-Labored Spontaneous Blood Pressure 97/64 L 101/65 Blood Pressure [Right Arm] Blood Pressure Mean 75 77 Blood Pressure Mean [Right Arm] Blood Pressure Position Sitting Pulse Oximetry 100 100 Oxygen Delivery Method Nasal Cannula Oxygen Flow Rate 2 Sepsis Recent Fever Within 48 Hours Yes Sepsis New/Unexplained Change in Mental Status No Sepsis Action Taken by Nursing No Action Required 10/25/20 13:19 10/25/20 13:20 10/25/20 13:30 Temperature Temperature Source Pulse Rate 62 62 62 Pulse Rate [Right Finger] Pulse Rate from SpO2 Sensor 62 62 Respiratory Rate 18 21 18 Respiratory Effort / Characteristics Blood Pressure Blood Pressure [Right Arm] Blood Pressure Mean Blood Pressure Mean [Right Arm] Blood Pressure Position Pulse Oximetry 99 99 Oxygen Delivery Method Oxygen Flow Rate Sepsis Recent Fever Within 48 Hours Sepsis New/Unexplained Change in Mental Status Sepsis Action Taken by Nursing 10/25/20 13:40 10/25/20 13:45 10/25/20 13:50 Temperature Temperature Source Pulse Rate 61 62 62 Pulse Rate [Right Finger] Pulse Rate from SpO2 Sensor 62 62 Respiratory Rate 22 19 20 Respiratory Effort / Characteristics Blood Pressure 102/79 Blood Pressure [Right Arm] Blood Pressure Mean 86 Blood Pressure Mean [Right Arm] Blood Pressure Position Pulse Oximetry 100 99 Oxygen Delivery Method Oxygen Flow Rate Sepsis Recent Fever Within 48 Hours Sepsis New/Unexplained Change in Mental Status Sepsis Action Taken by Nursing 10/25/20 14:00 10/25/20 14:01 10/25/20 14:10 Temperature Temperature Source Pulse Rate 61 62 63 Pulse Rate [Right Finger] Pulse Rate from SpO2 Sensor 60 62 66 Respiratory Rate 18 15 17 Respiratory Effort / Characteristics Blood Pressure 111/70 Blood Pressure [Right Arm] Blood Pressure Mean 83 Blood Pressure Mean [Right Arm] Blood Pressure Position Pulse Oximetry 100 100 100 Oxygen Delivery Method Oxygen Flow Rate Sepsis Recent Fever Within 48 Hours Sepsis New/Unexplained Change in Mental Status Sepsis Action Taken by Nursing 10/25/20 14:20 10/25/20 14:27 10/25/20 14:30 Temperature Temperature Source Pulse Rate 62 63 Pulse Rate [Right Finger] Pulse Rate from SpO2 Sensor 63 Respiratory Rate 19 18 Respiratory Effort / Characteristics Blood Pressure 100/74 Blood Pressure [Right Arm] Blood Pressure Mean 82 Blood Pressure Mean [Right Arm] Blood Pressure Position Pulse Oximetry 100 99 Oxygen Delivery Method Oxygen Flow Rate Sepsis Recent Fever Within 48 Hours Sepsis New/Unexplained Change in Mental Status Sepsis Action Taken by Nursing 10/25/20 14:31 10/25/20 14:40 10/25/20 15:22 Temperature Temperature Source Pulse Rate 63 63 62 Pulse Rate [Right Finger] Pulse Rate from SpO2 Sensor 63 63 62 Respiratory Rate 19 16 18 Respiratory Effort / Characteristics Blood Pressure 101/64 Blood Pressure [Right Arm] Blood Pressure Mean 76 Blood Pressure Mean [Right Arm] Blood Pressure Position Pulse Oximetry 100 100 100 Oxygen Delivery Method Oxygen Flow Rate Sepsis Recent Fever Within 48 Hours Sepsis New/Unexplained Change in Mental Status Sepsis Action Taken by Nursing 10/25/20 15:30 10/25/20 15:31 10/25/20 15:40 Temperature Temperature Source Pulse Rate 62 62 66 Pulse Rate [Right Finger] Pulse Rate from SpO2 Sensor 63 62 Respiratory Rate 16 16 15 Respiratory Effort / Characteristics Blood Pressure 108/65 Blood Pressure [Right Arm] Blood Pressure Mean 79 Blood Pressure Mean [Right Arm] Blood Pressure Position Pulse Oximetry 98 99 Oxygen Delivery Method Oxygen Flow Rate Sepsis Recent Fever Within 48 Hours Sepsis New/Unexplained Change in Mental Status Sepsis Action Taken by Nursing 10/25/20 15:42 10/25/20 15:50 10/25/20 16:00 Temperature Temperature Source Pulse Rate 64 65 Pulse Rate [Right Finger] 84 Pulse Rate from SpO2 Sensor Respiratory Rate 19 19 20 Respiratory Effort / Characteristics Blood Pressure 118/79 Blood Pressure [Right Arm] 108/65 Blood Pressure Mean 92 Blood Pressure Mean [Right Arm] 79 Blood Pressure Position Pulse Oximetry 92 Oxygen Delivery Method Nasal Cannula Oxygen Flow Rate 2 Sepsis Recent Fever Within 48 Hours Sepsis New/Unexplained Change in Mental Status Sepsis Action Taken by Nursing 10/25/20 16:01 10/25/20 16:10 10/25/20 16:20 Temperature Temperature Source Pulse Rate 66 64 64 Pulse Rate [Right Finger] Pulse Rate from SpO2 Sensor 66 64 Respiratory Rate 19 17 14 Respiratory Effort / Characteristics Blood Pressure Blood Pressure [Right Arm] Blood Pressure Mean Blood Pressure Mean [Right Arm] Blood Pressure Position Pulse Oximetry 99 98 Oxygen Delivery Method Oxygen Flow Rate Sepsis Recent Fever Within 48 Hours Sepsis New/Unexplained Change in Mental Status Sepsis Action Taken by Nursing 10/25/20 16:30 10/25/20 16:32 10/25/20 16:40 Temperature Temperature Source Pulse Rate 66 64 65 Pulse Rate [Right Finger] Pulse Rate from SpO2 Sensor 66 66 66 Respiratory Rate 20 18 17 Respiratory Effort / Characteristics Blood Pressure 110/74 Blood Pressure [Right Arm] Blood Pressure Mean 86 Blood Pressure Mean [Right Arm] Blood Pressure Position Pulse Oximetry 94 100 100 Oxygen Delivery Method Oxygen Flow Rate Sepsis Recent Fever Within 48 Hours Sepsis New/Unexplained Change in Mental Status Sepsis Action Taken by Nursing 10/25/20 16:50 Temperature Temperature Source Pulse Rate 65 Pulse Rate [Right Finger] Pulse Rate from SpO2 Sensor 65 Respiratory Rate 18 Respiratory Effort / Characteristics Blood Pressure Blood Pressure [Right Arm] Blood Pressure Mean Blood Pressure Mean [Right Arm] Blood Pressure Position Pulse Oximetry 99 Oxygen Delivery Method Oxygen Flow Rate Sepsis Recent Fever Within 48 Hours Sepsis New/Unexplained Change in Mental Status Sepsis Action Taken by Nursing Physical Exam GENERAL: He is oriented to person, place, and time. He appears well-developed and well-nourished. He does not appear distressed. HENT: Exam performed. - Head: Normocephalic and atraumatic. - Right Ear: External ear normal. No mastoid tenderness. - Left Ear: External ear normal. No mastoid tenderness. - Mouth/Throat: The oropharynx is clear and moist. No trismus in the jaw. No dental abscesses or uvula swelling. No oropharyngeal exudate or tonsillar abscesses. EYES: Conjunctivae and EOM are normal. Pupils are equal, round, and reactive to light. Right eye exhibits no discharge. Left eye exhibits no discharge. No scleral icterus. NECK: Normal range of motion. Neck supple. No JVD present. No spinous process tenderness present. No carotid bruit present. No rigidity. No tracheal deviation and normal range of motion present. No Brudzinski's sign and no Kernig's sign noted. CV: Normal rate, regular rhythm, normal heart sounds and intact distal pulses. There is no peripheral edema. Palpable radial pulses bue. PULM/CHEST: Effort normal and breath sounds normal. No respiratory distress. No stridor. He has no wheezes. He has no rales. - Chest Wall: He exhibits no tenderness. Mediport in place. ABD: The abdomen is soft. Bowel sounds are normal. He has no distension. No mass is present. There is no tenderness. There is no rebound, no guarding, no Resendez's sign and no tenderness at McBurney's point. Rovsig negative. MUSC/SKEL: Normal range of motion. There is no peripheral edema, tenderness or deformity. LYMPH: No cervical adenopathy. NEURO: He is alert and oriented to person, place, and time. He has normal strength. No cranial nerve deficit or sensory deficit. Coordination and gait normal. GCS eye subscore is 4. GCS verbal subscore is 5. GCS motor subscore is 6. Cerebellar tests wnl. SKIN: Skin is warm and dry. He is not diaphoretic. PSYCH: He has a normal mood and affect. Behavior is normal. Judgment and thought content normal. Course Course 1302: The patient was evaluated in room C7. A complete history and physical exam was performed Cardiac monitoring: An order was placed for continuous cardiac monitoring. The monitor shows a rate of 60 with sinus rhythm 1550: Vital signs stable. Labs show potassium of 5.4. Creatinine is at 3.26, baseline creatinine runs less than 2. Patient's lactic acid is elevated 2.2. There is judicious fluid that was given to the patient due to his history of fluid overloaded. Patient's proBNP is greater than 35,000 and his troponin is elevated more than 0.602. Alkaline phosphatase 258 AST ALT 145 and 140 respectively. Patient's procalcitonin is also elevated 0.68. Urinalysis is still pending. COVID-19 swab negative. Imaging shows cardiomegaly with congestive changes. There are also nonspecific wall thickening of the right colon representing portal colopathy and bilateral perinephric stranding. Patient was treated with broad-spectrum antibiotics. Patient will be admitted to the [facility] service. Dr. Sexton has been notified Administered Medications Sodium Chloride (Nss 1000ml) 1,000 mls @ 80 mls/hr IV .[id number] [facility] Stop: 11/24/20 13:14 Last Admin: 10/25/20 13:44 Dose: 80 mls/hr Documented by: [id number] Discontinued Medications Calcium Gluconate 1,000 mg/ (Sodium Chloride) 60 mls @ 240 mls/hr IV NOW STA Stop: 10/25/20 14:42 Last Infusion: 10/25/20 16:10 Dose: 0 mls/hr Documented by: [id number] Admin: 10/25/20 15:33 Dose: 240 mls/hr Documented by: [id number] Parenteral Electrolytes (Normosol-R) 250 mls @ 250 mls/hr IV .Q1H ONE Stop: 10/25/20 17:05 Last Admin: 10/25/20 16:20 Dose: 250 mls/hr Documented by: [id number] Medical Decision Making Laboratory Data Result diagrams: 10/25/20 13:39 10/25/20 13:39 Lab Results 10/25/20 10/25/20 10/25/20 Range/Units 13:39 13:39 13:39 WBC (4.8-10.8) K/uL RBC (4.7-6.1) M/uL Hgb (14.0-18.0) g/dL Hct (42-52) % MCV (80-100) fL MCH (25-34) pg MCHC (32-36) g/dL RDW Std Deviation (36.4-46.3) fL RDW Coeff of Trini (11.5-14.5) % Plt Count (130-400) K/uL MPV (7.4-10.4) fL Immature Gran % (Auto) % Neut % (Auto) % Lymph % (Auto) % [place] % (Auto) % Eos % (Auto) % Baso % (Auto) % Neut # (Auto) (1.4-6.5) K/uL Lymph # (Auto) (1.2-3.4) K/uL [place] # (Auto) (0.11-0.59) K/uL Eos # (Auto) (0-0.5) K/uL Baso # (Auto) (0-0.2) K/uL Immature Gran # (Auto) (0.00-0.02) K/uL PT (9.0-12.0) Seconds INR (0.9-1.1) APTT (21.0-31.0) Seconds PTT Ratio D-Dimer (0-500) ug/L FEU VBG pH 7.31 L (7.36-7.41) VBG pCO2 55 H (38-50) mmHg VBG pO2 31 mmHg VBG HCO3 27 mmol/L VBG O2 Saturation < 60.0 % VBG Base Excess 0 mEq/L Barometric Pressure 733.2 mm/Hg Sodium 136 (136-145) mmol/L Potassium 5.4 H (3.5-5.1) mmol/L Chloride 102 (98-107) mmol/L Carbon Dioxide 27 (21-32) mmol/L Anion Gap 7.0 (3-11) BUN 93 H (7-18) mg/dl Creatinine 3.26 H (0.6-1.4) mg/dl Est Cr Clr Drug Dosing 16.1 ml/min Est GFR ( Amer) 20.2 Est GFR (Non-Af Amer) 17.4 BUN/Creatinine Ratio 28.7 H (10-20) Glucose 89 (70-99) mg/dl Lactate (0.4-2.0) mmol/L Calcium 9.5 (8.5-10.1) mg/dl Magnesium 2.6 H (1.8-2.4) mg/dl Total Bilirubin 0.7 (0.2-1) mg/dl AST 145 H (15-37) U/L ALT 140 H (12-78) U/L Alkaline Phosphatase 258 H (45-117) U/L Troponin I 0.602 H* (0-0.045) ng/ml C-Reactive Protein (0-0.29) mg/dl NT-Pro-B Natriuret Pep (0-1800) pg/ml Total Protein 6.5 (6.4-8.2) gm/dl Albumin 2.7 L (3.4-5.0) gm/dl Globulin 3.8 (2.5-4.0) gm/dl Albumin/Globulin Ratio 0.7 L (0.9-2) Lipase 105 (73-393) U/L Procalcitonin 0.68 H (0-0.5) ng/ml Urine Color Urine Appearance (Clear) Urine pH (4.5-7.5) Ur Specific [place] (1.000-1.030) Urine Protein (Negative) Urine Glucose (UA) (Negative) Urine Ketones (Negative) Urine Blood (Negative) Urine Nitrite (Negative) Urine Bilirubin (Negative) Urine Urobilinogen (Negative) Ur Leukocyte Esterase (Negative) COVID-19 Eval Order SARS-CoV-2 (PCR) (Negative) Influenza Type A (PCR) (Neg) Influenza Type B (PCR) (Neg) RSV (RT-PCR) (Neg) 10/25/20 10/25/20 10/25/20 Range/Units 13:39 13:39 13:39 WBC 5.70 (4.8-10.8) K/uL RBC 5.25 (4.7-6.1) M/uL Hgb 14.5 (14.0-18.0) g/dL Hct 44.1 (42-52) % MCV 84.0 (80-100) fL MCH 27.6 (25-34) pg MCHC 32.9 (32-36) g/dL RDW Std Deviation 52.2 H (36.4-46.3) fL RDW Coeff of Trini 17.1 H (11.5-14.5) % Plt Count 146 (130-400) K/uL MPV 10.2 (7.4-10.4) fL Immature Gran % (Auto) 0.2 % Neut % (Auto) 66.6 % Lymph % (Auto) 20.9 % [place] % (Auto) 7.7 % Eos % (Auto) 4.4 % Baso % (Auto) 0.2 % Neut # (Auto) 3.80 (1.4-6.5) K/uL Lymph # (Auto) 1.19 L (1.2-3.4) K/uL [place] # (Auto) 0.44 (0.11-0.59) K/uL Eos # (Auto) 0.25 (0-0.5) K/uL Baso # (Auto) 0.01 (0-0.2) K/uL Immature Gran # (Auto) 0.01 (0.00-0.02) K/uL PT 13.1 H (9.0-12.0) Seconds INR 1.3 H (0.9-1.1) APTT 27.6 (21.0-31.0) Seconds PTT Ratio 1.0 D-Dimer 35056 H* (0-500) ug/L FEU VBG pH (7.36-7.41) VBG pCO2 (38-50) mmHg VBG pO2 mmHg VBG HCO3 mmol/L VBG O2 Saturation % VBG Base Excess mEq/L Barometric Pressure mm/Hg Sodium (136-145) mmol/L Potassium (3.5-5.1) mmol/L Chloride (98-107) mmol/L Carbon Dioxide (21-32) mmol/L Anion Gap (3-11) BUN (7-18) mg/dl Creatinine (0.6-1.4) mg/dl Est Cr Clr Drug Dosing ml/min Est GFR ( Amer) Est GFR (Non-Af Amer) BUN/Creatinine Ratio (10-20) Glucose (70-99) mg/dl Lactate 2.2 H* (0.4-2.0) mmol/L Calcium (8.5-10.1) mg/dl Magnesium (1.8-2.4) mg/dl Total Bilirubin (0.2-1) mg/dl AST (15-37) U/L ALT (12-78) U/L Alkaline Phosphatase (45-117) U/L Troponin I (0-0.045) ng/ml C-Reactive Protein (0-0.29) mg/dl NT-Pro-B Natriuret Pep (0-1800) pg/ml Total Protein (6.4-8.2) gm/dl Albumin (3.4-5.0) gm/dl Globulin (2.5-4.0) gm/dl Albumin/Globulin Ratio (0.9-2) Lipase (73-393) U/L Procalcitonin (0-0.5) ng/ml Urine Color Urine Appearance (Clear) Urine pH (4.5-7.5) Ur Specific [place] (1.000-1.030) Urine Protein (Negative) Urine Glucose (UA) (Negative) Urine Ketones (Negative) Urine Blood (Negative) Urine Nitrite (Negative) Urine Bilirubin (Negative) Urine Urobilinogen (Negative) Ur Leukocyte Esterase (Negative) COVID-19 Eval Order SARS-CoV-2 (PCR) (Negative) Influenza Type A (PCR) (Neg) Influenza Type B (PCR) (Neg) RSV (RT-PCR) (Neg) 10/25/20 10/25/20 10/25/20 Range/Units 13:39 14:17 14:17 WBC (4.8-10.8) K/uL RBC (4.7-6.1) M/uL Hgb (14.0-18.0) g/dL Hct (42-52) % MCV (80-100) fL MCH (25-34) pg MCHC (32-36) g/dL RDW Std Deviation (36.4-46.3) fL RDW Coeff of Trini (11.5-14.5) % Plt Count (130-400) K/uL MPV (7.4-10.4) fL Immature Gran % (Auto) % Neut % (Auto) % Lymph % (Auto) % [place] % (Auto) % Eos % (Auto) % Baso % (Auto) % Neut # (Auto) (1.4-6.5) K/uL Lymph # (Auto) (1.2-3.4) K/uL [place] # (Auto) (0.11-0.59) K/uL Eos # (Auto) (0-0.5) K/uL Baso # (Auto) (0-0.2) K/uL Immature Gran # (Auto) (0.00-0.02) K/uL PT (9.0-12.0) Seconds INR (0.9-1.1) APTT (21.0-31.0) Seconds PTT Ratio D-Dimer (0-500) ug/L FEU VBG pH (7.36-7.41) VBG pCO2 (38-50) mmHg VBG pO2 mmHg VBG HCO3 mmol/L VBG O2 Saturation % VBG Base Excess mEq/L Barometric Pressure mm/Hg Sodium (136-145) mmol/L Potassium (3.5-5.1) mmol/L Chloride (98-107) mmol/L Carbon Dioxide (21-32) mmol/L Anion Gap (3-11) BUN (7-18) mg/dl Creatinine (0.6-1.4) mg/dl Est Cr Clr Drug Dosing ml/min Est GFR ( Amer) Est GFR (Non-Af Amer) BUN/Creatinine Ratio (10-20) Glucose (70-99) mg/dl Lactate (0.4-2.0) mmol/L Calcium (8.5-10.1) mg/dl Magnesium (1.8-2.4) mg/dl Total Bilirubin (0.2-1) mg/dl AST (15-37) U/L ALT (12-78) U/L Alkaline Phosphatase (45-117) U/L Troponin I (0-0.045) ng/ml C-Reactive Protein 3.06 H (0-0.29) mg/dl NT-Pro-B Natriuret Pep > 17187 H (0-1800) pg/ml Total Protein (6.4-8.2) gm/dl Albumin (3.4-5.0) gm/dl Globulin (2.5-4.0) gm/dl Albumin/Globulin Ratio (0.9-2) Lipase (73-393) U/L Procalcitonin (0-0.5) ng/ml Urine Color Urine Appearance (Clear) Urine pH (4.5-7.5) Ur Specific [place] (1.000-1.030) Urine Protein (Negative) Urine Glucose (UA) (Negative) Urine Ketones (Negative) Urine Blood (Negative) Urine Nitrite (Negative) Urine Bilirubin (Negative) Urine Urobilinogen (Negative) Ur Leukocyte Esterase (Negative) COVID-19 Eval Order CovFluRsv at [facility] SARS-CoV-2 (PCR) NEGATIVE (Negative) Influenza Type A (PCR) Negative (Neg) Influenza Type B (PCR) Negative (Neg) RSV (RT-PCR) Negative (Neg) 10/25/20 10/25/20 Range/Units 15:34 16:06 WBC (4.8-10.8) K/uL RBC (4.7-6.1) M/uL Hgb (14.0-18.0) g/dL Hct (42-52) % MCV (80-100) fL MCH (25-34) pg MCHC (32-36) g/dL RDW Std Deviation (36.4-46.3) fL RDW Coeff of Trini (11.5-14.5) % Plt Count (130-400) K/uL MPV (7.4-10.4) fL Immature Gran % (Auto) % Neut % (Auto) % Lymph % (Auto) % [place] % (Auto) % Eos % (Auto) % Baso % (Auto) % Neut # (Auto) (1.4-6.5) K/uL Lymph # (Auto) (1.2-3.4) K/uL [place] # (Auto) (0.11-0.59) K/uL Eos # (Auto) (0-0.5) K/uL Baso # (Auto) (0-0.2) K/uL Immature Gran # (Auto) (0.00-0.02) K/uL PT (9.0-12.0) Seconds INR (0.9-1.1) APTT (21.0-31.0) Seconds PTT Ratio D-Dimer (0-500) ug/L FEU VBG pH (7.36-7.41) VBG pCO2 (38-50) mmHg VBG pO2 mmHg VBG HCO3 mmol/L VBG O2 Saturation % VBG Base Excess mEq/L Barometric Pressure mm/Hg Sodium (136-145) mmol/L Potassium (3.5-5.1) mmol/L Chloride (98-107) mmol/L Carbon Dioxide (21-32) mmol/L Anion Gap (3-11) BUN (7-18) mg/dl Creatinine (0.6-1.4) mg/dl Est Cr Clr Drug Dosing ml/min Est GFR ( Amer) Est GFR (Non-Af Amer) BUN/Creatinine Ratio (10-20) Glucose (70-99) mg/dl Lactate 2.3 H* (0.4-2.0) mmol/L Calcium (8.5-10.1) mg/dl Magnesium (1.8-2.4) mg/dl Total Bilirubin (0.2-1) mg/dl AST (15-37) U/L ALT (12-78) U/L Alkaline Phosphatase (45-117) U/L Troponin I (0-0.045) ng/ml C-Reactive Protein (0-0.29) mg/dl NT-Pro-B Natriuret Pep (0-1800) pg/ml Total Protein (6.4-8.2) gm/dl Albumin (3.4-5.0) gm/dl Globulin (2.5-4.0) gm/dl Albumin/Globulin Ratio (0.9-2) Lipase (73-393) U/L Procalcitonin (0-0.5) ng/ml Urine Color Dark Yellow Urine Appearance Clear (Clear) Urine pH 5.0 (4.5-7.5) Ur Specific [place] 1.020 (1.000-1.030) Urine Protein Negative (Negative) Urine Glucose (UA) Negative (Negative) Urine Ketones Negative (Negative) Urine Blood Negative (Negative) Urine Nitrite Negative (Negative) Urine Bilirubin Negative (Negative) Urine Urobilinogen Negative (Negative) Ur Leukocyte Esterase Negative (Negative) COVID-19 Eval Order SARS-CoV-2 (PCR) (Negative) Influenza Type A (PCR) (Neg) Influenza Type B (PCR) (Neg) RSV (RT-PCR) (Neg) Imaging Data Radiologist's Impression: Chest X-Ray 10/25/20 13:04 SINGLE VIEW CHEST CLINICAL HISTORY: Sepsis. FINDINGS: 2 AP, portable, upright chest radiographs are compared to study dated 08/28/2019 and correlated with chest CT dated 08/06/2020. The examination is degraded by portable technique and apical lordotic positioning. The a left sub clavian central venous infusion port is unchanged in position. The heart is enlarged noting atherosclerotic calcification of the thoracic aorta. The pulmonary vasculature is noncongested. Emphysema and chronic interstitial thickening is similar to previous. Trace pleural effusions are suspected. No airspace consolidation is seen typical for pneumonia. A calcified granuloma is noted in the right lower lobe. Scarring/atelectasis is present at the lung bases. No pneumothorax is seen. The skeletal structures are osteopenic. The bony thorax is grossly intact. IMPRESSION: 1. Cardiomegaly and emphysema. 2. Suspect trace pleural effusions. ACT 112: Negative or not required by law. Electronically signed by: Vipul Mariee M.D. 10/25/2020 1:20 PM Abdomen/Pelvis CT 10/25/20 14:29 CT SCAN OF THE ABDOMEN AND PELVIS WITHOUT IV CONTRAST CLINICAL HISTORY: Sepsis. Acute renal insufficiency. Difficulty with urination. COMPARISON STUDY: Abdominal CT dated 08/06/2020. TECHNIQUE: CT scan of the abdomen and pelvis is performed from the lung bases to the proximal femora. Images are reviewed in the axial, sagittal, and coronal planes. IV contrast was not administered for this examination. A dose lowering technique was utilized adhering to the principles of ALARA. CT DOSE: 441.95 mGycm FINDINGS: Lung bases: The heart is enlarged noting trace pericardial effusion. There are coronary artery calcifications. Advanced emphysematous change is seen at the lung bases. There are small right and trace left pleural effusions with associated atelectasis. Mild nodular thickening along the right major fissure is unchanged. Intralobular septal thickening is noted the lung bases. Liver: The unenhanced liver is cirrhotic in morphology and heterogeneous in attenuation. There is nodularity of the hepatic surface contour. There is no intrahepatic biliary ductal dilatation. Gallbladder: The gallbladder is contracted. There is nonspecific gallbladder wal l thickening and edema which may be related to cirrhosis and ascites. Spleen: Normal in size and attenuation. Pancreas: The unenhanced pancreas is atrophic and grossly unremarkable. Adrenal glands: Unremarkable. Kidneys: The unenhanced kidneys demonstrate mild cortical atrophy and are without hydronephrosis. There are no renal calculi identified. A 3.9 cm cyst is noted in the left kidney. Cortical scarring is seen in the lower pole of the right kidney. There is nonspecific perinephric stranding. Abdominal vasculature: The abdominal aorta is normal in course and caliber noting advanced atherosclerotic calcification. Bowel: There is mild colonic diverticulosis without CT evidence of acute diverticulitis. No bowel obstruction is seen. Residual enteric contrast is seen in the colon. There is nonspecific wall thickening of the right colon. The appendix is not identified and reported surgically absent. Peritoneum: There is a small volume of abdominopelvic ascites. No intraperitoneal free air is identified. Lymphadenopathy: None. Pelvic viscera: The the prostate gland is diminutive and heterogeneous noting brachytherapy implants in place. The bladder wall is thickened and trabeculated indicating chronic outlet obstruction. Skeletal structures: The skeletal structures are osteopenic. There is moderate lumbosacral spondylosis. Chronic change is seen involving the posterior elements of L5 and S1. No lytic or blastic lesions are seen. Soft tissues: There is body wall edema. IMPRESSION: 1. Cardiomegaly and advanced emphysema. 2. Intralobular septal thickening is seen at the lung bases. This could represent acute versus chronic congestive change and clinical correlation will be required. 3. Small right and trace left pleural effusions with associated atelectasis. 4. Cirrhotic liver morphology. 5. Small volume of abdominopelvic ascites. 6. There is nonspecific wall thickening of the right colon which likely represents portal colopathy. Correlate clinically for invasive a superimposed infectious/inflammatory colitis. 7. There is nonspecific bilateral perinephric stranding. Correlate with clinical findings and urinalysis. 8. Body wall edema. 9. Additional findings as detailed above. ACT 112: Negative or not required by law. Electronically signed by: Vipul Mariee M.D. 10/25/2020 3:16 PM ECG Data Indication: + SOB/dyspnea Rate (beats per minute): 62 Rhythm: + normal sinus ECG Intervals/blocks: + Normal QRS, + Prolonged QT and + Normal NV ECG ST segments: + Normal ST segments MDM Narrative 1302: The patient was evaluated in room C7. A complete history and physical exam was performed Cardiac monitoring: An order was placed for continuous cardiac monitoring. The monitor shows a rate of 60 with sinus rhythm 1550: Vital signs stable. Labs show potassium of 5.4. Creatinine is at 3.26, baseline creatinine runs less than 2. Patient's lactic acid is elevated 2.2. There is judicious fluid that was given to the patient due to his history of fluid overloaded. Patient's proBNP is greater than 35,000 and his troponin is elevated more than 0.602. Alkaline phosphatase 258 AST ALT 145 and 140 respectively. Patient's procalcitonin is also elevated 0.68. Urinalysis is still pending. COVID-19 swab negative. Imaging shows cardiomegaly with congestive changes. There are also nonspecific wall thickening of the right colon representing portal colopathy and bilateral perinephric stranding. Patient was treated with broad-spectrum antibiotics. Patient will be admitted to the [facility] service. Dr. Sexton has been notified Impression & Plan JOHANNA (acute kidney injury), Sepsis, Non Hodgkin's lymphoma Discharge Plan Visit Data Chief Complaint: Illness Stated Complaint: ILLNESS, FEVER, VOMITING, DIARRHEA ED Provider: Erik Almendarez Discharge Problem: JOHANNA (acute kidney injury), Sepsis, Non Hodgkin's lymphoma Patient Disposition: Being Evaluated by Hospitalist Discharge Instructions Interventions: ED Discharge Assessment Last Done: 10/25/20 16:58 Forms Stand Alone Forms: [facility], Virtual Emergency Department, Important Visit Information Prescriptions Prescriptions: No Action codeine-guaifenesin 10-100 mg/5 mL liquid 5 ml PO Q6H PRN (Reason: cough) Qty: 236 RF: 0 aspirin [Adult Low Dose Aspirin] 81 mg tablet,delayed release (DR/EC) 81 mg PO DAILY RF: 0 folic acid 1 mg tablet 1 mg PO DAILY RF: 0 nitroglycerin 0.4 mg tablet, sublingual 0.4 mg SL Q5M PRN (Reason: Chest Pain) RF: 0 ascorbic acid (vitamin C) 500 mg capsule 500 mg PO DAILY RF: 0 simvastatin [Zocor] 20 mg tablet 20 mg PO DAILY RF: 0 clotrimazole-betamethasone 1-0.05 % cream 1 appln TOP BID PRN (Reason: Rash) RF: 0 metoprolol tartrate 25 mg tablet 25 mg PO DAILY RF: 0 lisinopril 40 mg tablet 40 mg PO DAILY RF: 0 memantine 5 mg tablet 10 mg PO BID RF: 0 Dulera 100-5 mcg/actuation HFA aerosol inhaler 2 puffs INH BID Qty: 13 RF: 5 ipratropium-albuterol 0.5 mg-3 mg(2.5 mg base)/3 mL solution for nebulization 3 ml INH Q4H PRN (Reason: shortness of breath or wheezing) Qty: 360 RF: 2 allopurinol 100 mg tablet 100 mg PO DAILY RF: 0 furosemide 40 mg Tablet 40 mg PO DAILY RF: 0 Referrals Referrals: Shayy Corey PA-C [Primary Care Provider] - Discharge Problem: Sepsis Qualifiers: Sepsis type: sepsis due to unspecified organism Sepsis acute organ dysfunction status: unspecified Qualified Code(s): A41.9 - Sepsis, unspecified organism
[2020-10-25] MEDS ORDERED: CEFEPIME CONSULT ACTIVE ONE (17:18)
--- NOTE | 2020-10-25 18:26 | Ultrasound Report ---
BILATERAL LOWER EXTREMITY VENOUS DOPPLER CLINICAL HISTORY: Bilateral lower extremity edema. Evaluate for deep venous thrombus. COMPARISON STUDY: No previous studies for comparison. TECHNIQUE: Sonography of the deep venous system of the bilateral lower extremities was performed. Co mpression and augmentation were evaluated. FINDINGS: The bilateral common femoral, superficial femoral and popliteal veins were compressible. A ugmentation was normal. Flow was shown within the deep calf vessels. IMPRESSION: No evidence of deep venous thrombus within the bilateral lower extremities. ACT 112: Negative or not required by law. Electronically signed by: Remberto Grimes M.D. 10/25/2020 6:25 PM
--- NOTE | 2020-10-25 18:28 | Ultrasound Report ---
US gallbladder CLINICAL HISTORY: elevated LFTs, mild edema seen on CT scan COMPARISON STUDY: CT of the abdomen and pelvis performed earlier today. FINDINGS: No hepatic lesions are identified. There is no biliary or pancreatic ductal dilatation. Com mon bile duct measures 3 mm in caliber. No gallstones are noted. Gallbladder wall thickening is noted . The gallbladder wall measures 6 mm in thickness. No sonographic Resendez sign was elicited. Pancreati c body is normal. Head and tail are obscured. There is slight right collecting system dilatation. Tra ce fluid within Morison's pouch was noted. IMPRESSION: 1. No gallstones or biliary ductal dilatation. 2. Gallbladder wall thickening, a nonspecific finding. No convincing evidence for acute cholecystitis . ACT 112: Negative or not required by law. Electronically signed by: Remberto Grimes M.D. 10/25/2020 6:27 PM
[2020-10-25] MEDS ORDERED: ACETAMINOPHEN 325 MG TAB PO PRN (18:48)
[2020-10-25] MEDS ORDERED: POLYETHYLENE (MIRALAX) 17 GM PACK PO PRN (18:48)
[2020-10-25] MEDS ORDERED: ALBUT/IPRATROP 3MG/0.5MG NEB 3 ML VIAL INH PRN (18:48)
[2020-10-25] MEDS ORDERED: ONDANSETRON INJ 2 MG/ML 2 ML VIAL IV PRN (18:48)
[2020-10-25] MEDS ORDERED: NITROGLYCERIN SL 0.4 MG/TAB TAB SL PRN (18:48)
[2020-10-25] MEDS: NORMOSOL-R 1,000 ML IV SCH (19:58)
[2020-10-25] MEDS: MEMANTINE HCL 10 MG TAB PO SCH (19:59)
[2020-10-25] MEDS: HEPARIN SOD 5,000 UNIT/0.5 ML VIAL SQ SCH (20:00)
[2020-10-25 22:52] LABS: BUN Creatinine Ratio 28.9 (10-20); Calcium 9.5 mg/dl (8.5-10.1); Creatinine Clr Calc Pharmacy 16.9 ml/min; Est GFR (African American) 21.4; Est GFR (Non-African American) 18.5; Potassium 5.7 mmol/L (3.5-5.1)
[2020-10-26 02:41] LABS: BUN Creatinine Ratio 30.5 (10-20); Creatinine Clr Calc Pharmacy 17.5 ml/min; Est GFR (African American) 22.4; Est GFR (Non-African American) 19.3; Potassium 5.9 mmol/L (3.5-5.1)
[2020-10-26] MEDS ORDERED: DEXTROSE 50% 50 ML SYRINGE IV ONE (03:45)
[2020-10-26] MEDS ORDERED: INSULIN HUMAN REGULAR PER UNIT 10 UNITS in SYRINGE 9.9 ML IV ONE (03:45)
[2020-10-26] MEDS: HEPARIN SOD 5,000 UNIT/0.5 ML VIAL SQ SCH ×3 (05:28→21:49)
[2020-10-26 06:11] LABS: Basophils # (auto) 0.02 K/uL (0-0.2); Basophils % (auto) 0.4 %; Eosinophils # (auto) 0.21 K/uL (0-0.5); Eosinophils % (auto) 4.1 %; Hematocrit (blood only) 43.7 % (42-52); Hemoglobin 14.7 g/dL (14.0-18.0); Immature Granulocytes # (auto) 0.01 K/uL (0.00-0.02); Immature Granulocytes % (auto) 0.2 %; Lymphocytes # (auto) 0.93 K/uL (1.2-3.4); Lymphocytes % (auto) 18.3 %; Mean Corpuscular Hemoglobin 27.8 pg (25-34); Mean Corpuscular Hgb Conc 33.6 g/dL (32-36); Mean Corpuscular Volume 82.8 fL (80-100); Mean Platelet Volume 11.1 fL (7.4-10.4); Monocytes # (auto) 0.56 K/uL (0.11-0.59); Neutrophils # (auto) 3.34 K/uL (1.4-6.5); Platelet Count 147 K/uL (130-400); RDW Standard Deviation 51.5 fL (36.4-46.3); Red Blood Count 5.28 M/uL (4.7-6.1); White Blood Count 5.07 K/uL (4.8-10.8)
[2020-10-26 06:39] LABS: BUN Creatinine Ratio 31.4 (10-20); Calcium 8.6 mg/dl (8.5-10.1); Creatinine Clr Calc Pharmacy 18.4 ml/min; Est GFR (African American) 23.7; Est GFR (Non-African American) 20.4; Magnesium 2.6 mg/dl (1.8-2.4); Potassium 4.7 mmol/L (3.5-5.1)
[2020-10-26 06:41] LABS: C Reactive Protein 2.23 mg/dl (0-0.29)
[2020-10-26] MEDS: ASPIRIN 81 MG ECTAB PO SCH (08:55)
[2020-10-26] MEDS: FOLIC ACID 1 MG TAB PO SCH (08:55)
[2020-10-26] MEDS: MEMANTINE HCL 10 MG TAB PO SCH ×2 (08:56→21:50)
[2020-10-26] MEDS: ASCORBIC ACID 500 MG TAB PO SCH (08:56)
[2020-10-26] MEDS: SIMVASTATIN 20 MG TAB PO SCH (08:56)
[2020-10-26] MEDS: FLUTICASONE/VILANTEROL 100/25MCG 14 PUFFS/INHALER INH SCH (09:00)
[2020-10-26] MEDS: NORMOSOL-R 1,000 ML IV SCH (09:02)
--- NOTE | 2020-10-26 12:12 | XCELERA ---
[id number] \\[id number]
--- NOTE | 2020-10-26 14:57 | Hospitalist Progress Note ---
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 If BUN doesn't improve, may consider nephrology consult. (2) Dyspnea: Multifactorial * - has noted pleural effusions with CT scan with atelectasis, this has not changed from CT scan in Jul- no acute need for thora - Patient with decreased nutritional status as well will check po4 level - does not appear fluid overloaded on exam - Will obtain bilateral duplex of the legs to rule out DVT for PE- with elevated D-dimer and BNP - ECHO as above - Continue with mometasone/formoterol inhaler - DuoNeb PRN (3) COPD (chronic obstructive pulmonary disease): As above, does not appear to be a COPD exacerbation - multifactorial with poor nutrition (4) Edema: As above- ECHO evaluate for decompensated heart function multifactorial causes - low albumin level as well - Gently resuscitate to euvolemia (5) Elevated troponin: Last ECG available for review was 4 years ago, now with septal and inferolateral changes with axis shift- No acute ST elevations or hyperacute T wave changes- Likely demand type II - Troponin I 0.6, will trend out with ECG, dyspnea is current symptom no chest pain with exertion or palpitations. - If continue to rise will place on Heparin Drip; although will need to lower [employer] - ECHO as above - Continue ASA - BB on hold to evaluate heart function in the setting of ? decompensated failure (6) CHF (congestive heart failure): CHF exacerbation vs. Sepsis vs. hypovolemia/malnutrition Again multifactorial, HR 60's NSR with SBP <90, MAPs >65 - this may be associated with his continued bb dosing with his rising renal function - Continue supportive care and r/o sepsis as above - ECHo (7) CAD (coronary artery disease): As above (8) Elevated liver enzymes: Get RUQ ultrasound- elevated LFT's with increasing INR to 1.3--- worsening of Lymphoma? vs cardiogenic hepatic congestion vs. poor nutrition - No major issues. (9) Elevated d-dimer: Patient not tachypneic, tachycardic, or hypoxic- Duplex studies ordered - relapse of lymphoma/non-hodgkins disease. Admission and Anticipated Discharge Date Admission Date: October 25, 2020 Subjective Comfortable today. No acute distress. Reports no fevers/chills, chest pain, shortness of breath, abdominal pain, nausea, or vomiting. Physical Exam Constitutional: WD/WN, vitals as above Eyes: EOM intact bilaterally; no conjunctival abnormality ENMT: external ear and nose normal, oropharynx normal Neck: trachea midline, no thyromegaly normal visual inspection Respiratory: normal respiratory effort, lungs clear to auscultation no respiratory distress Cardiovascular: RRR, no murmur, no edema Gastrointestinal (Abdomen): Inspection/Auscultation: abdomen normal to inspection; abdomen not distended Musculoskeletal: no cyanosis or clubbing, extremities motor strength 5/5 Skin: no rashes, warm and dry Neurologic: moves all extremities and awake Psychiatric: Orientation: alert, oriented to person and cooperative Results & Data Results & Data ([facility]) Vital Signs (Past 12 Hours) Vital Signs Temp Pulse Pulse Pulse Resp BP BP 10/26/20 12:00 36.4 C L 79 18 144/93 H 10/26/20 09:00 75 10/26/20 08:00 36.4 C L 75 18 133/80 10/26/20 03:33 36.4 C L 71 18 124/80 Pulse Ox 10/26/20 12:00 92 10/26/20 09:00 10/26/20 08:00 96 10/26/20 03:33 94 PG Care Time/CCT Total # of Minutes Spent Total Time Spent with Patient: Total time spent is greater than 50% in coordination of care (as documented) at patient's floor/unit and/or counseling patient: Coding Level of Care Code 24310 Subseq Hosp Care Lvl 2 Diagnoses JOHANNA (acute kidney injury) N17.9 Dyspnea R06.00 Dyspnea type: unspecified COPD (chronic obstructive pulmonary disease) J43.9 COPD type: emphysema Emphysema type: unspecified Edema R60.9 Edema type: unspecified Elevated troponin R77.8 CHF (congestive heart failure) I50.32 Heart failure type: diastolic Heart failure chronicity: chronic CAD (coronary artery disease) I25.10 Coronary Disease-Associated Artery/Lesion type: [place] artery [place] vs. transplanted heart: [place] heart Associated angina: without angina Elevated liver enzymes R74.8 Elevated d-dimer R79.89 (1) Dyspnea Dyspnea type: unspecified Qualified Code(s): R06.00 - Dyspnea, unspecified (2) COPD (chronic obstructive pulmonary disease) COPD type: emphysema Emphysema type: unspecified Qualified Code(s): J43.9 - Emphysema, unspecified (3) Edema Edema type: unspecified Qualified Code(s): R60.9 - Edema, unspecified (4) CHF (congestive heart failure) Heart failure type: diastolic Heart failure chronicity: chronic Qualified Code(s): I50.32 - Chronic diastolic (congestive) heart failure (5) CAD (coronary artery disease) Coronary Disease-Associated Artery/Lesion type: [place] artery [place] vs. transplanted heart: [place] heart Associated angina: without angina Qualified Code(s): I25.10 - Atherosclerotic heart disease of [place] coronary artery without angina pectoris
--- NOTE | 2020-10-26 17:03 | Cardiology Consultation ---
Date of Consultation October 26, 2020 Assessment & Plan (1) CHF (congestive heart failure): He presents with what appears to be congestive heart failure, that is likely due to his left ventricular dysfunction although interestingly his chest x-ray does not show pulmonary edema on presentation. Still with diuresis he feels better, his breathing is better and his creatinine is actually improving. He still has some edema and probably will need some more diuresis. (2) Cardiomyopathy: The cause of his cardiomyopathy is not clear, there are several possibilities. Since there are no wall motion abnormalities it may well be chemotherapy related (I need to investigate what type of chemotherapy he received 4 years ago), but it could certainly be ischemic since he had coronary disease in 2017 but it was nonobstructive. We may need some type of evaluation for ischemia but certainly I would not do a catheterization now. (3) CAD (coronary artery disease): He has known coronary artery disease which was nonobstructive in 2017. That could have progressed although he does not have anginal symptoms. I suspect that is not the cause of his cardiomyopathy but we may need to evaluate it. His troponin measurements are more suggestive of heart failure and demand ischemia than an acute ischemic event. (4) JOHANNA (acute kidney injury): He presented with significant elevation in his creatinine which has gradually improved with diuresis. Hopefully this will continue to improve. History of Present Illness Reason for Consultation: Cardiomyopathy, coronary artery disease Attending Physician: Ronald Ojeda MD History of Present Illness This is a 74-year-old male who has a history of COPD, prostate cancer, Hodgkin's lymphoma and coronary disease. Per his current records he had coronary disease identified at least in 2013 where he had 40 to 50% LAD and a 50% right coronary artery stenosis although I do not believe he had intervention. He tells me that this was done at [place]. He also had congestive heart failure with an ejection fraction of 55% in 2017. His current presentation was for shortness of breath and edema. Evaluation has included an echocardiogram on October 26, 2020 where he had severe global left ventricular hypokinesis with ejection fraction felt to be 20 to 25%. The right ventricle was mildly dilated and the right atrium was severely dilated with an elevated right ventricular systolic pressure. There was a small pericardial effusion. His electrocardiogram on presentation showed sinus rhythm with left anterior fascicular block and a possible septal infarct, in comparison to his prior electrocardiogram from November 2016 his QRS appeared wider, the septal infarct was new as is was the left anterior fascicular block, LAFB could explain the septal infarction pattern. His cardiac enzymes were slightly elevated in a relatively stable pattern. His chest x-ray did not show clear congestive heart failure. His creatinine on presentation was 3.26, most recently was 2.86. This is higher than it has been in the past. He tells me that he is currently feeling much better than on admission and has been going to the bathroom a lot. He is currently not short of breath while sitting in bed. He denies chest discomfort or lightheadedness or dizziness. Allergies Allergy/AdvReac Type Severity Reaction Status Date / Time Penicillins Allergy Mild RASH Verified 10/25/20 14:26 ciprofloxacin Allergy Unknown Verified 10/25/20 14:26 levofloxacin AdvReac Mild VOMITTING Verified 10/18/20 14:04 Home Medications Medication Instructions Recorded Confirmed Type ascorbic acid (vitamin C) 500 mg 500 mg PO DAILY cap 06/09/19 10/25/20 History capsule aspirin 81 mg tablet,delayed 81 mg PO DAILY 06/09/19 10/25/20 History release clotrimazole-betamethasone 1 1 appln TOP BID PRN 06/09/19 10/25/20 History %-0.05 % topical cream folic acid 1 mg tablet 1 mg PO DAILY 06/09/19 10/25/20 History lisinopril 40 mg tablet 40 mg PO DAILY tab 06/09/19 10/25/20 History metoprolol tartrate 25 mg tablet 25 mg PO DAILY tab 06/09/19 10/25/20 History nitroglycerin 0.4 mg sublingual 0.4 mg SL Q5M PRN 06/09/19 10/25/20 History tablet simvastatin 20 mg tablet 20 mg PO DAILY tab 06/09/19 10/25/20 History codeine 10 mg-guaifenesin 100 mg/5 5 ml PO Q6H PRN #236 ml 09/09/19 10/25/20 Rx mL oral liquid ipratropium 0.5 mg-albuterol 3 mg 3 ml INH Q4H PRN #360 ml 12/02/19 10/25/20 Rx (2.5 mg base)/3 mL nebulization soln memantine 5 mg tablet 10 mg PO BID tab 12/02/19 10/25/20 History mometasone-formoterol HFA 100 2 puffs INH BID #13 gm 12/02/19 10/25/20 Rx mcg-5 mcg/actuation aerosol inhaler allopurinol 100 mg tablet 100 mg PO DAILY 10/18/20 10/25/20 History furosemide 40 mg PO DAILY 10/25/20 10/25/20 History Patient History Medical History Atypical chest pain COPD (chronic obstructive pulmonary disease) Former cigarette smoker History of chemotherapy HTN (hypertension) Hyperlipidemia Non Hodgkin's lymphoma Prostate cancer (08/25/09) "Rise in PSA to 5.6 clinical stage TIC Status post biopsies biopsy stage T2b [place] grade 3+3" On 11/05/14 16:29 Liz Geiger wrote "Rise in PSA to 5.6 clinical stage TIC Status post biopsies biopsy stage T2b [place] grade 3+3" Sinusitis Family History Father Aneurysm Family/Other Prostate cancer Social History Smoking Status: Former smoker Hx Alcohol Use: No Hx Substance Use: No Preferred Language: Stateless Communication Ability: Effective 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 HEENT: Unremarkable Neck: No jugular venous distention, carotid pulses are normal and equal bilaterally without bruits. Pulmonary: Clear to auscultation bilaterally. Cardiac: Regular rhythm with no murmur, gallop or rub. Abdomen: Soft, nontender with normal bowel sounds. Extremities: No edema. Distal pulses intact. Neurologic: No focal findings. Gait is steady. Skin: No rash, ecchymoses or petechiae. Results & Data ([facility]) Vital Signs (Past 12 Hours) Vital Signs Temp Pulse Pulse Resp BP Pulse Ox 10/26/20 16:00 36.5 C 90 19 114/73 94 10/26/20 15:21 76 10/26/20 12:00 36.4 C L 79 18 144/93 H 92 10/26/20 09:00 75 10/26/20 08:00 36.4 C L 75 18 133/80 96 Laboratory Results Cardiac Enzymes 10/25/20 10/26/20 Range/Units 19:19 05:20 Troponin I 0.505 H* 0.561 H* (0-0.045) ng/ml CBC 10/26/20 Range/Units 05:20 WBC 5.07 (4.8-10.8) K/uL RBC 5.28 (4.7-6.1) M/uL Hgb 14.7 (14.0-18.0) g/dL Hct 43.7 (42-52) % Plt Count 147 (130-400) K/uL Neut # (Auto) 3.34 (1.4-6.5) K/uL Lymph # (Auto) 0.93 L (1.2-3.4) K/uL Giles # (Auto) 0.56 (0.11-0.59) K/uL Eos # (Auto) 0.21 (0-0.5) K/uL Baso # (Auto) 0.02 (0-0.2) K/uL Comprehensive Metabolic Panel 10/25/20 10/26/20 10/26/20 Range/Units 22:15 02:03 05:20 Sodium 136 135 L 137 (136-145) mmol/L Potassium 5.7 H 5.9 H 4.7 D (3.5-5.1) mmol/L Chloride 102 102 105 (98-107) mmol/L Carbon Dioxide 26 25 25 (21-32) mmol/L BUN 90 H 91 H 90 H (7-18) mg/dl Creatinine 3.11 H 3.00 H 2.86 H (0.6-1.4) mg/dl Glucose 85 81 97 (70-99) mg/dl Calcium 9.5 9.0 8.6 (8.5-10.1) mg/dl Intake and Output 10/26/20 10/26/20 10/26/20 06:59 14:59 22:59 Intake Total 250 / 800 3240 / 3240 Output Total 200 / 200 850 / 850 Balance 50 / 600 2390 / 2390 Intake: IV 1999 / 1999 Normosol-R 1,000 ml @ 80 mls/hr 1000 / 1000 IV .[id number] GRACY Rx#:[id number] Nss 1000ML 1,000 ml @ 80 mls/hr 1000 / 1000 IV .[id number] GRACY Rx#:[id number] Oral 250 / 490 1240 / 1240 Output: Urine Amount (Catheter) 200 / 200 850 / 850 San/Indwelling 200 / 200 850 / 850 Other: Weight 60.464 kg Weight Measurement Method Standing Scale Diagnostic Findings Telemetry: Sinus rhythm, no significant arrhythmia PG Care Time/CCT Total # of Minutes Spent Total Time Spent with Patient: Total time spent is greater than 50% in coordination of care (as documented) at patient's floor/unit and/or counseling patient: Coding Level of Care Code 47432 Initial Inpt Care Lvl 3 Diagnoses CHF (congestive heart failure) I50.32 Heart failure chronicity: chronic Heart failure type: diastolic Cardiomyopathy I42.9 Cardiomyopathy type: unspecified CAD (coronary artery disease) I25.10 Associated angina: without angina Coronary Disease-Associated Artery/Lesion type: [place] artery [place] vs. transplanted heart: [place] heart JOHANNA (acute kidney injury) N17.9 (1) CAD (coronary artery disease) Associated angina: without angina Coronary Disease-Associated Artery/Lesion type: [place] artery [place] vs. transplanted heart: [place] heart Qualified Code(s): I25.10 - Atherosclerotic heart disease of [place] coronary artery without angina pectoris (2) CHF (congestive heart failure) Heart failure chronicity: chronic Heart failure type: diastolic Qualified Code(s): I50.32 - Chronic diastolic (congestive) heart failure (3) Cardiomyopathy Cardiomyopathy type: unspecified Qualified Code(s): I42.9 - Cardiomyopathy, unspecified
--- NOTE | 2020-10-26 20:29 | CT Scan Report ---
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 A dose lowering technique was utilized adhering to the principles of ALARA. COMPARISON STUDY: CT abdomen and pelvis 10/25/2020 FINDINGS: Cardiomegaly. Intralobular septal thickening of the lung bases with groundglass densities. Small pleu ral effusions. No pneumatosis or pneumoperitoneum. Limited evaluation of the solid abdominal organs w ithout the use of IV contrast. Spleen is normal in size. Unremarkable appearance of the atrophic panc reas. Unremarkable adrenal glands. Contracted gallbladder. Heterogeneity of the liver with mild lary nal nodularity. Bilateral perinephric stranding. Suggested cyst of the inferior pole left kidney, 3.[address] of the inferior pole right kidney, 1.8 cm. Decompressed urinary bladder with San catheter. Brach ytherapy seeds of the prostate. Calcified plaque of the abdominal aorta. No pathologic adenopathy alessandra ntified. No bowel obstruction. Mild wall thickening of the ascending colon has improved from comparison. Diffu se mesenteric edema with anasarca. Trace abdominal pelvic ascites. No acute fracture. IMPRESSION: 1. Cardiomegaly with small pleural effusions, pulmonary edema, trace abdominopelvic ascites with anas arca. 2. Mild marginal nodularity of the liver suggestive of cirrhosis. 3. Mild wall thickening of the ascending colon has improved from yesterday's exam and may be secondar y to partial distention versus a nonspecific colitis. 4. No adenopathy identified. 5. Additional findings as above. ACT 112: Negative or not required by law. The above report was generated using voice recognition software. It may contain grammatical, syntax o r spelling errors. Electronically signed by: Nayan Marin M.D. 10/26/2020 8:28 PM
[2020-10-27] MEDS ORDERED: HEPARIN 100 UNIT/ML 5ML FLUSH FLUSH PRN (00:21)
[2020-10-27] MEDS: HEPARIN SOD 5,000 UNIT/0.5 ML VIAL SQ SCH ×3 (05:56→21:47)
[2020-10-27 06:28] LABS: Eosinophils # (auto) 0.23 K/uL (0-0.5); Eosinophils % (auto) 4.9 %; Hematocrit (blood only) 48.7 % (42-52); Hemoglobin 16.2 g/dL (14.0-18.0); Immature Granulocytes # (auto) 0.01 K/uL (0.00-0.02); Immature Granulocytes % (auto) 0.2 %; Lymphocytes # (auto) 0.84 K/uL (1.2-3.4); Lymphocytes % (auto) 17.8 %; Mean Corpuscular Hemoglobin 27.7 pg (25-34); Mean Corpuscular Hgb Conc 33.3 g/dL (32-36); Mean Corpuscular Volume 83.2 fL (80-100); Mean Platelet Volume 10.5 fL (7.4-10.4); Monocytes # (auto) 0.44 K/uL (0.11-0.59); Monocytes % (auto) 9.3 %; Neutrophils # (auto) 3.21 K/uL (1.4-6.5); Neutrophils % (auto) 67.8 %; Platelet Count 136 K/uL (130-400); RDW Coefficient of Variation 17.2 % (11.5-14.5); RDW Standard Deviation 51.4 fL (36.4-46.3); Red Blood Count 5.85 M/uL (4.7-6.1); White Blood Count 4.73 K/uL (4.8-10.8)
[2020-10-27 07:00] LABS: BUN Creatinine Ratio 33.5 (10-20); Calcium 8.7 mg/dl (8.5-10.1); Creatinine Clr Calc Pharmacy 25.1 ml/min; Est GFR (African American) 34.4; Est GFR (Non-African American) 29.7; Magnesium 2.5 mg/dl (1.8-2.4); Potassium 4.7 mmol/L (3.5-5.1)
[2020-10-27] MEDS: MEMANTINE HCL 10 MG TAB PO SCH ×2 (08:33→21:47)
[2020-10-27] MEDS: FLUTICASONE/VILANTEROL 100/25MCG 14 PUFFS/INHALER INH SCH (08:33)
[2020-10-27] MEDS: ASCORBIC ACID 500 MG TAB PO SCH (08:34)
[2020-10-27] MEDS: SIMVASTATIN 20 MG TAB PO SCH (08:34)
[2020-10-27] MEDS: ASPIRIN 81 MG ECTAB PO SCH (08:34)
[2020-10-27] MEDS: FOLIC ACID 1 MG TAB PO SCH (08:34)
--- NOTE | 2020-10-27 10:12 | Cardiology Progress Note ---
Date of Service October 27, 2020 Assessment & Plan (1) CHF (congestive heart failure): He presents with what appears to be congestive heart failure, that is likely due to his left ventricular dysfunction although interestingly his chest x-ray does not show pulmonary edema on presentation. Based on his weight he is not lost very much fluid, still with diuresis he feels better, his breathing is better and his creatinine is improving. (2) Cardiomyopathy: The cause of his cardiomyopathy is not clear, there are several possibilities. Since there are no wall motion abnormalities it may well be chemotherapy related (I need to investigate what type of chemotherapy he received 4 years ago), but it could certainly be ischemic since he had coronary disease in 2017 but it was nonobstructive. He will need an evaluation for ischemia and a catheterization would be preferable, I had held off on that because of his elevated creatinine. That is improving however and I discussed this with the patient and he is agreeable. I am tentatively going to arrange it for tomorrow. (3) CAD (coronary artery disease): He has known coronary artery disease which was nonobstructive in 2017. That could have progressed although he does not have anginal symptoms. I suspect that is not the cause of his cardiomyopathy but we may need to evaluate it. His troponin measurements are more suggestive of heart failure and demand ischemia than an acute ischemic event. (4) JOHANNA (acute kidney injury): He presented with significant elevation in his creatinine which has gradually improved. Hopefully this will continue to improve, although even now he is probably at minimal risk from dye-induced nephropathy. Admission and Anticipated Discharge Date Admission Date: October 25, 2020 Subjective He is doing well today, he is laying nearly flat on his bed and has no complaints of shortness of breath he is not having palpitations, lightheadedness or dizziness. I talked to him about evaluation of his cardiomyopathy which apparently was known by Dr. Tyler and he is planning on doing a catheterization, however the patient would prefer to have it done here. I will try to arrange that. He follows up with the cancer center here and is familiar with this institution. Physical Exam Physical Exam: Constitutional: Alert, cooperative and in no distress. HEENT: Unremarkable Neck: No jugular venous distention, carotid pulses are normal and equal bilaterally without bruits. Pulmonary: Clear to auscultation bilaterally. Cardiac: Regular rhythm with no murmur, gallop or rub. Abdomen: Soft, nontender with normal bowel sounds. Extremities: No edema. Distal pulses intact. Neurologic: No focal findings. Gait is steady. Skin: No rash, ecchymoses or petechiae. Results & Data ([place]) Vital Signs (Past 12 Hours) Vital Signs Temp Pulse Pulse Resp BP Pulse Ox 10/27/20 08:12 36.7 C 89 16 141/76 H 97 10/27/20 03:45 36.7 C 80 18 134/81 92 10/27/20 01:38 84 10/26/20 23:19 36.6 C 81 18 126/81 94 Laboratory Results Cardiac Enzymes 10/25/20 10/25/20 10/25/20 Range/Units 13:39 13:39 13:39 WBC (4.8-10.8) K/uL RBC (4.7-6.1) M/uL Hgb (14.0-18.0) g/dL Hct (42-52) % MCV (80-100) fL MCH (25-34) pg MCHC (32-36) g/dL RDW Std Deviation (36.4-46.3) fL RDW Coeff of Trini (11.5-14.5) % Plt Count (130-400) K/uL MPV (7.4-10.4) fL Immature Gran % (Auto) % Neut % (Auto) % Lymph % (Auto) % Piatt % (Auto) % Eos % (Auto) % Baso % (Auto) % Neut # (Auto) (1.4-6.5) K/uL Lymph # (Auto) (1.2-3.4) K/uL Piatt # (Auto) (0.11-0.59) K/uL Eos # (Auto) (0-0.5) K/uL Baso # (Auto) (0-0.2) K/uL Immature Gran # (Auto) (0.00-0.02) K/uL PT (9.0-12.0) Seconds INR (0.9-1.1) APTT (21.0-31.0) Seconds PTT Ratio D-Dimer (0-500) ug/L FEU VBG pH 7.31 L (7.36-7.41) VBG pCO2 55 H (38-50) mmHg VBG pO2 31 mmHg VBG HCO3 27 mmol/L VBG O2 Saturation < 60.0 % VBG Base Excess 0 mEq/L Barometric Pressure 733.2 mm/Hg Sodium 136 (136-145) mmol/L Potassium 5.4 H (3.5-5.1) mmol/L Chloride 102 (98-107) mmol/L Carbon Dioxide 27 (21-32) mmol/L Anion Gap 7.0 (3-11) BUN 93 H (7-18) mg/dl Creatinine 3.26 H (0.6-1.4) mg/dl Est Cr Clr Drug Dosing 16.1 ml/min Est GFR ( Amer) 20.2 Est GFR (Non-Af Amer) 17.4 BUN/Creatinine Ratio 28.7 H (10-20) Glucose 89 (70-99) mg/dl Lactate (0.4-2.0) mmol/L Calcium 9.5 (8.5-10.1) mg/dl Phosphorus (2.5-4.9) mg/dl Magnesium 2.6 H (1.8-2.4) mg/dl Total Bilirubin 0.7 (0.2-1) mg/dl ALT 140 H (12-78) U/L Alkaline Phosphatase 258 H (45-117) U/L Lactate Dehydrogenase (87-241) U/L C-Reactive Protein (0-0.29) mg/dl NT-Pro-B Natriuret Pep (0-1800) pg/ml Total Protein 6.5 (6.4-8.2) gm/dl Albumin 2.7 L (3.4-5.0) gm/dl Globulin 3.8 (2.5-4.0) gm/dl Albumin/Globulin Ratio 0.7 L (0.9-2) Lipase 105 (73-393) U/L Procalcitonin 0.68 H (0-0.5) ng/ml Urine Color Urine Appearance (Clear) Urine pH (4.5-7.5) Ur Specific Grimsley (1.000-1.030) Urine Protein (Negative) Urine Glucose (UA) (Negative) Urine Ketones (Negative) Urine Blood (Negative) Urine Nitrite (Negative) Urine Bilirubin (Negative) Urine Urobilinogen (Negative) Ur Leukocyte Esterase (Negative) Ur Random Creatinine mg/dl Ur Random Sodium mmol/L Stl C. diff Tox B Gene (Neg) COVID-19 Eval Order SARS-CoV-2 (PCR) (Negative) Influenza Type A (PCR) (Neg) Influenza Type B (PCR) (Neg) RSV (RT-PCR) (Neg) 10/25/20 10/25/20 10/25/20 Range/Units 13:39 13:39 13:39 WBC 5.70 (4.8-10.8) K/uL RBC 5.25 (4.7-6.1) M/uL Hgb 14.5 (14.0-18.0) g/dL Hct 44.1 (42-52) % MCV 84.0 (80-100) fL MCH 27.6 (25-34) pg MCHC 32.9 (32-36) g/dL RDW Std Deviation 52.2 H (36.4-46.3) fL RDW Coeff of Trini 17.1 H (11.5-14.5) % Plt Count 146 (130-400) K/uL MPV 10.2 (7.4-10.4) fL Immature Gran % (Auto) 0.2 % Neut % (Auto) 66.6 % Lymph % (Auto) 20.9 % Piatt % (Auto) 7.7 % Eos % (Auto) 4.4 % Baso % (Auto) 0.2 % Neut # (Auto) 3.80 (1.4-6.5) K/uL Lymph # (Auto) 1.19 L (1.2-3.4) K/uL Piatt # (Auto) 0.44 (0.11-0.59) K/uL Eos # (Auto) 0.25 (0-0.5) K/uL Baso # (Auto) 0.01 (0-0.2) K/uL Immature Gran # (Auto) 0.01 (0.00-0.02) K/uL PT 13.1 H (9.0-12.0) Seconds INR 1.3 H (0.9-1.1) APTT 27.6 (21.0-31.0) Seconds PTT Ratio 1.0 D-Dimer 41297 H* (0-500) ug/L FEU VBG pH (7.36-7.41) VBG pCO2 (38-50) mmHg VBG pO2 mmHg VBG HCO3 mmol/L VBG O2 Saturation % VBG Base Excess mEq/L Barometric Pressure mm/Hg Sodium (136-145) mmol/L Potassium (3.5-5.1) mmol/L Chloride (98-107) mmol/L Carbon Dioxide (21-32) mmol/L Anion Gap (3-11) BUN (7-18) mg/dl Creatinine (0.6-1.4) mg/dl Est Cr Clr Drug Dosing ml/min Est GFR ( Amer) Est GFR (Non-Af Amer) BUN/Creatinine Ratio (10-20) Glucose (70-99) mg/dl Lactate 2.2 H* (0.4-2.0) mmol/L Calcium (8.5-10.1) mg/dl Phosphorus (2.5-4.9) mg/dl Magnesium (1.8-2.4) mg/dl Total Bilirubin (0.2-1) mg/dl ALT (12-78) U/L Alkaline Phosphatase (45-117) U/L Lactate Dehydrogenase (87-241) U/L C-Reactive Protein (0-0.29) mg/dl NT-Pro-B Natriuret Pep (0-1800) pg/ml Total Protein (6.4-8.2) gm/dl Albumin (3.4-5.0) gm/dl Globulin (2.5-4.0) gm/dl Albumin/Globulin Ratio (0.9-2) Lipase (73-393) U/L Procalcitonin (0-0.5) ng/ml Urine Color Urine Appearance (Clear) Urine pH (4.5-7.5) Ur Specific Grimsley (1.000-1.030) Urine Protein (Negative) Urine Glucose (UA) (Negative) Urine Ketones (Negative) Urine Blood (Negative) Urine Nitrite (Negative) Urine Bilirubin (Negative) Urine Urobilinogen (Negative) Ur Leukocyte Esterase (Negative) Ur Random Creatinine mg/dl Ur Random Sodium mmol/L Stl C. diff Tox B Gene (Neg) COVID-19 Eval Order SARS-CoV-2 (PCR) (Negative) Influenza Type A (PCR) (Neg) Influenza Type B (PCR) (Neg) RSV (RT-PCR) (Neg) 10/25/20 10/25/20 10/25/20 Range/Units 13:39 13:39 14:17 WBC (4.8-10.8) K/uL RBC (4.7-6.1) M/uL Hgb (14.0-18.0) g/dL Hct (42-52) % MCV (80-100) fL MCH (25-34) pg MCHC (32-36) g/dL RDW Std Deviation (36.4-46.3) fL RDW Coeff of Trini (11.5-14.5) % Plt Count (130-400) K/uL MPV (7.4-10.4) fL Immature Gran % (Auto) % Neut % (Auto) % Lymph % (Auto) % Piatt % (Auto) % Eos % (Auto) % Baso % (Auto) % Neut # (Auto) (1.4-6.5) K/uL Lymph # (Auto) (1.2-3.4) K/uL Piatt # (Auto) (0.11-0.59) K/uL Eos # (Auto) (0-0.5) K/uL Baso # (Auto) (0-0.2) K/uL Immature Gran # (Auto) (0.00-0.02) K/uL PT (9.0-12.0) Seconds INR (0.9-1.1) APTT (21.0-31.0) Seconds PTT Ratio D-Dimer (0-500) ug/L FEU VBG pH (7.36-7.41) VBG pCO2 (38-50) mmHg VBG pO2 mmHg VBG HCO3 mmol/L VBG O2 Saturation % VBG Base Excess mEq/L Barometric Pressure mm/Hg Sodium (136-145) mmol/L Potassium (3.5-5.1) mmol/L Chloride (98-107) mmol/L Carbon Dioxide (21-32) mmol/L Anion Gap (3-11) BUN (7-18) mg/dl Creatinine (0.6-1.4) mg/dl Est Cr Clr Drug Dosing ml/min Est GFR ( Amer) Est GFR (Non-Af Amer) BUN/Creatinine Ratio (10-20) Glucose (70-99) mg/dl Lactate (0.4-2.0) mmol/L Calcium (8.5-10.1) mg/dl Phosphorus 5.2 H (2.5-4.9) mg/dl Magnesium (1.8-2.4) mg/dl Total Bilirubin (0.2-1) mg/dl ALT (12-78) U/L Alkaline Phosphatase (45-117) U/L Lactate Dehydrogenase (87-241) U/L C-Reactive Protein 3.06 H (0-0.29) mg/dl NT-Pro-B Natriuret Pep > 29722 H (0-1800) pg/ml Total Protein (6.4-8.2) gm/dl Albumin (3.4-5.0) gm/dl Globulin (2.5-4.0) gm/dl Albumin/Globulin Ratio (0.9-2) Lipase (73-393) U/L Procalcitonin (0-0.5) ng/ml Urine Color Urine Appearance (Clear) Urine pH (4.5-7.5) Ur Specific Grimsley (1.000-1.030) Urine Protein (Negative) Urine Glucose (UA) (Negative) Urine Ketones (Negative) Urine Blood (Negative) Urine Nitrite (Negative) Urine Bilirubin (Negative) Urine Urobilinogen (Negative) Ur Leukocyte Esterase (Negative) Ur Random Creatinine mg/dl Ur Random Sodium mmol/L Stl C. diff Tox B Gene (Neg) COVID-19 Eval Order [facility] at [facility] SARS-CoV-2 (PCR) (Negative) Influenza Type A (PCR) (Neg) Influenza Type B (PCR) (Neg) RSV (RT-PCR) (Neg) 10/25/20 10/25/20 10/25/20 Range/Units 14:17 15:34 16:06 WBC (4.8-10.8) K/uL RBC (4.7-6.1) M/uL Hgb (14.0-18.0) g/dL Hct (42-52) % MCV (80-100) fL MCH (25-34) pg MCHC (32-36) g/dL RDW Std Deviation (36.4-46.3) fL RDW Coeff of Trini (11.5-14.5) % Plt Count (130-400) K/uL MPV (7.4-10.4) fL Immature Gran % (Auto) % Neut % (Auto) % Lymph % (Auto) % Piatt % (Auto) % Eos % (Auto) % Baso % (Auto) % Neut # (Auto) (1.4-6.5) K/uL Lymph # (Auto) (1.2-3.4) K/uL Piatt # (Auto) (0.11-0.59) K/uL Eos # (Auto) (0-0.5) K/uL Baso # (Auto) (0-0.2) K/uL Immature Gran # (Auto) (0.00-0.02) K/uL PT (9.0-12.0) Seconds INR (0.9-1.1) APTT (21.0-31.0) Seconds PTT Ratio D-Dimer (0-500) ug/L FEU VBG pH (7.36-7.41) VBG pCO2 (38-50) mmHg VBG pO2 mmHg VBG HCO3 mmol/L VBG O2 Saturation % VBG Base Excess mEq/L Barometric Pressure mm/Hg Sodium (136-145) mmol/L Potassium (3.5-5.1) mmol/L Chloride (98-107) mmol/L Carbon Dioxide (21-32) mmol/L Anion Gap (3-11) BUN (7-18) mg/dl Creatinine (0.6-1.4) mg/dl Est Cr Clr Drug Dosing ml/min Est GFR ( Amer) Est GFR (Non-Af Amer) BUN/Creatinine Ratio (10-20) Glucose (70-99) mg/dl Lactate 2.3 H* (0.4-2.0) mmol/L Calcium (8.5-10.1) mg/dl Phosphorus (2.5-4.9) mg/dl Magnesium (1.8-2.4) mg/dl Total Bilirubin (0.2-1) mg/dl ALT (12-78) U/L Alkaline Phosphatase (45-117) U/L Lactate Dehydrogenase (87-241) U/L C-Reactive Protein (0-0.29) mg/dl NT-Pro-B Natriuret Pep (0-1800) pg/ml Total Protein (6.4-8.2) gm/dl Albumin (3.4-5.0) gm/dl Globulin (2.5-4.0) gm/dl Albumin/Globulin Ratio (0.9-2) Lipase (73-393) U/L Procalcitonin (0-0.5) ng/ml Urine Color Dark Yellow Urine Appearance Clear (Clear) Urine pH 5.0 (4.5-7.5) Ur Specific Grimsley 1.020 (1.000-1.030) Urine Protein Negative (Negative) Urine Glucose (UA) Negative (Negative) Urine Ketones Negative (Negative) Urine Blood Negative (Negative) Urine Nitrite Negative (Negative) Urine Bilirubin Negative (Negative) Urine Urobilinogen Negative (Negative) Ur Leukocyte Esterase Negative (Negative) Ur Random Creatinine mg/dl Ur Random Sodium mmol/L Stl C. diff Tox B Gene (Neg) COVID-19 Eval Order SARS-CoV-2 (PCR) NEGATIVE (Negative) Influenza Type A (PCR) Negative (Neg) Influenza Type B (PCR) Negative (Neg) RSV (RT-PCR) Negative (Neg) 10/25/20 10/25/20 10/25/20 Range/Units 16:06 21:25 22:15 WBC (4.8-10.8) K/uL RBC (4.7-6.1) M/uL Hgb (14.0-18.0) g/dL Hct (42-52) % MCV (80-100) fL MCH (25-34) pg MCHC (32-36) g/dL RDW Std Deviation (36.4-46.3) fL RDW Coeff of Trini (11.5-14.5) % Plt Count (130-400) K/uL MPV (7.4-10.4) fL Immature Gran % (Auto) % Neut % (Auto) % Lymph % (Auto) % Piatt % (Auto) % Eos % (Auto) % Baso % (Auto) % Neut # (Auto) (1.4-6.5) K/uL Lymph # (Auto) (1.2-3.4) K/uL Piatt # (Auto) (0.11-0.59) K/uL Eos # (Auto) (0-0.5) K/uL Baso # (Auto) (0-0.2) K/uL Immature Gran # (Auto) (0.00-0.02) K/uL PT (9.0-12.0) Seconds INR (0.9-1.1) APTT (21.0-31.0) Seconds PTT Ratio D-Dimer (0-500) ug/L FEU VBG pH (7.36-7.41) VBG pCO2 (38-50) mmHg VBG pO2 mmHg VBG HCO3 mmol/L VBG O2 Saturation % VBG Base Excess mEq/L Barometric Pressure mm/Hg Sodium 136 (136-145) mmol/L Potassium 5.7 H (3.5-5.1) mmol/L Chloride 102 (98-107) mmol/L Carbon Dioxide 26 (21-32) mmol/L Anion Gap 8.0 (3-11) BUN 90 H (7-18) mg/dl Creatinine 3.11 H (0.6-1.4) mg/dl Est Cr Clr Drug Dosing 16.9 ml/min Est GFR ( Amer) 21.4 Est GFR (Non-Af Amer) 18.5 BUN/Creatinine Ratio 28.9 H (10-20) Glucose 85 (70-99) mg/dl Lactate (0.4-2.0) mmol/L Calcium 9.5 (8.5-10.1) mg/dl Phosphorus (2.5-4.9) mg/dl Magnesium (1.8-2.4) mg/dl Total Bilirubin (0.2-1) mg/dl ALT (12-78) U/L Alkaline Phosphatase (45-117) U/L Lactate Dehydrogenase (87-241) U/L C-Reactive Protein (0-0.29) mg/dl NT-Pro-B Natriuret Pep (0-1800) pg/ml Total Protein (6.4-8.2) gm/dl Albumin (3.4-5.0) gm/dl Globulin (2.5-4.0) gm/dl Albumin/Globulin Ratio (0.9-2) Lipase (73-393) U/L Procalcitonin (0-0.5) ng/ml Urine Color Urine Appearance (Clear) Urine pH (4.5-7.5) Ur Specific Grimsley (1.000-1.030) Urine Protein (Negative) Urine Glucose (UA) (Negative) Urine Ketones (Negative) Urine Blood (Negative) Urine Nitrite (Negative) Urine Bilirubin (Negative) Urine Urobilinogen (Negative) Ur Leukocyte Esterase (Negative) Ur Random Creatinine 160.0 mg/dl Ur Random Sodium 17 mmol/L Stl C. diff Tox B Gene Negative Cdiff Gene (Neg) COVID-19 Eval Order SARS-CoV-2 (PCR) (Negative) Influenza Type A (PCR) (Neg) Influenza Type B (PCR) (Neg) RSV (RT-PCR) (Neg) 10/26/20 10/26/20 10/26/20 Range/Units 02:03 05:20 05:20 WBC 5.07 (4.8-10.8) K/uL RBC 5.28 (4.7-6.1) M/uL Hgb 14.7 (14.0-18.0) g/dL Hct 43.7 (42-52) % MCV 82.8 (80-100) fL MCH 27.8 (25-34) pg MCHC 33.6 (32-36) g/dL RDW Std Deviation 51.5 H (36.4-46.3) fL RDW Coeff of Trini 17.0 H (11.5-14.5) % Plt Count 147 (130-400) K/uL MPV 11.1 H (7.4-10.4) fL Immature Gran % (Auto) 0.2 % Neut % (Auto) 66.0 % Lymph % (Auto) 18.3 % Piatt % (Auto) 11.0 % Eos % (Auto) 4.1 % Baso % (Auto) 0.4 % Neut # (Auto) 3.34 (1.4-6.5) K/uL Lymph # (Auto) 0.93 L (1.2-3.4) K/uL Piatt # (Auto) 0.56 (0.11-0.59) K/uL Eos # (Auto) 0.21 (0-0.5) K/uL Baso # (Auto) 0.02 (0-0.2) K/uL Immature Gran # (Auto) 0.01 (0.00-0.02) K/uL PT (9.0-12.0) Seconds INR (0.9-1.1) APTT (21.0-31.0) Seconds PTT Ratio D-Dimer (0-500) ug/L FEU VBG pH (7.36-7.41) VBG pCO2 (38-50) mmHg VBG pO2 mmHg VBG HCO3 mmol/L VBG O2 Saturation % VBG Base Excess mEq/L Barometric Pressure mm/Hg Sodium 135 L 137 (136-145) mmol/L Potassium 5.9 H 4.7 D (3.5-5.1) mmol/L Chloride 102 105 (98-107) mmol/L Carbon Dioxide 25 25 (21-32) mmol/L Anion Gap 8.0 7.0 (3-11) BUN 91 H 90 H (7-18) mg/dl Creatinine 3.00 H 2.86 H (0.6-1.4) mg/dl Est Cr Clr Drug Dosing 17.5 18.4 ml/min Est GFR ( Amer) 22.4 23.7 Est GFR (Non-Af Amer) 19.3 20.4 BUN/Creatinine Ratio 30.5 H 31.4 H (10-20) Glucose 81 97 (70-99) mg/dl Lactate (0.4-2.0) mmol/L Calcium 9.0 8.6 (8.5-10.1) mg/dl Phosphorus (2.5-4.9) mg/dl Magnesium 2.6 H (1.8-2.4) mg/dl Total Bilirubin (0.2-1) mg/dl ALT (12-78) U/L Alkaline Phosphatase (45-117) U/L Lactate Dehydrogenase (87-241) U/L C-Reactive Protein 2.23 H (0-0.29) mg/dl NT-Pro-B Natriuret Pep (0-1800) pg/ml Total Protein (6.4-8.2) gm/dl Albumin (3.4-5.0) gm/dl Globulin (2.5-4.0) gm/dl Albumin/Globulin Ratio (0.9-2) Lipase (73-393) U/L Procalcitonin (0-0.5) ng/ml Urine Color Urine Appearance (Clear) Urine pH (4.5-7.5) Ur Specific Grimsley (1.000-1.030) Urine Protein (Negative) Urine Glucose (UA) (Negative) Urine Ketones (Negative) Urine Blood (Negative) Urine Nitrite (Negative) Urine Bilirubin (Negative) Urine Urobilinogen (Negative) Ur Leukocyte Esterase (Negative) Ur Random Creatinine mg/dl Ur Random Sodium mmol/L Stl C. diff Tox B Gene (Neg) COVID-19 Eval Order SARS-CoV-2 (PCR) (Negative) Influenza Type A (PCR) (Neg) Influenza Type B (PCR) (Neg) RSV (RT-PCR) (Neg) 10/27/20 10/27/20 10/27/20 Range/Units 06:07 06:07 06:07 WBC 4.73 L (4.8-10.8) K/uL RBC 5.85 (4.7-6.1) M/uL Hgb 16.2 (14.0-18.0) g/dL Hct 48.7 (42-52) % MCV 83.2 (80-100) fL MCH 27.7 (25-34) pg MCHC 33.3 (32-36) g/dL RDW Std Deviation 51.4 H (36.4-46.3) fL RDW Coeff of Trini 17.2 H (11.5-14.5) % Plt Count 136 (130-400) K/uL MPV 10.5 H (7.4-10.4) fL Immature Gran % (Auto) 0.2 % Neut % (Auto) 67.8 % Lymph % (Auto) 17.8 % Piatt % (Auto) 9.3 % Eos % (Auto) 4.9 % Baso % (Auto) 0.0 % Neut # (Auto) 3.21 (1.4-6.5) K/uL Lymph # (Auto) 0.84 L (1.2-3.4) K/uL Piatt # (Auto) 0.44 (0.11-0.59) K/uL Eos # (Auto) 0.23 (0-0.5) K/uL Baso # (Auto) 0.00 (0-0.2) K/uL Immature Gran # (Auto) 0.01 (0.00-0.02) K/uL PT (9.0-12.0) Seconds INR (0.9-1.1) APTT (21.0-31.0) Seconds PTT Ratio D-Dimer (0-500) ug/L FEU VBG pH (7.36-7.41) VBG pCO2 (38-50) mmHg VBG pO2 mmHg VBG HCO3 mmol/L VBG O2 Saturation % VBG Base Excess mEq/L Barometric Pressure mm/Hg Sodium 137 (136-145) mmol/L Potassium 4.7 (3.5-5.1) mmol/L Chloride 105 (98-107) mmol/L Carbon Dioxide 26 (21-32) mmol/L Anion Gap 6.0 (3-11) BUN 70 H (7-18) mg/dl Creatinine 2.10 H D (0.6-1.4) mg/dl Est Cr Clr Drug Dosing 25.1 ml/min Est GFR ( Amer) 34.4 Est GFR (Non-Af Amer) 29.7 BUN/Creatinine Ratio 33.5 H (10-20) Glucose 99 (70-99) mg/dl Lactate (0.4-2.0) mmol/L Calcium 8.7 (8.5-10.1) mg/dl Phosphorus (2.5-4.9) mg/dl Magnesium 2.5 H (1.8-2.4) mg/dl Total Bilirubin (0.2-1) mg/dl ALT (12-78) U/L Alkaline Phosphatase (45-117) U/L Lactate Dehydrogenase 263 H (87-241) U/L C-Reactive Protein (0-0.29) mg/dl NT-Pro-B Natriuret Pep (0-1800) pg/ml Total Protein (6.4-8.2) gm/dl Albumin (3.4-5.0) gm/dl Globulin (2.5-4.0) gm/dl Albumin/Globulin Ratio (0.9-2) Lipase (73-393) U/L Procalcitonin (0-0.5) ng/ml Urine Color Urine Appearance (Clear) Urine pH (4.5-7.5) Ur Specific Grimsley (1.000-1.030) Urine Protein (Negative) Urine Glucose (UA) (Negative) Urine Ketones (Negative) Urine Blood (Negative) Urine Nitrite (Negative) Urine Bilirubin (Negative) Urine Urobilinogen (Negative) Ur Leukocyte Esterase (Negative) Ur Random Creatinine mg/dl Ur Random Sodium mmol/L Stl C. diff Tox B Gene (Neg) COVID-19 Eval Order SARS-CoV-2 (PCR) (Negative) Influenza Type A (PCR) (Neg) Influenza Type B (PCR) (Neg) RSV (RT-PCR) (Neg) CBC 10/27/20 Range/Units 06:07 WBC 4.73 L (4.8-10.8) K/uL RBC 5.85 (4.7-6.1) M/uL Hgb 16.2 (14.0-18.0) g/dL Hct 48.7 (42-52) % Plt Count 136 (130-400) K/uL Neut # (Auto) 3.21 (1.4-6.5) K/uL Lymph # (Auto) 0.84 L (1.2-3.4) K/uL Piatt # (Auto) 0.44 (0.11-0.59) K/uL Eos # (Auto) 0.23 (0-0.5) K/uL Baso # (Auto) 0.00 (0-0.2) K/uL Comprehensive Metabolic Panel 10/27/20 Range/Units 06:07 Sodium 137 (136-145) mmol/L Potassium 4.7 (3.5-5.1) mmol/L Chloride 105 (98-107) mmol/L Carbon Dioxide 26 (21-32) mmol/L BUN 70 H (7-18) mg/dl Creatinine 2.10 H D (0.6-1.4) mg/dl Glucose 99 (70-99) mg/dl Calcium 8.7 (8.5-10.1) mg/dl Intake and Output 10/26/20 10/27/20 10/27/20 22:59 06:59 14:59 Intake Total 1485.333 / 4800.333 75 / 4800.333 Output Total 850 / 2700 1000 / 2700 Balance 635.333 / 2100.333 -925 / 2100.333 Intake: IV 745.333 / 2745.333 Normosol-R 1,000 ml @ 80 mls/hr 745.333 / 1745.333 IV .[id number] GRACY Rx#:[id number] Oral 745 75 / 2054 Output: Urine Amount (Catheter) 850 / 2700 1000 / 2700 San/Indwelling 850 / 2700 1000 / 2700 Other: Weight 61.2 kg Diagnostic Findings Telemetry: Sinus rhythm rate generally 70 to 80 bpm. No significant arrhythmia. PG Care Time/CCT Total # of Minutes Spent Total Time Spent with Patient: Total time spent is greater than 50% in coordination of care (as documented) at patient's floor/unit and/or counseling patient: Coding Level of Care Code 96166 Subseq Hosp Care Lvl 3 Diagnoses CHF (congestive heart failure) I50.32 Heart failure type: diastolic Heart failure chronicity: chronic Cardiomyopathy I42.9 Cardiomyopathy type: unspecified CAD (coronary artery disease) I25.10 Coronary Disease-Associated Artery/Lesion type: [place] artery [place] vs. transplanted heart: [place] heart Associated angina: without angina JOHANNA (acute kidney injury) N17.9 (1) CHF (congestive heart failure) Heart failure type: diastolic Heart failure chronicity: chronic Qualified Code(s): I50.32 - Chronic diastolic (congestive) heart failure (2) Cardiomyopathy Cardiomyopathy type: unspecified Qualified Code(s): I42.9 - Cardiomyopathy, unspecified (3) CAD (coronary artery disease) Coronary Disease-Associated Artery/Lesion type: [place] artery [place] vs. transplanted heart: [place] heart Associated angina: without angina Qualified Code(s): I25.10 - Atherosclerotic heart disease of [place] coronary artery without angina pectoris
[2020-10-27] MEDS: carvediloL 3.125 MG TAB PO SCH ×2 (11:07→21:47)
--- NOTE | 2020-10-27 21:20 | Hospitalist Progress Note ---
Date of Service October 27, 2020 Assessment & Plan (1) JOHANNA (acute kidney injury): JOHANNA stage II with 2.5 increase in RAISE MINER baseline 1.5 in June. - Appears pre-renal at this time with 30:1 BUN-RAISE MINER ratio, BUN increased to 93 - Multifactorial in cause with decreased oral intake in the setting of continuing dosing of diuretics, BB, and MATHEUS I - No protein or blood in urine - Hold diuretics, BB and MATHEUS - Evaluate heart function with ECHO - Gently resuscitate patient, challenge with 250 ml Normosol with appropriate rise in BP and MAPS- repeat lactate - Stopped IVF. If BUN doesn't improve, may consider nephrology consult. (2) Dyspnea: Multifactorial * - has noted pleural effusions with CT scan with atelectasis, this has not changed from CT scan in Jul- no acute need for thora - Patient with decreased nutritional status as well will check po4 level - does not appear fluid overloaded on exam - Will obtain bilateral duplex of the legs to rule out DVT for PE- with elevated D-dimer and BNP - ECHO as above - Continue with mometasone/formoterol inhaler - DuoNeb PRN Will obtain a cardiac cath in AM. (3) COPD (chronic obstructive pulmonary disease): As above, does not appear to be a COPD exacerbation - multifactorial with poor nutrition (4) Edema: As above- ECHO evaluate for decompensated heart function multifactorial causes - low albumin level as well - Gently resuscitate to euvolemia (5) Elevated troponin: Last ECG available for review was 4 years ago, now with septal and inferolateral changes with axis shift- No acute ST elevations or hyperacute T wave changes- Likely demand type II - Troponin I 0.6, will trend out with ECG, dyspnea is current symptom no chest pain with exertion or palpitations. - If continue to rise will place on Heparin Drip; although will need to lower RAISE MINER - ECHO as above - Continue ASA - BB on hold to evaluate heart function in the setting of ? decompensated failure (6) CHF (congestive heart failure): CHF exacerbation vs. Sepsis vs. hypovolemia/malnutrition Again multifactorial, HR 60's NSR with SBP <90, MAPs >65 - this may be associated with his continued bb dosing with his rising renal function - Continue supportive care and r/o sepsis as above - ECHo (7) CAD (coronary artery disease): As above (8) Elevated liver enzymes: Get RUQ ultrasound- elevated LFT's with increasing INR to 1.3--- worsening of Lymphoma? vs cardiogenic hepatic congestion vs. poor nutrition - No major issues. (9) Elevated d-dimer: Patient not tachypneic, tachycardic, or hypoxic- Duplex studies ordered - relapse of lymphoma/non-hodgkins disease. Admission and Anticipated Discharge Date Admission Date: October 25, 2020 Subjective Patient reports no new symptoms. Review of Systems Review of Systems: All systems reviewed & are unremarkable except as noted in HPI & below Physical Exam Physical Exam: Constitutional: WD/WN, vitals as above Eyes: EOM intact bilaterally; no conjunctival abnormality ENMT: external ear and nose normal, oropharynx normal Neck: trachea midline, no thyromegaly normal visual inspection Respiratory: normal respiratory effort, lungs clear to auscultation no respiratory distress Cardiovascular: RRR, no murmur, no edema Gastrointestinal (Abdomen): Inspection/Auscultation: abdomen normal to inspection; abdomen not distended Musculoskeletal: no cyanosis or clubbing, extremities motor strength 5/5 Skin: no rashes, warm and dry Neurologic: moves all extremities and awake Psychiatric: Orientation: alert, oriented to person and cooperative Results & Data Results & Data ([facility]) Vital Signs (Past 12 Hours) Vital Signs Temp Pulse Resp BP Pulse Ox 10/27/20 19:14 36.9 C 85 18 124/72 92 10/27/20 16:03 36.9 C 81 19 124/78 96 10/27/20 11:03 36.9 C 84 18 123/76 93 PG Care Time/CCT Total # of Minutes Spent Total Time Spent with Patient: Total time spent is greater than 50% in coordination of care (as documented) at patient's floor/unit and/or counseling patient: Coding Level of Care Code 34840 Subseq Hosp Care Lvl 3 Diagnoses JOHANNA (acute kidney injury) N17.9 Dyspnea R06.00 Dyspnea type: unspecified COPD (chronic obstructive pulmonary disease) J43.9 COPD type: emphysema Emphysema type: unspecified Edema R60.9 Edema type: unspecified Elevated troponin R77.8 CHF (congestive heart failure) I50.32 Heart failure chronicity: chronic Heart failure type: diastolic CAD (coronary artery disease) I25.10 Associated angina: without angina Coronary Disease-Associated Artery/Lesion type: [place] artery [place] vs. transplanted heart: [place] heart Elevated liver enzymes R74.8 Elevated d-dimer R79.89 Time Spent (min) 35 (1) CAD (coronary artery disease) Associated angina: without angina Coronary Disease-Associated Artery/Lesion type: [place] artery [place] vs. transplanted heart: [place] heart Qualified Code(s): I25.10 - Atherosclerotic heart disease of [place] coronary artery without angina pectoris (2) CHF (congestive heart failure) Heart failure chronicity: chronic Heart failure type: diastolic Qualified Code(s): I50.32 - Chronic diastolic (congestive) heart failure (3) Dyspnea Dyspnea type: unspecified Qualified Code(s): R06.00 - Dyspnea, unspecified (4) Edema Edema type: unspecified Qualified Code(s): R60.9 - Edema, unspecified (5) COPD (chronic obstructive pulmonary disease) COPD type: emphysema Emphysema type: unspecified Qualified Code(s): J43.9 - Emphysema, unspecified
[2020-10-28] MEDS: HEPARIN SOD 5,000 UNIT/0.5 ML VIAL SQ SCH ×3 (05:53→21:54)
[2020-10-28] MEDS ORDERED: SODIUM CHLORIDE 0.9% 1000ML 1,000 ML IV SCH (06:00)
[2020-10-28 06:43] LABS: Basophils # (auto) 0.01 K/uL (0-0.2); Basophils % (auto) 0.2 %; Eosinophils # (auto) 0.34 K/uL (0-0.5); Eosinophils % (auto) 7.9 %; Hematocrit (blood only) 45.6 % (42-52); Hemoglobin 15.2 g/dL (14.0-18.0); Lymphocytes # (auto) 0.96 K/uL (1.2-3.4); Lymphocytes % (auto) 22.3 %; Mean Corpuscular Hemoglobin 27.6 pg (25-34); Mean Corpuscular Hgb Conc 33.3 g/dL (32-36); Mean Corpuscular Volume 82.8 fL (80-100); Mean Platelet Volume 10.7 fL (7.4-10.4); Monocytes # (auto) 0.54 K/uL (0.11-0.59); Monocytes % (auto) 12.5 %; Neutrophils # (auto) 2.46 K/uL (1.4-6.5); Neutrophils % (auto) 57.1 %; Platelet Count 146 K/uL (130-400); RDW Coefficient of Variation 17.4 % (11.5-14.5); RDW Standard Deviation 52.5 fL (36.4-46.3); Red Blood Count 5.51 M/uL (4.7-6.1); White Blood Count 4.31 K/uL (4.8-10.8)
[2020-10-28 07:15] LABS: BUN Creatinine Ratio 32.3 (10-20); Calcium 8.8 mg/dl (8.5-10.1); Creatinine Clr Calc Pharmacy 31.7 ml/min; Est GFR (African American) 45.7; Est GFR (Non-African American) 39.4; Magnesium 2.3 mg/dl (1.8-2.4); Potassium 4.8 mmol/L (3.5-5.1)
[2020-10-28] MEDS: SIMVASTATIN 20 MG TAB PO SCH (08:48)
[2020-10-28] MEDS: carvediloL 3.125 MG TAB PO SCH (08:48)
[2020-10-28] MEDS: FOLIC ACID 1 MG TAB PO SCH (08:48)
[2020-10-28] MEDS: MEMANTINE HCL 10 MG TAB PO SCH ×2 (08:48→21:54)
[2020-10-28] MEDS: FLUTICASONE/VILANTEROL 100/25MCG 14 PUFFS/INHALER INH SCH (08:48)
[2020-10-28] MEDS: ASPIRIN 81 MG ECTAB PO SCH (08:48)
[2020-10-28] MEDS: ASCORBIC ACID 500 MG TAB PO SCH (08:48)
[2020-10-28] MEDS ORDERED: HEPARIN (PORCINE) 1000 UNIT/ML 10 ML (CATH LAB USE ONLY) ONE (09:34)
[2020-10-28] MEDS ORDERED: niCARdipine HCL INJ 2.5 MG/ML 10 ML AMP ONE (09:34)
[2020-10-28] MEDS ORDERED: fentaNYL citrate 100 MCG/2 ML VIAL ONE (09:34)
[2020-10-28] MEDS ORDERED: MIDAZOLAM HCL 1 MG/ML 2ML VIAL ONE (09:34)
[2020-10-28] MEDS ORDERED: NITROGLYCERIN/D5W 100MCG/ML 20ML SYR ONE (09:35)
--- NOTE | 2020-10-28 10:49 | Pre Anesthesia Assessment ---
Date of Service October 28, 2020 Pre Sedation Assessment Vital Signs Temp Pulse Pulse Resp BP Pulse Ox 10/28/20 09:26 84 18 133/91 95 10/28/20 08:00 82 10/28/20 07:37 97.5 F L 82 17 136/85 92 10/28/20 04:00 98.4 F 84 18 139/83 92 10/27/20 23:00 98.1 F 85 82 18 126/81 90 10/27/20 19:14 98.4 F 85 18 124/72 92 10/27/20 16:03 98.4 F 81 19 124/78 96 10/27/20 11:03 98.4 F 84 18 123/76 93 Cardiovascular RRR, no murmur, no edema Respiratory normal respiratory effort, lungs clear to auscultation Pre-Sedation Airway Assessment Smoking Status: Former smoker Hx Sleep Apnea: No Hx Difficult Intubation: No Short, Thick Neck: No Thyromental Distance: > or= 3.5 Finger Breadths Oral Cavity: + WNL Mallampati Class: II ASA: ASA2 NPO Status Date of Last Intake of Fluids: 10/28/20 Time of Last Intake of Fluids: 16:00 Date of Last Intake of Solid Food: 10/28/20 Time of Last Intake of Solid Foods: 16:00 Procedure Planning Contraindications for Sedation: none Current Medications Reviewed: Yes Notes The planned sedation has been discussed with the patient. Informed Consent was obtained. I have identified the patient, determined the appropriateness of sedation and have assessed the patient immediately prior to the procedure. All medicine(s) and interventions are by my order.
--- NOTE | 2020-10-28 10:50 | Post Anesthesia Assessment ---
Date of Service October 28, 2020 Post Sedation Assessment Vital Signs Temp Pulse Pulse Resp BP Pulse Ox 10/28/20 09:26 84 18 133/91 95 10/28/20 08:00 82 10/28/20 07:37 97.5 F L 82 17 136/85 92 10/28/20 04:00 98.4 F 84 18 139/83 92 10/27/20 23:00 98.1 F 85 82 18 126/81 90 10/27/20 19:14 98.4 F 85 18 124/72 92 10/27/20 16:03 98.4 F 81 19 124/78 96 10/27/20 11:03 98.4 F 84 18 123/76 93 Recovery Score Activity: Moves 4 extremities Respiration: Deep Breath/Cough Circulation: +/-20% PreAnes Value Consciousness: Fully Awake Oxygen Saturation: O2 needed for >90% Discharge Sedation Level of Care: Fast Track Phase II Post Sedation Plan On clinical assessment, the patient appears to have tolerated the sedation without complications. Patient is recovering as anticipated. Patient will continue to be monitored by nursing and may be discharged when sedation discharge criteria are met per below protocol. Upon Completions of procedure up to 15 minutes continue every 5 minute vital signs and the P.A.R. score; then discharge to a Phase I or Fast Track to Phase II per the following guidelines: * Discharge Patient to appropriate Phase II area if PAR is 8 or greater or return to pre- procedure baseline. The post - procedure orders will be as directed. * If PAR score is less than 8 or not return to pre-procedure baseline then patient will follow Phase I monitoring till PAR is reached for Phase II. The Phase I may be done in procedure room or may call to secure a Phase I area. * If naloxone or flumazenil are used for reversal, hold in Phase I for continued monitoring from when last reversal dose was given for a minimum of 60 minutes or longer pending the nurse and/or physician discretion of patient condition before discharge to Phase II. Please call the Sedation Physician to re-evaluate and complete post-note for discharge to Phase II area. Do NOT discharge from procedure sedation or Phase 1 until post- sedation evaluation note is complete by procedure /sedation MD Sedation Discharge Instructions to be given to the patient at discharge to home.
--- NOTE | 2020-10-28 11:00 | Cardiac Catheterization ---
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 Clinical evaluation leading to the procedure CAD Presenation: Sx unlikely to be ischemic Anginal Classification: No Symptoms Heart Failure: NYHA Class: CCS IV Cardiogenic Shock within 24 Hours: No Cardiac Arrest within 24 Hours: No Imaging Studies Past 6 Months: Yes Stress Studies Past 6 Months: No Diagnostic Physicians Name: Jean Jaquez MD Status: Elective Closure Device Percutaneous Entry Location: Radial Closure Device: Radial Band Recommendations: Medical Therapy and/or Counseling Intraprocedure Events Significant Disection: No Perforation: No Cardiac Cath Procedure Full Procedure Date October 28, 2020 Pre-Procedure Diagnosis Pre-Procedure Diagnosis: Cardiomyopathy AUC Score AUC Score: 7 Post-Procedure Diagnosis Post-Procedure Diagnosis: Moderate CAD and Elevated Intracardiac Pressures Procedure(s) Performed Procedure(s) Performed: Coronary Angiography and Left Heart Cath Rf Manager Jean Jaquez MD Pai Gow Dealer(s) Peter Estimated Blood Loss Estimated Blood Loss: 10 Medication(s) Medication(s): Fentanyl, Heparin, Lidocaine 1%, Nicardipine, Nitroglycerin and Versed Summary of Findings Indication: Cardiomyopathy Access: 6Fr right radial artery Catheters: [place] Findings: LM -normal caliber, luminal regularities LAD -medium caliber, 20 to 30% mid segment disease, distal vessel wraps around apex. Large D1 without significant disease. Circumflex -medium caliber, angulated takeoff with 40 to 50% ostial stenosis. Large OM 2 without any disease. RCA -dominant, large caliber, 40% distal stenosis. Large PDA without significant disease. LVEDP -18 Arterial Closure: TR band Summary: 1. Mild to moderate nonobstructive coronary artery disease -40% distal RCA 40-50% ostial circumflex 20 to 30% mid LAD 2. Nonischemic cardiomyopathy 3. Borderline intracardiac filling pressure. LVEDP 18 Recommendations: Continued guideline directed medical therapy for nonischemic cardiomyopathy Continued ASCVD risk factor modification Hemodynamics Rest Ao:: 103/58/76 Final Ao: 100/58/78 LV: 101/18 Recommendations Recommendations: Medical Therapy and/or Counseling Specimens Specimens: None Radiation Exposure (mGy) 532 Contrast (mls) 35 Fluids (cc crystalloids) Fluids (cc crystalloids): 50 Drains Drains: None Anesthesia Moderate [id number] Procedural Complication(s) None Disposition PCU I attest to the content of the Intraoperative Record and any orders documented therein. Any exceptions are noted below. [facility] Card Cath Procedure Codes Cardiac Catheterization Procedure 1: Cardiovascular Cath Procedures: 29910 Coronaries and LHC (+/-LV) Moderate Sedation Procedure 1: Sedation/Anesthesia: 94847 Mod Sedation by the same physician;Init15 Min Child Age 5 & Up PG Care Time/CCT Total # of Minutes Spent Total Time Spent with Patient: Total time spent is greater than 50% in coordination of care (as documented) at patient's floor/unit and/or counseling patient:
--- NOTE | 2020-10-28 11:44 | Cardiology Progress Note ---
Date of Service October 28, 2020 Assessment & Plan (1) CHF (congestive heart failure): He presented with what appears to be congestive heart failure, that is likely due to his left ventricular dysfunction although interestingly his chest x-ray does not show pulmonary edema on presentation. Based on his weight he is not lost very much fluid, if any, still with diuresis he feels better, his breathing is better and his creatinine is improving. (2) Cardiomyopathy: The cause of his cardiomyopathy is not clear, there remain several possibilities. He did receive doxorubicin with his chemotherapy in 2017 so this is probably the most likely cause. It is evidently not due to coronary artery disease. I am going to order the remainder of the blood work to look for reversible causes of cardiomyopathy and I am going to continue to treat him with medications. Although his creatinine is improving and we may want to try Entresto or an MATHEUS at some point I am going to go up on the carvedilol today. (3) CAD (coronary artery disease): He has known coronary artery disease which was nonobstructive in 2017 and not significant currently. This does not explain his cardiomyopathy. (4) JOHANNA (acute kidney injury): He presented with significant elevation in his creatinine which has gradually improved. Hopefully this will continue to improve, even after the dye load today. If it does continue to improve I would add an MATHEUS/ARB to his regimen Admission and Anticipated Discharge Date Admission Date: October 25, 2020 Subjective He is doing well post cath, which did not show any obstructive disease. He is resting in bed and is hungry for lunch. He has no cardiovascular complaints. Physical Exam Physical Exam: Constitutional: Alert, cooperative and in no distress. HEENT: Unremarkable Neck: No jugular venous distention, carotid pulses are normal and equal bilaterally without bruits. Pulmonary: Clear to auscultation bilaterally. Cardiac: Regular rhythm with no murmur, gallop or rub. Abdomen: Soft, nontender with normal bowel sounds. Extremities: +1 bilateral pretibial edema. Distal pulses intact. Neurologic: No focal findings. Gait is steady. Skin: No rash, ecchymoses or petechiae. Results & Data ([place]) Vital Signs (Past 12 Hours) Vital Signs Temp Pulse Pulse Resp BP Pulse Ox 10/28/20 11:05 74 16 123/83 92 10/28/20 10:50 76 16 119/71 93 10/28/20 09:26 84 18 133/91 95 10/28/20 08:00 82 10/28/20 07:37 36.4 C L 82 17 136/85 92 10/28/20 04:00 36.9 C 84 18 139/83 92 Laboratory Results CBC 10/28/20 Range/Units 06:03 WBC 4.31 L (4.8-10.8) K/uL RBC 5.51 (4.7-6.1) M/uL Hgb 15.2 (14.0-18.0) g/dL Hct 45.6 (42-52) % Plt Count 146 (130-400) K/uL Neut # (Auto) 2.46 (1.4-6.5) K/uL Lymph # (Auto) 0.96 L (1.2-3.4) K/uL [place] # (Auto) 0.54 (0.11-0.59) K/uL Eos # (Auto) 0.34 (0-0.5) K/uL Baso # (Auto) 0.01 (0-0.2) K/uL Comprehensive Metabolic Panel 10/28/20 Range/Units 06:03 Sodium 140 (136-145) mmol/L Potassium 4.8 (3.5-5.1) mmol/L Chloride 108 H (98-107) mmol/L Carbon Dioxide 28 (21-32) mmol/L BUN 54 H (7-18) mg/dl Creatinine 1.66 H D (0.6-1.4) mg/dl Glucose 95 (70-99) mg/dl Calcium 8.8 (8.5-10.1) mg/dl Intake and Output 10/27/20 10/28/20 10/28/20 22:59 06:59 14:59 Output Total 1000 / 1000 Balance -1000 / -1000 Output: Urine Amount (Catheter) 1000 / 1000 San/Indwelling 1000 / 1000 Other: Weight 63.6 kg Weight Measurement Method [facility] Diagnostic Findings Telemetry: Sinus rhythm typically in the 80s. No significant arrhythmia. PG Care Time/CCT Total # of Minutes Spent Total Time Spent with Patient: Total time spent is greater than 50% in coordination of care (as documented) at patient's floor/unit and/or counseling patient: Coding Level of Care Code 30082 Subseq Hosp Care Lvl 3 Diagnoses CHF (congestive heart failure) I50.32 Heart failure type: diastolic Heart failure chronicity: chronic Cardiomyopathy I42.9 Cardiomyopathy type: unspecified CAD (coronary artery disease) I25.10 Coronary Disease-Associated Artery/Lesion type: [place] artery [place] vs. transplanted heart: [place] heart Associated angina: without angina JOHANNA (acute kidney injury) N17.9 (1) CHF (congestive heart failure) Heart failure type: diastolic Heart failure chronicity: chronic Qualified Code(s): I50.32 - Chronic diastolic (congestive) heart failure (2) Cardiomyopathy Cardiomyopathy type: unspecified Qualified Code(s): I42.9 - Cardiomyopathy, unspecified (3) CAD (coronary artery disease) Coronary Disease-Associated Artery/Lesion type: [place] artery [place] vs. transplanted heart: [place] heart Associated angina: without angina Qualified Code(s): I25.10 - Atherosclerotic heart disease of [place] coronary artery without angina pectoris
[2020-10-28] MEDS: carvediloL 6.25 MG TAB PO SCH (21:54)
--- NOTE | 2020-10-28 22:07 | Hospitalist Progress Note ---
Date of Service October 28, 2020 Assessment & Plan (1) JOHANNA (acute kidney injury): JOHANNA stage II with 2.5 increase in BEVEL POLISHER baseline 1.5 in June. - Appears pre-renal at this time with 30:1 BUN-BEVEL POLISHER ratio, BUN increased to 93 - Multifactorial in cause with decreased oral intake in the setting of continuing dosing of diuretics, BB, and MATHEUS I - No protein or blood in urine - Hold diuretics and MATHEUS -Now on carvedilol 6.25 mg PO BID - Evaluate heart function with ECHO - Stopped IVF. If BUN doesn't improve, may consider nephrology consult. (2) Dyspnea: Multifactorial * - has noted pleural effusions with CT scan with atelectasis, this has not changed from CT scan in Jul- no acute need for thora - Patient with decreased nutritional status as well will check po4 level - does not appear fluid overloaded on exam - Will obtain bilateral duplex of the legs to rule out DVT for PE- with elevated D-dimer and BNP - ECHO as above - Continue with mometasone/formoterol inhaler - DuoNeb PRN CARDIAC CATH: showed nonischemic cardiomyopathy. added beta omer (3) COPD (chronic obstructive pulmonary disease): As above, does not appear to be a COPD exacerbation - multifactorial with poor nutrition (4) Edema: As above- ECHO evaluate for decompensated heart function multifactorial causes - low albumin level as well - Gently resuscitate to euvolemia (5) Elevated troponin: Last ECG available for review was 4 years ago, now with septal and inferolateral changes with axis shift- No acute ST elevations or hyperacute T wave changes- Likely demand type II - Troponin I 0.6, will trend out with ECG, dyspnea is current symptom no chest pain with exertion or palpitations. - If continue to rise will place on Heparin Drip; although will need to lower BEVEL POLISHER - ECHO as above - Continue ASA - BB on hold to evaluate heart function in the setting of ? decompensated failure (6) CHF (congestive heart failure): CHF exacerbation vs. Sepsis vs. hypovolemia/malnutrition Again multifactorial, HR 60's NSR with SBP <90, MAPs >65 - this may be associated with his continued bb dosing with his rising renal function - Continue supportive care and r/o sepsis as above - ECHo (7) CAD (coronary artery disease): As above (8) Elevated liver enzymes: Get RUQ ultrasound- elevated LFT's with increasing INR to 1.3--- worsening of Lymphoma? vs cardiogenic hepatic congestion vs. poor nutrition - No major issues. (9) Elevated d-dimer: Patient not tachypneic, tachycardic, or hypoxic- Duplex studies ordered - relapse of lymphoma/non-hodgkins disease. Admission and Anticipated Discharge Date Admission Date: October 25, 2020 Subjective 74 yo male reports feeling well. Review of Systems Review of Systems: All systems reviewed & are unremarkable except as noted in HPI & below Physical Exam Physical Exam: Constitutional: WD/WN, vitals as above Eyes: EOM intact bilaterally; no conjunctival abnormality ENMT: external ear and nose normal, oropharynx normal Neck: trachea midline, no thyromegaly normal visual inspection Respiratory: normal respiratory effort, lungs clear to auscultation no respiratory distress Cardiovascular: RRR, no murmur, no edema Gastrointestinal (Abdomen): Inspection/Auscultation: abdomen normal to inspection; abdomen not distended Musculoskeletal: no cyanosis or clubbing, extremities motor strength 5/5 Skin: no rashes, warm and dry Neurologic: moves all extremities and awake Psychiatric: Orientation: alert, oriented to person and cooperative Results & Data Results & Data ([facility]) Vital Signs (Past 12 Hours) Vital Signs Temp Pulse Resp BP Pulse Ox Pulse Ox 10/28/20 18:00 96 10/28/20 16:46 36.4 C L 82 20 125/83 99 10/28/20 15:46 36.7 C 80 18 126/80 97 10/28/20 14:46 79 18 121/80 96 10/28/20 13:46 79 18 125/82 94 10/28/20 12:46 78 18 134/91 94 10/28/20 12:16 78 18 142/86 H 97 10/28/20 11:46 81 16 133/86 94 10/28/20 11:31 76 16 132/82 99 10/28/20 11:16 74 16 128/84 92 10/28/20 11:05 74 16 123/83 92 10/28/20 10:50 76 16 119/71 93 PG Care Time/CCT Total # of Minutes Spent Total Time Spent with Patient: Total time spent is greater than 50% in c oordination of care (as documented) at patient's floor/unit and/or counseling patient: Coding Level of Care Code 93554 Subseq Hosp Care Lvl 2 Diagnoses JOHANNA (acute kidney injury) N17.9 Dyspnea R06.00 Dyspnea type: unspecified COPD (chronic obstructive pulmonary disease) J43.9 COPD type: emphysema Emphysema type: unspecified Edema R60.9 Edema type: unspecified Elevated troponin R77.8 CHF (congestive heart failure) I50.32 Heart failure chronicity: chronic Heart failure type: diastolic CAD (coronary artery disease) I25.10 Associated angina: without angina Coronary Disease-Associated Artery/Lesion type: [place] artery [place] vs. transplanted heart: [place] heart Elevated liver enzymes R74.8 Elevated d-dimer R79.89 Time Spent (min) 25 (1) CAD (coronary artery disease) Associated angina: without angina Coronary Disease-Associated Artery/Lesion type: [place] artery [place] vs. transplanted heart: [place] heart Qualified Co de(s): I25.10 - Atherosclerotic heart disease of [place] coronary artery without angina pectoris (2) CHF (congestive heart failure) Heart failure chronicity: chronic Heart failure type: diastolic Qualified Code(s): I50.32 - Chronic diastolic (congestive) heart failure (3) Dyspnea Dyspnea type: unspecified Qualified Code(s): R06.00 - Dyspnea, unspecified (4) Edema Edema type: unspecified Qualified Code(s): R60.9 - Edema, unspecified (5) COPD (chronic obstructive pulmonary disease) COPD type: emphysema Emphysema type: unspecified Qualified Code(s): J43.9 - Emphysema, unspecified
[2020-10-29] MEDS: HEPARIN SOD 5,000 UNIT/0.5 ML VIAL SQ SCH ×2 (06:21→13:34)
[2020-10-29] MEDS: FOLIC ACID 1 MG TAB PO SCH (07:56)
[2020-10-29] MEDS: ASCORBIC ACID 500 MG TAB PO SCH (07:56)
[2020-10-29] MEDS: ASPIRIN 81 MG ECTAB PO SCH (07:56)
[2020-10-29] MEDS: MEMANTINE HCL 10 MG TAB PO SCH (07:56)
[2020-10-29] MEDS: SIMVASTATIN 20 MG TAB PO SCH (07:56)
[2020-10-29] MEDS: carvediloL 6.25 MG TAB PO SCH (07:56)
[2020-10-29] MEDS: FLUTICASONE/VILANTEROL 100/25MCG 14 PUFFS/INHALER INH SCH (07:57)
[2020-10-29 11:14] LABS: BUN Creatinine Ratio 25.7 (10-20); Calcium 8.4 mg/dl (8.5-10.1); Creatinine Clr Calc Pharmacy 34.6 ml/min; Est GFR (African American) 50.9; Est GFR (Non-African American) 43.9; Potassium 4.8 mmol/L (3.5-5.1)
--- NOTE | 2020-10-29 13:15 | Cardiology Progress Note ---
Date of Service October 29, 2020 Assessment & Plan (1) CHF (congestive heart failure): He presented with what appears to be congestive heart failure, that is likely due to his left ventricular dysfunction although interestingly his chest x-ray does not show pulmonary edema on presentation. Based on his weight he is not lost very much fluid, if any, still with diuresis he feels better, his breathing is better and his creatinine is improving. (2) Cardiomyopathy: The cause of his cardiomyopathy is not clear, there remain several possibilities. He did receive doxorubicin with his chemotherapy in 2017 so this is probably the most likely cause. It is evidently not due to coronary artery disease. His iron level and HIV status are normal. Although his creatinine is improving and we may want to try Entresto or an MATHEUS at some point, however with receiving x-ray dye yesterday and his creatinine still elevated I would hold off for now. We can do that as an outpatient. (3) CAD (coronary artery disease): He has known coronary artery disease which was nonobstructive in 2017 and not significant currently. This does not explain his cardiomyopathy. (4) JOHANNA (acute kidney injury): He presented with significant elevation in his creatinine which has gradually improved. Hopefully this will continue to improve, even after the dye load yesterday. If it does continue to improve I would add an MATHEUS/ARB to his regimen but we can do this as an outpatient. Admission and Anticipated Discharge Date Admission Date: October 25, 2020 Subjective He is feeling well today, no shortness of breath or chest discomfort. Physical Exam Physical Exam: Constitutional: Alert, cooperative and in no distress. Pulmonary: Clear to auscultation bilaterally. Cardiac: Regular rhythm with no murmur, gallop or rub. Abdomen: Soft, nontender with normal bowel sounds. Extremities: +1 bilateral pretibial edema. Skin: No rash, ecchymoses or petechiae. Results & Data ([facility]) Vital Signs (Past 12 Hours) Vital Signs Temp Pulse Pulse Resp BP Pulse Ox 10/29/20 11:53 36.7 C 80 20 109/73 93 10/29/20 08:00 90 10/29/20 07:39 36.9 C 83 18 130/84 92 10/29/20 03:59 36.6 C 83 18 134/86 92 Laboratory Results Comprehensive Metabolic Panel 04/09/21 Range/Units 10:16 Sodium 139 (136-145) mmol/L Potassium 4.8 (3.5-5.1) mmol/L Chloride 110 H (98-107) mmol/L Carbon Dioxide 25 (21-32) mmol/L BUN 39 H (7-18) mg/dl Creatinine 1.52 H (0.6-1.4) mg/dl Glucose 141 H (70-99) mg/dl Calcium 8.4 L (8.5-10.1) mg/dl Intake and Output 10/28/20 10/29/20 10/29/20 22:59 06:59 14:59 Intake Total 1000 / 1240 600 / 600 Output Total 500 / 1300 300 / 1300 Balance 500 / -60 -300 / -60 600 / 600 Intake: IV 1000 / 1000 Nss 1000ML 1,000 ml @ 75 mls/hr 1000 / 1000 IV .[id number] GRACY Rx#:[id number] Oral 600 / 600 Output: Urine Amount (Catheter) 500 / 1300 300 / 1300 San/Indwelling 500 / 1300 300 / 1300 Other: Other Intake Source SIPS Weight 63.4 kg Weight Measurement Method Built in [facility] Diagnostic Findings Telemetry: Sinus rhythm generally in the 80s. PG Care Time/CCT Total # of Minutes Spent Total Time Spent with Patient: Total time spent is greater than 50% in coordination of care (as documented) at patient's floor/unit and/or counseling patient: Coding Level of Care Code 08577 Subseq Hosp Care Lvl 2 Diagnoses CHF (congestive heart failure) I50.32 Heart failure type: diastolic Heart failure chronicity: chronic Cardiomyopathy I42.9 Cardiomyopathy type: unspecified CAD (coronary artery disease) I25.10 Coronary Disease-Associated Artery/Lesion type: [place] artery [place] vs. transplanted heart: [place] heart Associated angina: without angina JOHANNA (acute kidney injury) N17.9 (1) CHF (congestive heart failure) Heart failure type: diastolic Heart failure chronicity: chronic Qualified Code(s): I50.32 - Chronic diastolic (congestive) heart failure (2) Cardiomyopathy Cardiomyopathy type: unspecified Qualified Code(s): I42.9 - Cardiomyopathy, unspecified (3) CAD (coronary artery disease) Coronary Disease-Associated Artery/Lesion type: [place] artery [place] vs. [place] heart: [place] heart Associated angina: without angina Qualified Code(s): I25.10 - Atherosclerotic heart disease of [place] coronary artery without angina pectoris
--- NOTE | 2020-11-01 22:26 | Discharge Summary ---
Date of Service October 29, 2020 Admission HPI Per Admitting Provider 74 YOM with past medical history of Hodkin's lymphoma (recently in remission, however concerns this may be re-lapsing), prostate cacncer with seed implant 11/08/09, COPD, past smoker, CHF (EF55% 2016), CAD (LAD 40-50% 2013, mid RCA 50% 2013), GERD. Patient received his second dose of COVID vaccine ~October 11, this is when he feels he never got back to baseline. Over the past 2 weeks Mr Pink has been experiencing early saiety with decreased foot intake, "smells food and loses his appetite". He has also experienced some lower quadrant abdominal pain that was sharp in nature, followed with about 2 days of fever and diarrhea. He is still having diarrhea and feels as this is associated with when he drinks water or liquids so his oral intake has been down. The abdominal pain and the fevers have resolved. The diarrhea is small in volume, no blood, and brown in color and "he needs to go right away". He has not taken anything for this and due to his poor food intake has not noticed if it gets better or worse with food. He has also been experiencing leg swelling and cramping with an increase in his dyspnea which his PCP has been following and increased his diuretics with no change to his leg swelling or dyspnea. The patient presented to the emergency room for weakness and not feeling well with the above symptoms. In the ER the patient had a workup performed for sepsis and a D-dimer, troponin I, and VBG for his dyspnea. D- dimer 15,370, Troponin I 0.602, Lactate 2.3, and noted to have a tripling of his BUN/WINCHER to 93/3.26. Hospitalist team was notified for admission. Patient will be admitted for continued resuscitation and evaluation of his perfusion and oxygenation and following of his biomarkers. Patient with multifactorial causes for his decompensatory state. Inflamitory markers are elevated so will continue Cefipime while cultures are pending, follow cardiac status with volume resuscitation and continue to follow for acute decompensation and trending of troponin, follow renal function and hemodynamics closely. Principal Diagnosis Acute LV diastolic CHF Discharge Exam Constitutional: WD/WN, vitals as above Eyes: EOM intact bilaterally; no conjunctival abnormality ENMT: external ear and nose normal, oropharynx normal Neck: trachea midline, no thyromegaly normal visual inspection Respiratory: normal respiratory effort, lungs clear to auscultation no respiratory distress Cardiovascular: RRR, no murmur, no edema Gastrointestinal (Abdomen): Inspection/Auscultation: abdomen normal to inspection; abdomen not distended Musculoskeletal: no cyanosis or clubbing, extremities motor strength 5/5 Skin: no rashes, warm and dry Neurologic: moves all extremities and awake Psychiatric: Orientation: alert, oriented to person and cooperative Discharge Data Allergies Allergy/AdvReac Type Severity Reaction Status Date / Time Penicillins Allergy Mild RASH Verified 10/25/20 14:26 ciprofloxacin Allergy Unknown Verified 10/25/20 14:26 levofloxacin AdvReac Mild VOMITTING Verified 10/18/20 14:04 Consultations 10/25/20 15:27 ED Decision to Admit Stat 10/26/20 14:58 Consult Cardiology Routine Procedures Performed Operation Date: 10/28/20 09:30 Actual Procedures s Cineradiography w/Routine Exam - Modesto Jaquez MD p Cath, Left with Cors and Vent - Modesto Jaquez MD Ordered Studies 10/25/20 14:29 CT abd pelvis wo con Stat 10/25/20 16:06 US venous doppler LE BI Urgent 10/25/20 17:02 US gallbladder Routine 10/26/20 17:09 CT abd pelvis oral con only Routine 10/28/20 06:57 CL Cath Imgs for PACS use only Routine Hospital Course (1) JOHANNA (acute kidney injury): JOHANNA stage II with 2.5 increase in WINCHER baseline 1.5 in June. - Appears pre-renal at this time with 30:1 BUN-WINCHER ratio, BUN increased to 93 - Multifactorial in cause with decreased oral intake in the setting of continuing dosing of diuretics, BB, and MATHEUS I - No protein or blood in urine - Hold diuretics and MATHEUS -Now on carvedilol 6.25 mg PO BID - Evaluate heart function with ECHO: shows severe global hypokinesis and low EF -will discharge on lasix every other day. (2) Dyspnea: Multifactorial * - has noted pleural effusions with CT scan with atelectasis, this has not changed from CT scan in Jul- no acute need for thora - Patient with decreased nutritional status as well will check po4 level - does not appear fluid overloaded on exam - Will obtain bilateral duplex of the legs to rule out DVT for PE- with elevated D-dimer and BNP - ECHO as above - Continue with mometasone/formoterol inhaler - DuoNeb PRN CARDIAC CATH: showed nonischemic cardiomyopathy. added beta omer (3) COPD (chronic obstructive pulmonary disease): As above, does not appear to be a COPD exacerbation - multifactorial with poor nutrition (4) Edema: As above- ECHO evaluate for decompensated heart function multifactorial causes - low albumin level as well - Gently resuscitate to euvolemia (5) Elevated troponin: Last ECG available for review was 4 years ago, now with septal and inferolateral changes with axis shift- No acute ST elevations or hyperacute T wave changes- Likely demand type II - Troponin I 0.6, will trend out with ECG, dyspnea is current symptom no chest pain with exertion or palpitations. - If continue to rise will place on Heparin Drip; although will need to lower WINCHER - ECHO as above - Continue ASA - BB on hold to evaluate heart function in the setting of ? decompensated failure (6) CHF (congestive heart failure): Acute LV diastolic CHF CHF exacerbation vs. Sepsis vs. hypovolemia/malnutrition Again multifactorial, HR 60's NSR with SBP <90, MAPs >65 - this may be associated with his continued bb dosing with his rising renal function - Continue supportive care and r/o sepsis as above - ECHo (7) CAD (coronary artery disease): As above (8) Elevated liver enzymes: Get RUQ ultrasound- elevated LFT's with increasing INR to 1.3--- worsening of Lymphoma? vs cardiogenic hepatic congestion vs. poor nutrition - No major issues. (9) Elevated d-dimer: Patient not tachypneic, tachycardic, or hypoxic- Duplex studies ordered - relapse of lymphoma/non-hodgkins disease. Total Time Total Time Spent Total Time Spent (In Minutes): 32 Total Time Includes: Examination of the Patient, Discharge Planning and Medication Reconciliation Discharge Plan Discharge Items Patient Disposition: Home - Self-Care Reason For Visit: Hypovoemia, Rule out Sepsis Discharge Diagnosis: hypovolemia, rule out sepsis Activity: Resume your previous activity Non-emergency contact: Primary Care Provider Call non-emergency contact if: you have any medication questions Follow-up/Referrals: Shayy Corey PA-C [Primary Care Provider] - Diet: Heart Healthy Addtl Attending Provider Instructions: Call your Primary Care doctor if any of the following symptoms or problems start or get worse: * Shortness of breath or difficulty breathing * Wake up at night short of breath * Chest pain * Cough * Swelling of your hands, feet, or legs * More fatigued or tired with your normal activity * Palpitations - sudden fast heart beats WEIGHT * Weigh yourself every morning after using the bathroom. * Use the same scale. * Wear the same amount of clothing. * Write your weight down on a chart. * Call your Primary Care doctor if you gain more than 2-3 pounds in 1-2 days. MEDICATIONS * Use this discharge instruction sheet for medication instructions. * Take your medications at the time your doctor ordered. * Do not skip a dose of your medicines. * If you miss a dose of medicine, take it as soon as possible, but DO NOT DOUBLE A DOSE. * Read your medicine information when you get home. * Know all of the side effects of your medicine. If in doubt, ask your pharmacist * Call your Primary Care doctor's office if you have any side effects. * Be sure all of your doctors know what medicine and herbs you take (including cold, flu, and herbal medicine). Take the following with you to your follow-up doctor appointments: * Weight Chart * Medication List * List of questions Do not drink excessive alcohol, beer or wine. Pending Studies at Discharge: No Stand-Alone Forms: [facility], Smoking Cessation Medications and DC Order Prescriptions: New carvedilol 6.25 mg Tablet 6.25 mg PO BID Qty: 60 RF: 0 Continued codeine-guaifenesin 10-100 mg/5 mL liquid 5 ml PO Q6H PRN (Reason: cough) Qty: 236 RF: 0 aspirin [Adult Low Dose Aspirin] 81 mg tablet,delayed release (DR/EC) 81 mg PO DAILY RF: 0 folic acid 1 mg tablet 1 mg PO DAILY RF: 0 nitroglycerin 0.4 mg tablet, sublingual 0.4 mg SL Q5M PRN (Reason: Chest Pain) RF: 0 ascorbic acid (vitamin C) 500 mg capsule 500 mg PO DAILY RF: 0 simvastatin [Zocor] 20 mg tablet 20 mg PO DAILY RF: 0 clotrimazole-betamethasone 1-0.05 % cream 1 appln TOP BID PRN (Reason: Rash) RF: 0 memantine 5 mg tablet 10 mg PO BID RF: 0 Dulera 100-5 mcg/actuation HFA aerosol inhaler 2 puffs INH BID Qty: 13 RF: 5 ipratropium-albuterol 0.5 mg-3 mg(2.5 mg base)/3 mL solution for nebulization 3 ml INH Q4H PRN (Reason: shortness of breath or wheezing) Qty: 360 RF: 2 allopurinol 100 mg tablet 100 mg PO DAILY RF: 0 Changed furosemide 40 mg Tablet 40 mg PO Q48H Qty: 0 RF: 0 Discontinued metoprolol tartrate 25 mg tablet 25 mg PO DAILY RF: 0 lisinopril 40 mg tablet 40 mg PO DAILY RF: 0 Discharge Orders: Discharge Order (Routine); Ordered 10/29/20 Ordered By: Maxi Kimble Admission Data Admit Date/Time: 10/25/20 16:33 Attending Provider: Maxi Kimble Admit Provider: Kwan Sexton Primary Care Provider: Shayy Corey Other Providers: Ronald Ojeda ; Gunnar Winchester Other Interventions: Discharge Summary Assessment (RN) Last Done: 10/29/20 15:19 Coding Level of Care Code D/C Day Management >30 mins Diagnoses JOHANNA (acute kidney injury) N17.9 Dyspnea R06.00 Dyspnea type: unspecified COPD (chronic obstructive pulmonary disease) J43.9 COPD type: emphysema Emphysema type: unspecified Edema R60.9 Edema type: unspecified Elevated troponin R77.8 CHF (congestive heart failure) I50.32 Heart failure type: diastolic Heart failure chronicity: chronic CAD (coronary artery disease) I25.10 Coronary Disease-Associated Artery/Lesion type: [place] artery [place] vs. transplanted heart: [place] heart Associated angina: without angina Elevated liver enzymes R74.8 Elevated d-dimer R79.89
== END 2020-10-29 17:38 | disposition home or self-care (01) | DRG 287 ==
LOC: ED 12:39 → SUATTDRO 16:33 → 2S 16:33